=== PATIENT | male | born 1960 | race Caucasian/White ===

== ENCOUNTER → 2020-10-13 11:14 | Outpatient (BNVA) | payer OTHER, SELFPAY | PROVIDERS: Family Provider Physician Assistant Medical; PCP Physician Assistant Medical; Referring Provider Physician Assistant Medical; Visit Provider Orthopaedic Surgery | DX: M25.569 Pain in unspecified knee (principal) | CPT/HCPCS: 73560; 73565 ==

== ENCOUNTER → 2020-12-08 07:54 | Day surgery (SDC) | payer OTHER, SELFPAY | PROVIDERS: PCP Physician Assistant Medical; Visit Provider Orthopaedic Surgery | DX: Z01.818 Encounter for other preprocedural examination (principal) | CPT/HCPCS: 93005 ==

== ENCOUNTER → 2020-12-17 12:10 | Outpatient (BNVA) | payer OTHER, SELFPAY | PROVIDERS: PCP Physician Assistant Medical; Visit Provider Orthopaedic Surgery | DX: Z01.812 Encounter for preprocedural laboratory examination (principal); Z20.822 Contact with and (suspected) exposure to COVID-19 | CPT/HCPCS: 87635 ==

== ENCOUNTER 2020-12-22 09:49 | Observation (INO) | payer OTHER, SELFPAY ==
--- NOTE | 2020-12-08 07:54 | ECG_ITS ---
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 Measurements Intervals Hardy Rate: 57 P: 30 MT: 130 QRS: -22 QRSD: 114 T: 1 QT: 379 QTc: 370 Interpretive Statements SINUS BRADYCARDIA BORDERLINE LEFT AXIS DEVIATION [QRS AXIS < -20] MODERATE INTRAVENTRICULAR CONDUCTION DELAY [110+ ms QRS DURATION] MINIMAL VOLTAGE CRITERIA FOR LVH, CONSIDER NORMAL VARIANT [MEETS CRITERIA IN ONE OF: R(aVL), S(V1), R(V5), R(V5/V6)+S(V1)] Compared to ECG 06/29/2014 05:41:00 Intraventricular conduction delay now present Electronically Signed On 12-08-2020 19:21:30 CDT by Anabell Kang M.D. [id number]
[2020-12-08 08:04] VITALS: BMI 34.0
[2020-12-08 08:55] LABS: Basophils # 0.1 10^3/uL (0.0-0.1); Basophils % 1.4 %; Eosinophils # 0.2 10^3/uL (0.0-0.8); Eosinophils % 1.7 %; Hematocrit 38.1 % (42.0-52.0); Lymphocytes # 2.1 10^3/uL (0.8-4.8); Lymphocytes % 24.3 %; Mean Corpuscular HGB Conc 34.1 g/dL (30.0-36.0); Mean Corpuscular Hemoglobin 30.7 pg (28.0-34.0); Mean Corpuscular Volume 89.9 fl (80-94); Mean Platelet Volume 11.9 fL (7.4-10.4); Monocytes # 0.9 10^3/uL (0.2-0.9); Monocytes % 10.3 %; Neutrophils # 5.22 10^3/uL (1.8-7.7); Neutrophils % 60.7 %; Nucleated Red Blood Cells % 0 %; Platelet Count 211 10^3/cmm (130-400); Red Blood Count 4.24 10^6/uL (4.1-5.3); Red Cell Distribution Width 13.1 % (12.1-15.1); White Blood Count 8.6 10^3/uL (4.0-10.0)
[2020-12-08 09:15] LABS: Anion Gap 13.1 (5-19); Blood Urea Nitrogen 10 mg/dL (6-20); Calcium 9.7 mg/dL (8.5-10.5); Carbon Dioxide 25 mmol/L (22-29); Chloride 103 mmol/L (98-107); Glucose 106 mg/dL (65-115); Osmolality Calculated 283 mOsm/kg (285-295); Potassium 4.1 mmol/L (3.5-5.1); Sodium 137 mmol/L (136-145)
--- NOTE | 2020-12-08 10:51 | P.ANESASSM_ITS ---
Pre-Anesthetic Assessment Pre-Anesthetic Assessment: Height/Weight: Height 1.73 m Weight 101.605 kg Proposed Procedure: Operation Date: 12/22/20 09:35 Proposed Procedures p Total Knee Arthroplasty 69118 M17.0(Right) - Fly Cline MD Was Beta Rosetta taken within 24 hours: Yes Was Clonidine taken within 24 hours: N/A Social: Social History: No alcohol and No tobacco Exam: Pre-Anes Outpt Exam: alert, oriented x 3, clear to auscultation bilaterally and regular rate & rhythm Airway: Submandibular: WNL Cervical ROM: WNL MP: 2 Dentition: False Pulmonary: Pulmonary: COPD CV/HEM: CV/HEM: CAD (stents) and HTN Metabolic: Metabolic: Morbid obesity Anesthetic Plan: ASA status: 3 Anesthesia: Regional (specify below) (SAB with adductor canal blk) Risk of > 500 ml blood loss (7ml/kg in children): No PFSH Anesthesia PFSH: Medical History (Updated 11/09/20 @ 16:14 by Edith Galan MD) CAD (coronary artery disease) HTN (hypertension) Lower extremity edema Family History Mother CAD (coronary artery disease) Hypertension Father Cancer Hypertension Social History (Updated 11/05/20 @ 15:58 by Priti Tolbert RN) Smoking and tobacco status: former smoker Data Anesthesia CBC & Chem 7: 12/08/20 08:10 12/08/20 08:10 Other Labs: Laboratory Results - last 48 hr 12/08/20 12/08/20 08:10 08:10 WBC 8.6 RBC 4.24 Hgb 13.0 Hct 38.1 L MCV 89.9 MCH 30.7 MCHC 34.1 RDW 13.1 Plt Count 211 MPV 11.9 H Neut % (Auto) 60.7 Lymph % (Auto) 24.3 [place] % (Auto) 10.3 Eos % (Auto) 1.7 Baso % (Auto) 1.4 Neut # (Auto) 5.22 Lymph # (Auto) 2.1 [place] # (Auto) 0.9 Eos # (Auto) 0.2 Baso # (Auto) 0.1 Nucleated RBC % (auto) 0 Nucleated RBCs # 0.0 Sodium 137 Potassium 4.1 Chloride 103 Carbon Dioxide 25 Anion Gap 13.1 BUN 10 Creatinine 1.2 GFR Calculation 62.0 L Glucose 106 Calculated Osmolality 283 L Calcium 9.7 Cardiac Studies: No Data to Display
[2020-12-22] VITALS (19 sets, daily range): BP systolic 113–196; BP diastolic 59–112; PULSE 60–83; RESP 14–21; TEMP 36.3–37.2; O2SAT 90–100
[2020-12-22] MEDS: sodium chloride 0.9% 1,000 ML 30 ML IV (10:22)
[2020-12-22] MEDS: oxyCODONE 20 mg ER (12 HR) Tablet PO (10:22)
[2020-12-22] MEDS: gabapentin 300 mg Capsule PO ×2 (10:23→16:57)
[2020-12-22] MEDS: acetaminophen 500 mg Tablet 1000 MG PO ×2 (10:23→16:57)
[2020-12-22] MEDS: CELEcoxib 200 mg Capsule 400 MG PO (10:23)
--- NOTE | 2020-12-22 11:53 | P.ANESUD_ITS ---
Pre-Anesthetic Update Pre-Anesthetic Assessment: Date of Surgery/Procedure: 12/22/20 Preop Brandy gnosis: Osteoarthritis Proposed Procedure: Operation Date: 12/22/20 12:00 Proposed Procedures p Total Knee Arthroplasty 80062 M17.0(Right) - Fly Cline MD Any changes to Pre-Anesthetic Assessment?: No Last Intake: Intake Last Liquid Date 12/22/20 Last Liquid Time 06:00 Last Solid Date 12/21/20 Last Solid Time 22:00 Vitals: Temperature 98.6 F 12/22/20 10:12 Temperature Source Temporal Artery S can 12/22/20 10:12 Pulse Rate 71 12/22/20 10:12 Pulse Rhythm 12/22/20 10:01 Pulse Strength 3+ Normal 12/22/20 10:01 Respiratory Rate 18 12/22/20 10:22 Respiratory Depth Normal 12/22/20 10:22 Respiratory Patter n 12/22/20 10:22 Blood Pressure 196/106 12/22/20 10:12 Blood Pressure Chey n 136 12/22/20 10:12 Pulse Oximetry 98 12/22/20 10:22 Oxygen Delivery Me thod 12/22/20 10:12 Exam: Pre-Anes Outpt Exam: alert, oriented x 3, clear to auscultation bilaterally and regular rate & rhythm Other Pertinent Information: Other Pertinent Information: Plavix on Cardiac Studies: No Data to Display
--- NOTE | 2020-12-22 11:54 | ANES.PROC ---
Anesthesia Procedures Procedure/Date: 12/22/20 Nerve Block ^: Nerve Block 1: Main Anesthesia: general anesthesia Time Out Performed: Yes Consent: requested by attending/covering physician, from patient, risks and benefits reviewed and patient agrees to proceed Nerve block location: adductor canal (R) Anesthesia monitors applied: pulse oximetry, EKG, BP cuff and oxygen Nerve block position: supine Anesthetic Used: ropivicaine 0.5% and with decadron (4 mg) Amount of anesthesia used (mL): 30 Ultrasound used to: recognize landmarks and visualize and ID femerol nerve Nerve Stimulator Used?: No Interscalene/Femoral BLK: 4 stimuplex 21 g needle used for position and inplane approach, visualize local anesthetic spread and no vascular puncture identified Injection: neg aspiration of heme Patient Tolerated Procedure: well and no complications Complications: none
[2020-12-22] MEDS: EPINEPHrine 1 mg/mL INJ XX (13:08)
[2020-12-22] MEDS: ketorolac 30 mg/mL INJ IM (13:08)
[2020-12-22] MEDS: tranexamic acid 1,000 mg/10mL SDV 1000 MG IRRIGATION (13:08)
--- NOTE | 2020-12-22 14:14 | XR_ITS ---
WS: [id number] Exam: XR knee RT 1-2V 29860 Date/Time of Exam: 12/22/2020 2:14 PM Reason For Exam: Right Total Knee arthroplasty A total knee prosthesis has been placed and appears to be in satisfactory position. Postoperative mya nges in the adjacent soft tissues. XR/XR knee RT 1-2V 09687 IMPRESSION: 1. Total knee replacement in satisfactory position.
--- NOTE | 2020-12-22 14:15 | PM.OP ---
Operative Report Date of procedure: December 22, 2020 Pre-op Diagnosis: Osteoarthritis right knee Post-op diagnosis: same Post-op Findings: Same Procedure Done: Right total knee arthroplasty Pathology: none sent Surgeon: Fly Cline Anesthesia: General and Nerve Block (Adductor canal block) Estimated blood loss (mL): 100 Complications: None Findings: The patient had eburnated bone over his medial femoral condyle, medial tibial plateau, patella and trochlea Condition: stable Disposition: PACU Procedure: The patient was taken to the operating room. Patient was given 1 g of tranexamic acid . The above anesthesia provided by the anesthesia service. A timeout was performed. The patient was prepped and draped in the usual fashion with the lower extremity exposed. A anterior incision was made, midline, from a point proximal to the patella to the distal tibial tubercle. The knee was entered through a medial parapatellar approach. The patella could be displaced laterally and the knee flexed. The patellar fat pad was resected to provide better visibility. Retractors were placed medially and laterally adjacent to the tibial plateau. The femoral canal was drilled in line with the longitudinal axis of the femur. Intramedullary femoral guide for used to make a distal femoral cut in 5 degrees of valgus, resecting 8 mm from the more prominent condyle. Next the extra medullary tibial guide was placed in alignment with the longitudinal axis of the tibia. The cutting guides were set to remove just over 9 mm from the high tibial plateau. The proximal tibia was then cut. The femoral measuring guide was then placed over the distal femur. Rotation was verified checking the relationship of the guide to the condyle and the trochlear groove. The femur was measured and cut for the desired femoral component. The desired tibial baseplate was then chosen. A trial reduction with the femur tibial baseplate and polyethylene was done, assuring that the knee was stable throughout full motion. Ligament balancing involved a release of the deep medial collateral ligament.The tibia was prepared for the tibial baseplate. Patellar thickness was then measured. The patella was cut removing articular cartilage and prepared for appropriate size patellar button. surfaces were cleaned with a gentamicin/tranexamic acid solution. The femur tibia and patella were then press-fit into place. The posterior capsule and collateral ligaments were then injected with a solution of 100 mL of 0.2% ropivacaine, 1 mL of a 1:1000 epinephrine solution, 30 mg of Toradol, and 1 g of tranexamic acid. final polyethylene component was then snapped into place into the tibia. The extensor retinaculum was closed with a running 1 Stratafix.. The subcutaneous tissues were closed with 2-0 Vicryl and the skin was closed with a running 4-0 Stratafix. The wound was covered with a Dermabond Prinio dressing. It was covered with 4xrs and a compressive Tubigauae was applied. The patient was taken to recovery room in stable condition. [employer] total knee arthroplasty components were used includin) Size 5 triathalon cruciate retaining femoral component 2) Size 6 Tritanium tibial component 3) 38 mm /11 mm thickness Tritanium asymetric patella 4) Size 6/14 mm thickness CR tibial bearing insert
--- NOTE | 2020-12-22 16:35 | ANE.PACU2 ---
Inpatient post-anesthesia follow up: Airway intact: Yes Vital signs: Temperature 97.4 F Pulse Rate 71 Respiratory Rate 15 Blood Pressure 165/97 Pulse Oximetry 98 Oxygen Delivery Me thod Room Air Oxygen Flow Rate 6 Fraction of Inspir ed Oxygen Hydration adequate: Yes Nausea and vomiting: No Pain level: 2 Mental status: Baseline
[2020-12-22] MEDS: sodium chloride 0.9% 1,000 ML 100 ML IV (16:56)
[2020-12-22] MEDS: sennosides-docusate Tablet 2 TAB PO (16:56)
[2020-12-22] MEDS: isosorbide mononitrate ER 30 mg Tablet 15 MG PO (16:57)
[2020-12-22] MEDS: metoprolol tartrate 25 mg Tablet 12.5 MG PO (17:08)
[2020-12-22 20:09] LABS: Glucose Point of Care 191 mg/dL (70-110)
[2020-12-22] MEDS: CELEcoxib 200 mg Capsule PO (21:19)
[2020-12-23 00:02] VITALS: BP 122/74; PULSE 57; RESP 16; TEMP 36.4; O2SAT 93
[2020-12-23] MEDS: acetaminophen 500 mg Tablet 1000 MG PO ×2 (02:31→10:20)
[2020-12-23 03:08] LABS: Hemoglobin 11.3 g/dL (11.7-16.6)
[2020-12-23 03:26] VITALS: BP 116/67; PULSE 64; RESP 16; TEMP 36.6; O2SAT 94
[2020-12-23] MEDS: sodium chloride 0.9% 1,000 ML 100 ML IV (05:35)
--- NOTE | 2020-12-23 07:56 | PM.DCS ---
Discharge Providers Date of Discharge: December 23, 2020 Attending Provider at Discharge: Fly Cline MD Primary Care Provider: Dean Rojas Diagnoses at Discharge Discharge Diagnosis (1) Status post right knee replacement: Status: Acute (2) Osteoarthritis of right knee: Status: Resolved Reason for Visit Reason for Visit: primary osteoartrtiis Hospital Course Hospital Course The patient tolerated surgery well. They remained hemodynamically stable. They was begun on aspirin and foot pumps for DVT prophylaxis. The patient was mobilized with therapy beginning the day of surgery and by the first postoperative day independent with the walker. As the pain was adequately controlled and they were fully mobile they were discharged home. Physical Exam Narrative: EXAM NARRATIVE: On the day of discharge his knee incision was clean. They had no drainage. There is minimal swelling in the thigh and knee and the calf. No distal neurovascular deficits were noted Urinary Catheter Management^: F: Cath Placed During This Visit: yes, but has since been removed by the nurse Reason for Continuing Indwelling Catheter: Perioperative Use in Selected Surgeries Urinary Catheter Date of Insertion: 12/22/20 Urinary Catheter Time of Insertion: 12:40 Date Urinary Catheter Removed: 12/23/20 Time Urinary Catheter Discontinued: 06:23 Discharge Data Data Completed and Pending: Completed Studies During Hospitalization Category Date Time Status XR knee RT 1-2V 7 3560 Routine Exams 12/22/20 14:14 Completed Labs from last 24 hours 12/23/20 12/22/20 02:50 20:06 Hgb 11.3 L POC Glucose 191 H Vitals: Last Vital Signs Temp 97.8 F 12/23/20 03:26 Pulse 64 12/23/20 03:26 Resp 16 12/23/20 03:26 BP 116/67 12/23/20 03:26 Pulse Ox 94 12/23/20 03:26 Discharge Plan Discharge Patient Disposition: Home Condition: Stable Prescriptions: New oxycodone 5 mg Tablet 5 mg PO Q4H PRN (Reason: Moderate Pain) 7 Days RF: 0 acetaminophen 500 mg Tablet 1,000 mg PO Q8H 14 Days Qty: 84 RF: 0 celecoxib 200 mg Capsule 200 mg PO Q12H 14 Days Qty: 28 RF: 0 gabapentin 300 mg Capsule 300 mg PO BID 7 Days Qty: 14 RF: 0 Continued tramadol 50 mg tablet 50 mg PO Q6H PRN (Reason: pain) Qty: 30 RF: 0 furosemide 20 mg tablet 20 mg PO DAILY PRN (Reason: edema) Qty: 30 RF: 6 aspirin [Adult Low Dose Aspirin] 81 mg tablet,delayed release (DR/EC) 81 mg PO DAILY RF: 0 clopidogrel 75 mg tablet 75 mg PO DAILY Qty: 90 RF: 3 isosorbide mononitrate 30 mg tablet extended release 24 hr 15 mg PO BID Qty: 90 RF: 3 albuterol sulfate 90 mcg/actuation HFA aerosol inhaler 2 puff inhalation QID PRN (Reason: shortness of breath or wheezing) Qty: 8.5 RF: 0 losartan 100 mg tablet 150 mg PO DAILY Qty: 45 RF: 3 metoprolol tartrate 25 mg tablet 12.5 mg PO BID Qty: 90 RF: 3 mupirocin 2 % ointment 1 applic topical BID Qty: 15 RF: 0 Discharge Orders: Discharge Order (Routine); Ordered 12/23/20 Ordered By: Fly Cline Other Ambulatory Orders: DME: Walker (Order) Location: None Selected Ordered By: Fly Cline Referrals: Fly Cline MD [Physician] - 12/25/20 1:45 pm Discharge Diet: Advance as tolerated Discharge Activity: Limit activity as instructed Activity Restrictions/Additional Instructions: Okay to shower. Leave dressing in place Keep Tubigauze sleeve in place for swelling. Okay to remove for hygiene. Apply FirstIce up to 20 min/hr for pain and swelling Take Celebrex twice a day for the next 15 days for pain , discontinue other anti-inflammatories Take Neurontin twice a day for 7 days. Take Tylenol 500mg (1-2 tabs) as needed 3 times a day for mild pain take oxycodone for breakthrough pain. Exercises per physical therapy. May weight-bear as tolerated on total knee arthroplasty Discharge Attestations Time Spent in Discharge Care*: other Quality Metrics Clinical Quality Measures During this hospital stay, did patient experience: None Coding Level of Care Code Acute [facility] note Diagnoses Status post right knee replacement Z96.651 Osteoarthritis of right knee M17.11
[2020-12-23 08:00] VITALS: BP 167/91; PULSE 63; RESP 16; TEMP 36.6; O2SAT 96
[2020-12-23] MEDS: sennosides-docusate Tablet 2 TAB PO (08:16)
[2020-12-23] MEDS: clopidogrel 75 mg Tablet PO (08:16)
[2020-12-23 08:17] VITALS: BP 150/82
[2020-12-23] MEDS: aspirin 81 mg EC Tablet PO (08:17)
[2020-12-23] MEDS: gabapentin 300 mg Capsule PO (08:17)
[2020-12-23] MEDS: losartan 50 mg Tablet 150 MG PO (08:17)
[2020-12-23] MEDS: isosorbide mononitrate ER 30 mg Tablet 15 MG PO (08:27)
[2020-12-23] MEDS: metoprolol tartrate 25 mg Tablet 12.5 MG PO (08:30)
[2020-12-23] MEDS: CELEcoxib 200 mg Capsule PO (10:21)
--- NOTE | 2020-12-23 11:10 | PC.OT ---
OT EVALUATION ORDERS RECEIVED; SCREEN COMPLETED. PATIENT PUT OWN SOCKS ON THIS MORNING. VOICES NO FURTHER CONCERNS. NO SKILLED OT REQUIRED AT THIS TIME.
[2020-12-23 12:00] VITALS: BP 150/90; PULSE 72; RESP 18; TEMP 36.5; O2SAT 96
--- NOTE | 2020-12-23 13:54 | W.PM.OPSFHP ---
Same Day Surgery H&P Indication for Procedure/HPI DATE OF PROCEDURE: December 23, 2020 CHIEF COMPLAINT/INDICATIONFOR SURGICAL PROCEDURE: Osteoarthritis right knee here for elective right total knee arthroplasty PREOP DIAGNOSIS: Osteoarthritis right knee PLANNED PROCEDRUE: Operation Date: 12/22/20 12:00 Proposed Procedures p Total Knee Arthroplasty 20642 M17.0(Right) - Fly Cline MD Medications/Allergies* Home Medications Medication Instructions Recorded Confirmed Type aspirin 81 mg tablet,delayed 81 mg PO DAILY 12/19/19 12/22/20 History release Allergies/Adverse Reactions Allergy/AdvReac Type Severity Reaction Status Date / Time No Known Allergies Allergy Verified 12/22/20 09:59 Current Medications: Generic Name Dose Route Start Last Admin Trade Name Freq PRN Reason Stop Dose Admin Acetaminophen 1,000 mg 12/22/20 18:00 12/23/20 10:20 Acetaminophen 500 Mg Tablet PO 1,000 mg Q8H MIKE Administration Aspirin 81 mg 12/23/20 09:00 12/23/20 08:17 Aspirin 81 Mg Ec Tablet PO 81 mg DAILY MIKE Administration Celecoxib 200 mg 12/22/20 22:00 12/23/20 10:21 Celecoxib 200 Mg Capsule PO 200 mg Q12H MIKE Administration Clopidogrel Bisulfate 75 mg 12/23/20 09:00 12/23/20 08:16 Clopidogrel 75 Mg Tablet PO 75 mg DAILY MIKE Administration Gabapentin 300 mg 12/22/20 18:00 12/23/20 08:17 Gabapentin 300 Mg Capsule PO 300 mg BID MIKE Administration Isosorbide Mononitrate 15 mg 12/22/20 18:00 12/23/20 08:27 Isosorbide Mononitrate Er 30 Mg Tablet PO 15 mg BID MIKE Administration Losartan Potassium 150 mg 12/23/20 09:00 12/23/20 08:17 Losartan 50 Mg Tablet PO 150 mg DAILY MIKE Administration Metoprolol Tartrate 12.5 mg 12/22/20 18:00 12/23/20 08:30 Metoprolol Tartrate 25 Mg Tablet PO 12.5 mg BID MIKE Administration Senna/Docusate Sodium 2 tab 12/22/20 18:00 12/23/20 08:16 Sennosides-Docusate Tablet PO 2 tab BID MIKE Administration Pertinent History/Comorbid Conditions* Medical History (Updated 12/23/20 @ 07:56 by Fly Cline MD) CAD (coronary artery disease) HTN (hypertension) Lower extremity edema Family History (Updated 12/19/19 @ 11:36 by Priti Tolbert RN) CAD (coronary artery disease) Mother Cancer Father Hypertension Mother Father Social History Smoking and tobacco status: former smoker Pertinent Exam Findings alert, oriented x 3, clear to auscultation bilaterally, regular rate & rhythm and operative site marked Recommendations Surgery/Procedure today Coding Level of Care Code Acute Home [employer] Expert for Amor Matthews
--- NOTE | 2020-12-24 13:41 | PC.SOCIAL ---
discharge follow up call made, spoke with patient. patient is taking new medications as prescribed with pain relief. patient is using his walker for ambulation and tolerating well. patient states he is waiting on insurance to start physical therapy at [facility] in [facility]. patient is aware of follow up appointment with dr. delgado tomorrow. patient instructed to use ice 20 mins of every hour and to keep knee elevated if possible for swelling and comfort.
== END 2020-12-23 13:56 | disposition home or self-care (01) ==
LOC: OR 09:50 → MEDSURG 12-23 07:56
PROVIDERS: Anesthesiology; Admitting Provider Orthopaedic Surgery; PCP Physician Assistant Medical; Visit Provider Orthopaedic Surgery
PROC: (CPT 27447; principal; 2020-12-22 11:50)
DX: M17.11 Unilateral primary osteoarthritis, right knee (principal); J44.9 Chronic obstructive pulmonary disease, unspecified; I25.10 Atherosclerotic heart disease of native coronary artery without angina pectoris; I10 Essential (primary) hypertension; E66.01 Morbid (severe) obesity due to excess calories; Z68.34 Body mass index [BMI] 34.0-34.9, adult; Z95.5 Presence of coronary angioplasty implant and graft; Z82.49 Family history of ischemic heart disease and other diseases of the circulatory system; Z83.3 Family history of diabetes mellitus; Z87.891 Personal history of nicotine dependence; Z79.82 Long term (current) use of aspirin
CPT/HCPCS: 27447; 36415; 36416; 64447; 73560; 76942; 80048; 82962; 85018; 85025; 97110; 97116; 97161; C1776; G0378; J0171; J0330; J0690; J1100; J1580; J1885; J2405; J2704; J2710; J2795; J3010; J3490; J7030

== ENCOUNTER 2021-01-30 12:16 | Outpatient (CLI) | payer OTHER, SELFPAY ==
[2021-01-30 12:59] LABS: Alanine Aminotransferase 17 U/L (0-41); Albumin Level 4.2 g/dL (3.5-5.2); Alkaline Phosphatase 146 IU/L (40-130); Anion Gap 14.6 (5-19); Aspartate Amino Transferase 15 U/L (0-40); Blood Urea Nitrogen 13 mg/dL (8-23); C Reactive Protein 1.7 mg/L (0.0-4.9); Calcium 10.6 mg/dL (8.5-10.5); Carbon Dioxide 25 mmol/L (22-29); Chloride 102 mmol/L (98-107); Globulin 3.5 g/dL (1.3-4.6); Glomerular Filtration Rate 61.8 mL/min (90-130); Glucose 84 mg/dL (65-115); Osmolality Calculated 283 mOsm/kg (285-295); Potassium 4.6 mmol/L (3.5-5.1); Sodium 137 mmol/L (136-145); Total Bilirubin 0.3 mg/dL (0.15-1.2); Total Protein 7.7 g/dL (6.6-8.7)
[2021-02-02 15:10] LABS: Erythrocyte Sedimentation Rate 34 mm/hr (0-10)
== END 2021-01-30 12:17 | disposition home or self-care (01) ==
LOC: LAB 12:22
PROVIDERS: PCP Physician Assistant Medical; Visit Provider Orthopaedic Surgery
DX: Z98.890 Other specified postprocedural states (principal); Z96.651 Presence of right artificial knee joint
CPT/HCPCS: 36415; 80053; 80500; 85651; 86140; 87070; 87635; 89051

== ENCOUNTER 2021-02-03 10:43 | Day surgery (SDC) | payer OTHER, SELFPAY ==
[2021-02-03] VITALS (12 sets, daily range): BP systolic 112–163; BP diastolic 72–112; PULSE 61–74; RESP 16–22; TEMP 36.6–37.1; O2SAT 92–99; BMI 34.4
--- NOTE | 2021-02-03 11:32 | ANES.PREANE2 ---
Pre-Anesthetic Assessment Pre-Anesthetic Assessment: Height/Weight: Height 1.7 m Weight 99.79 kg Temp Pulse BP Pulse Ox 98.7 F 71 163/112 98 02/03/21 11:19 02/03/21 11:19 02/03/21 11:19 02/03/21 11:19 Preop Diagnosis: Persistent drainage right total knee Proposed Procedure: Operation Date: 02/03/21 12:10 Proposed Procedures p Irrigation and Debridement right knee 93844 Z96.651(Right) - Fly Cline MD Was Beta Rosetta taken within 24 hours: Yes Was Clonidine taken within 24 hours: N/A Social: Social History: No tobacco Exam: Pre-Anes Outpt Exam: alert, oriented x 3, clear to auscultation bilaterally and regular rate & rhythm Airway: Submandibular: WNL Cervical ROM: WNL MP: 2 Dentition: False History/ROS: No significant history except as noted and No significant complaints Pulmonary: Pulmonary: COPD CV/HEM: CV/HEM: CAD and HTN Comments: Stents on plavix Metabolic: Metabolic: Morbid obesity Anesthetic Plan: ASA status: 3 Anesthesia: Anesthesia Evaluation and General Risk of > 500 ml blood loss (7ml/kg in children): No PFSH Anesthesia PFSH: Medical History CAD (coronary artery disease) HTN (hypertension) Lower extremity edema Family History Mother CAD (coronary artery disease) Hypertension Father Cancer Hypertension Data Anesthesia Cardiac Studies: No Data to Display
[2021-02-03] MEDS: oxyCODONE 20 mg ER (12 HR) Tablet PO (11:48)
[2021-02-03] MEDS: gabapentin 300 mg Capsule PO (11:49)
[2021-02-03] MEDS: CELEcoxib 200 mg Capsule 400 MG PO (11:49)
[2021-02-03] MEDS: acetaminophen 500 mg Tablet 1000 MG PO (11:49)
--- NOTE | 2021-02-03 12:54 | W.PM.OPSUD ---
Surgery/Procedure H&P Update DATE OF PROCEDURE: February 03, 2021 DATE H&P PERFORMED: 01/30/21 H&P UPDATE INFORMATION: I have reviewed H&P completed within last 30 days CHANGES TO PREVIOUS DOCUMENTATION: Laboratory results have revealed a C-reactive protein of 1.7 and a sed rate of 34. His synovial fluid aspirate revealed only 240 WBC/ul. Cultures of the left knee aspirate were negative.. PREOP DIAGNOSIS: Persistent drainage right total knee PRIMARY INDICATION FOR PROCEDURE: We will proceed to the OR there is nothing to suggest a deep infection in the knee components would not need to be removed.. PLANNED PROCEDURE: Operation Date: 02/03/21 12:10 Proposed Procedures p Irrigation and Debridement right knee 01535 Z96.651(Right) - Fly Cline MD
--- NOTE | 2021-02-03 13:44 | PM.OP ---
Operative Report Date of procedure: February 03, 2021 Pre-op Diagnosis: Persistent drainage right total knee incision Post-op Diagnosis: Deep seroma right knee subcutaneous tissue, superficial eschar distal incision Post-op Findings: Seroma right proximal knee Procedure Done: Irrigation and debridement seroma right proximal knee incision Debridement superficial eschar right distal knee Specimens removed/disposition: Routine and anaerobic cultures x2 were sent from fluid emanating from the rent in the superior retinacular repair Pathology: none sent Surgeon: Fly Cline Anesthesia: General Estimated blood loss (mL): 5 Complications: None Findings: Patient had a serous fluid collection just proximal to the patella overlying his incision. A small 1 cm long rent was seen in his superior retinacular repair. No purulence or necrosis was identified. Over his distal incision area of the superficial eschar was identified approximately 2 cm in diameter. The area of eschar was a full-thickness extending down into the subcutaneous fat. No communication with the joint was identified. Condition: stable Disposition: PACU Procedure: The patient was taken to the operating in the supine position with the right lower extremity exposed. He was prepped and draped in the usual fashion. A timeout was performed. A 5cm long incision was made in the area of drainage and dissection carried down through the skin and subcutaneous fat to the extensor retinaculum where a serous fluid collection was identified. The retinacular repair beneath this fluid collection was probed and a rent identified communicating with the joint. Routine and anaerobic cultures x2 were obtained through the rent of fluid in the knee joint. No purulence necrosis or clinical signs of infection were identified. The edges of the retinaculum were opened and freshened up. They were approximated tightly with 1 Vicryl suture. The skin incision was irrigated with saline and closed with interrupted 1 Prolene and 0 Prolene sutures. Attention was then focused on the distal incision. Utilizing a scalpel blade eschar was elevated including skin and dermis from the lateral aspect of the distal incision. A vascular base was identified and clearly no communication with the joint was noted. The incision and distal wound were covered with Xeroflo gauze. 4 x 4 dressing sponges, compressive cotton padding, and Isaías wrap were applied. The patient is placed in a knee immobilizer. He was extubated and taken to recovery room in stable condition.
--- NOTE | 2021-02-03 13:52 | SUR.PHASEI ---
PT SLEEPING QUIETLY WITH ORAL AIRWAY IN PLACE, GOOD RESP EFFORT NOTED VSS. RT KNEE SOFT DRESSING D/I WITH KNEE IMMOBILIZER IN PLACE DISTAL FOOT PINK WARM WITH STRONG REGULAR PULSE NOTED PT AWAKES AND ORAL AIRWAY OUT PT VERBALIZED NO PAIN OR NAUSEA . VSS. PT ON RA TRIAL.
[2021-02-03] MEDS: fentaNYL 50 mcg/mL INJ 2mL IVP (13:59)
--- NOTE | 2021-02-03 14:04 | SUR.PHASEI ---
1359 PT C/O OF (BURNING PAIN TO RT KNEE) PT RATES AT 10 SEE PAIN MED GIVEN 1405 PT STATES PAIN IS (MUCH BETTER).
[2021-02-03] MEDS: oxyCODONE 5 mg IR Tab/Cap PO (14:40)
--- NOTE | 2021-02-03 16:38 | ANE.PACU2 ---
Inpatient post-anesthesia follow up: Airway intact: Yes Vital signs: Temperature 98 F Pulse Rate 61 Respiratory Rate 18 Blood Pressure 145/94 Pulse Oximetry 93 Oxygen Delivery Me thod Room Air Oxygen Flow Rate 8 Fraction of Inspir ed Oxygen Hydration adequate: Yes Nausea and vomiting: No Pain level: 2 Mental status: Baseline
== END 2021-02-03 15:19 | disposition home or self-care (01) ==
PROVIDERS: Orthopaedic Surgery; PCP Physician Assistant Medical; Visit Provider Orthopaedic Surgery
DX: Z96.651 Presence of right artificial knee joint (principal); L76.34 Postprocedural seroma of skin and subcutaneous tissue following other procedure; I10 Essential (primary) hypertension; I25.10 Atherosclerotic heart disease of native coronary artery without angina pectoris; Z82.49 Family history of ischemic heart disease and other diseases of the circulatory system
CPT/HCPCS: 27301; 87070; 87075; 87205; J0690; J1100; J2405; J2704; J3010

== ENCOUNTER 2021-02-24 09:38 | Outpatient (CLI) | payer OTHER, SELFPAY | END 2021-02-24 09:39 | disposition home or self-care (01) | LOC: WOUND 09:38 | PROVIDERS: PCP Physician Assistant Medical; Visit Provider Nurse Practitioner Family | DX: T81.89XA Other complications of procedures, not elsewhere classified, initial encounter (principal); Y83.8 Other surgical procedures as the cause of abnormal reaction of the patient, or of later complication, without mention of misadventure at the time of the procedure; Z87.891 Personal history of nicotine dependence | CPT/HCPCS: 11042; 87070; 87077; 87176; 87186; 87205; G0463 ==

== ENCOUNTER 2021-02-25 08:40 | Outpatient (CLI) | payer OTHER, SELFPAY ==
[2021-02-25 09:39] LABS: C Reactive Protein 42.7 mg/L (0.0-4.9)
[2021-02-27 16:44] LABS: Erythrocyte Sedimentation Rate 108 mm/hr (0-10)
== END 2021-02-25 08:41 | disposition home or self-care (01) ==
PROVIDERS: PCP Physician Assistant Medical; Visit Provider Orthopaedic Surgery
DX: Z96.651 Presence of right artificial knee joint (principal)
CPT/HCPCS: 36415; 85651; 86140; 87070; 87077; 87184; 87205; 87635

== ENCOUNTER → 2021-10-01 10:20 | Outpatient (BNVA) | payer OTHER, SELFPAY | PROVIDERS: PCP Physician Assistant Medical; Referring Provider Orthopaedic Surgery; Visit Provider Student in an Organized Health Care Education/Training Program | DX: T84.53XA Infection and inflammatory reaction due to internal right knee prosthesis, initial encounter (principal); Y83.8 Other surgical procedures as the cause of abnormal reaction of the patient, or of later complication, without mention of misadventure at the time of the procedure | CPT/HCPCS: 36415; 85025; 85651; 86140 ==

== ENCOUNTER → 2021-10-07 08:52 | Outpatient (BNVA) | payer OTHER, SELFPAY | PROVIDERS: PCP Physician Assistant Medical; Visit Provider Orthopaedic Surgery | DX: T84.53XA Infection and inflammatory reaction due to internal right knee prosthesis, initial encounter (principal); Y83.8 Other surgical procedures as the cause of abnormal reaction of the patient, or of later complication, without mention of misadventure at the time of the procedure | CPT/HCPCS: 73560; 73565; 87070; 87075; 87077; 87186; 87205 ==

== ENCOUNTER 2021-10-19 16:02 | Inpatient (IN) | payer OTHER, SELFPAY ==
[2021-10-16 13:04] VITALS: BMI 32.5
[2021-10-19] VITALS (15 sets, daily range): BP systolic 100–156; BP diastolic 60–107; PULSE 69–89; RESP 14–18; TEMP 36.4–37.5; O2SAT 90–99
[2021-10-19] MEDS: gabapentin 300 mg Capsule PO ×2 (11:32→22:09)
[2021-10-19] MEDS: CELEcoxib 200 mg Capsule 400 MG PO (11:35)
[2021-10-19] MEDS: oxyCODONE 20 mg ER (12 HR) Tablet PO (11:35)
[2021-10-19] MEDS: acetaminophen 500 mg Tablet 1000 MG PO ×2 (11:35→22:10)
[2021-10-19] MEDS: sodium chloride 0.9% 1,000 ML 30 ML IV (12:02)
[2021-10-19] MEDS: vancomycin 1,500 MG/300 ML PIGGYBACK 200 MG IV (12:03)
--- NOTE | 2021-10-19 12:04 | W.PM.OPSFHP ---
Same Day Surgery H&P Indication for Procedure/HPI DATE OF PROCEDURE: October 19, 2021 CHIEF COMPLAINT/INDICATIONFOR SURGICAL PROCEDURE: Deep infection right knee here for right total knee arthroplasty PREOP DIAGNOSIS: Infected right total knee PLANNED PROCEDURE: Operation Date: 10/19/21 12:05 Proposed Procedures p revision right total knee arthroplasty 09837,T84.53XA(Right) - Fly Cline MD Established 60 year old male here for post operative follow up of right total knee replacement DOS: 12/22/20, I&D of right knee 02/03/21. He states that he began having a reaction (facial rash)? to the Doxycycline, therefore he stopped taking the medication perhaps 6 weeks ago.? He describes increased swelling.? He describes stiffness and pain particularly at the end of the day.? He has continued to work. Radiographs were obtained and the knee was aspirated on 10/07/2021. Images showed some resorption around the tibial baseplate. Cultures revealed a staph epidermidis species. Mr. Garay was counseled on the phone regarding options. He was told that the ideal would be a two-stage exchange however he did not think that was financially possible for him and he could not tolerate the 3 to 4 months off of work. I discussed 1 stage exchange as an option. I told him he would have a higher risk of a failure but still a reasonable chance of allowing him quicker recovery. I have discussed the case with Dr. Robertson and the patient will need prolonged IV and possibly suppressive antibiotics. Medications/Allergies* Home Medications Medication Instructions Recorded Confirmed Type aspirin 81 mg tablet,delayed 81 mg PO DAILY 12/19/19 10/16/21 History release (Adult Low Dose Aspirin) Allergies/Adverse Reactions Allergy/AdvReac Type Severity Reaction Status Date / Time doxycycline Allergy ADR-Itching Verified 10/07/21 09:06 Current Medications: Generic Name Dose Route Start Last Admin Trade Name Freq PRN Reason Stop Dose Admin Sodium Chloride 1,000 mls @ 30 mls/hr 10/19/21 11:45 10/19/21 12:02 Sodium Chloride 0.9% IV 10/20/21 11:44 30 mls/hr .Q24H MIKE Administration Pertinent History/Comorbid Conditions* Medical History (Updated 03/18/21 @ 10:15 by Fly Cline MD) CAD (coronary artery disease) HTN (hypertension) Lower extremity edema Family History (Updated 12/19/19 @ 11:36 by Priti Tolbert RN) CAD (coronary artery disease) Mother Cancer Father Hypertension Mother Father Social History Smoking and tobacco status: never smoked Alcohol intake: never Pertinent Exam Findings alert, oriented x 3, clear to auscultation bilaterally and regular rate & rhythm Recommendations Surgery/Procedure today Coding Level of Care Code Acute 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
--- NOTE | 2021-10-19 12:23 | ANES.PREANE2 ---
Pre-Anesthetic Assessment Height/Weight: Height 1.73 m Weight 97.069 kg Temp Pulse Resp BP Pulse Ox 99.5 F 89 18 156/107 99 10/19/21 10:50 10/19/21 10:50 10/19/21 10:50 10/19/21 10:50 10/19/21 10:50 Preop Diagnosis: Infected right total knee Operation Date: 10/19/21 12:05 Proposed Procedures p revision right total knee arthroplasty 08454,T84.53XA(Right) - Fly Cline MD Familial anesthetic complications: Patient had a lot of pain during last PNB Was Beta Rosetta taken within 24 hours: N/A (Last metoprolol 10/16/21) Was Clonidine taken within 24 hours: N/A Last intake: Intake Last Liquid Date 10/18/21 Last Liquid Time 23:00 Last Solid Date 10/18/21 Last Solid Time 22:00 Social No alcohol and No tobacco Exam alert, oriented x 3, clear to auscultation bilaterally and regular rate & rhythm Airway Submandibular: within normal limits Cervical ROM: within normal limits Mallampati: Class II Dentition: false Pulmonary None reported CV/HEM Coronary Artery Disease and Hypertension None reported Hepatic None reported GI Gastroesophageal Reflux Disease (Well controlled ) Metabolic None reported Musc/skel Osteoarthritis/DJD Neuropsych None reported Anesthetic Plan ASA status: 3 Anesthesia: Anesthesia Evaluation, General and Regional (specify below) Other: We discussed risk and benefits of general vs spinal anesthesia including DVT risk, infection, paralysis/catastrophic nerve injury, back bruising/pain, PDPH, conversion to general in case of spinal, PONV, sore throat (sometimes severe), corneal abrasion, positioning and peripheral nerve injuries, life threatening allergic reaction, post operative ICU admission requiring prolonged intubation, stroke, heart attack, , post operative delirium and/or post operative cognitive decline, and rare incidences of recall (under general anesthesia). We discussed risk and benefits of nerve block for post op pain control including management of pain and titration of pain medications as signs/symptoms of nerve block wearing off begin to appear and/or prior bed. We discussed risk of failed nerve block, vascular injury or other vital structure injury, abscess/infection, LAST, and nerve injury. Patient elects general anesthesia with PNB only after induction of anesthesia . Risk of > 500 ml blood loss (7ml/kg in children): No Medications/Allergies Home Medications Medication Instructions Recorded Confirmed Last Taken Type aspirin 81 mg tablet,delayed 81 mg PO DAILY 12/19/19 10/16/21 10/09/21 History release (Adult Low Dose Aspirin) albuterol sulfate 90 mcg/actuation 2 puff INHALATION QID PRN #8.5 g 07/01/20 10/16/21 01/07/21 Rx aerosol inhaler tramadol 50 mg tablet 50 mg PO Q6H PRN #30 tab 10/13/20 10/19/21 10/17/21 Rx metoprolol tartrate 25 mg tablet 12.5 mg PO BID #90 tab 12/15/20 10/19/21 10/16/21 Rx clopidogrel 75 mg tablet (Plavix) 75 mg PO DAILY #90 tab 07/03/21 10/16/21 10/15/21 Rx losartan 100 mg tablet 150 mg PO DAILY #135 tab 07/20/21 10/19/21 10/16/21 Rx isosorbide mononitrate 30 mg 15 mg PO BID #90 tab 07/31/21 10/19/21 10/16/21 Rx tablet,extended release 24 hr Allergies Allergy/AdvReac Type Severity Reaction Status Date / Time doxycycline Allergy ADR-Itching Verified 10/07/21 09:06 Current Medications Generic Name Dose Route Start Last Admin Trade Name Freq PRN Reason Stop Dose Admin Sodium Chloride 1,000 mls @ 30 mls/hr 10/19/21 11:45 10/19/21 12:02 Sodium Chloride 0.9% IV 10/20/21 11:44 30 mls/hr .Q24H MIKE Administration PFSH Anesthesia Medical History CAD (coronary artery disease) HTN (hypertension) Lower extremity edema Family History Mother CAD (coronary artery disease) Hypertension Father Cancer Hypertension Social History Smoking and tobacco status: never smoked Alcohol intake: never Data Anesthesia Cardiac Studies: No Data to Display
--- NOTE | 2021-10-19 13:17 | ANES.PROC ---
Anesthesia Procedures Procedure/Date: 10/19/21 Nerve Block ^: Nerve Block 1: Main Anesthesia: general anesthesia Time Out Performed: Yes Consent: requested by attending/covering physician, from patient, risks and benefits reviewed and patient agrees to proceed Nerve block location: adductor canal Anesthesia monitors applied: pulse oximetry, EKG, BP cuff and oxygen Nerve block position: supine Anesthetic Used: bupivacaine 0.5% Amount of anesthesia used (mL): 20 Ultrasound used to: recognize landmarks and visualize and ID femerol nerve Interscalene/Femoral BLK: 4 stimuplex 21 g needle used for position and inplane approach, visualize local anesthetic spread and no vascular puncture identified Injection: neg aspiration of heme Patient Tolerated Procedure: well Additional Comments: After time out sterile prep, using sterile technique, and using real time US guidance for target selection needle was inserted with real time visualization of needle entry and real time visualization of needle advancement toward intended target. Negative aspiration. LA injected incrementally with negative aspiration every 5 cc and real time US visualization of LA spread throughout procedure. Tolerated well. Image(s) saved.
[2021-10-19] MEDS: tranexamic acid 1,000 mg/10mL SDV 1000 MG IV (13:20)
[2021-10-19] MEDS: tobramycin 40 mg/mL SDV 2mL 160 MG INJECTION (13:55)
[2021-10-19] MEDS: sodium chloride 0.9% 100 mL Bag XX (13:55)
[2021-10-19] MEDS: vancomycin 1,000 MG SDV 5000 MG XX (13:56)
[2021-10-19] MEDS: vancomycin 1,000 MG SDV 2000 MG XX (14:28)
--- NOTE | 2021-10-19 15:44 | PM.OP ---
Operative Report Date of procedure: October 19, 2021 Pre-op diagnosis: Preop Diagnosis Infected right total knee Post-op diagnosis: same Procedure done: Removal infected right total knee Implants: 2 large bag of Simplex Tobra and 1 bag Simplex P cement with 6 added grams of vancomycin powder Specimens removed/disposition: Synovial fluid and a synovial biopsy was sent for routine and anaerobic cultures Surgeon: Fly Cline Anesthesia: General and Nerve Block (Abductor canal block) Estimated blood loss (mL): 200 Tourniquet time (min): 98 Findings: The patient had purulence within the joint. There was loosening of the tibial component however the femoral and patellar components were well fixed. Condition: stable Disposition: PACU Brief History: Mr. Garay is a 60-year-old male with a chronically infected right total knee arthroplasty. Aspiration revealed a staph epidermidis species. He was taken to the operating room for removal of components and possible revision. Procedure: The patient was taken the operating room. He is given 1 g of Ancef and 1 g of tranexamic acid. His right lower extremity was prepped and draped in the usual fashion and a timeout performed. Initially a 15 cm long incision was made over the anterior knee and dissection was carried down to the extensor retinaculum. Electrocautery was used to enter the knee through a medial parapatellar approach. The patella was displaced laterally and the knee flexed. Additional purulent fluid was noted upon entering the knee and this was sent for routine and anaerobic cultures. Aggressive debridement was accomplished in the medial and lateral gutters and suprapatellar pouch to allow mobilization of the patella and retinaculum. The knee could be then flexed up and the patella displaced laterally. Flexible osteotomes could not be passed underneath the femur. The slaphammer was applied to the femur and the femur removed with minimal bone loss. Similar flexible osteotomes were passed beneath the tibia and the tibia excised with minimal difficulty. Finally osteotomes were passed beneath the patella and with somewhat more difficulty the patellar component was removed. There was little bone loss but a small fracture along the most lateral margin of the patella. Next an aggressive synovectomy was accomplished. Synovial tissue was further removed from the medial and lateral gutters as well as the posterior capsule. Sample of this synovial tissue from the posterior capsule was removed and also sent for routine and anaerobic culture. Bone loss was identified about the stem of the tibial baseplate. Utilizing curettes and a rongeur aggressive debridement was accomplished of fibronecrotic material in the proximal tibia. Similar debridement was accomplished across screw holes and down the femoral canal. At the conclusion of debridement there was a good rim of cortical bone peripherally about the tibia but some central cavitary deep defects in the area about the stem. There was generalized softening over the medial lateral femoral condyles and perhaps just a few millimeters of distal bone loss. Again a small fracture along the lateral margin the patella but overall patellar bone stock was reasonably well preserved. Due to the amount of cavitary bone loss and destruction of bone the patient was not felt to be a candidate for immediate repeat implantation of components. As he placed a very high premium on returning quickly back to work we will plan on a return in the next few weeks for a really two-stage exchange if he is responding well. The knee was irrigated with saline. Tourniquet was briefly deflated and hemostasis was provided with the Blank [employer] Nephew Werewolf Fastseal cautery. The tourniquet was then reinflated. The tobramycin and beads set cement were then mixed with additional 6 g of vancomycin. The antibiotic was allowed to sent. As the vancomycin sent 1 g of vancomycin powder was placed down the femoral, about the defect in the tibial stem, and across the posterior knee. A final cement block was placed between the femur and tibia and a small plate between the patella and anterior femur. The extensor retinaculum was closed with 0 Vicryl. The subcutaneous tissues were closed with 2-0 Vicryl. The skin was closed with interrupted 1 Prolene and hector. Xeroform gauze 4 x 4's web roll and Isaías wrap and a knee immobilizer were placed. The patient was extubated taken recovery room in stable condition.
--- NOTE | 2021-10-19 16:05 | ANE.PACU2 ---
Inpatient post-anesthesia follow up: Airway intact: Yes Vital signs: Temperature 99.5 F Pulse Rate 79 Respiratory Rate 16 Blood Pressure 134/81 Pulse Oximetry 91 Oxygen Delivery Me thod Room Air Oxygen Flow Rate 6 Fraction of Inspir ed Oxygen Hydration adequate: Yes Nausea and vomiting: No Pain level: 1 Mental status: Baseline
--- NOTE | 2021-10-19 17:08 | PC.PT ---
Pt just came up from recovery and is still feling foggy and confused a bit. Pt's eyes were closing and opening while talking with him. Pt will be seen in the AM tomorrow. Confirm WB status before getting him up since he has a spacer with antibiotics after hardware removal.
[2021-10-19] MEDS: sodium chloride 0.9% 1,000 ML 100 ML IV ×2 (17:33→22:11)
[2021-10-19] MEDS: metoprolol tartrate 25 mg Tablet 12.5 MG PO (22:10)
[2021-10-19] MEDS: isosorbide mononitrate ER 30 mg Tablet 15 MG PO (22:10)
[2021-10-19] MEDS: CELEcoxib 200 mg Capsule PO (22:11)
[2021-10-20] VITALS (7 sets, daily range): BP systolic 95–113; BP diastolic 48–68; PULSE 64–84; RESP 16–20; TEMP 36.4–36.7; O2SAT 92–95
[2021-10-20 03:31] LABS: Basophils % 0.3 %; Hematocrit 26.4 % (42.0-52.0); Hemoglobin 7.6 g/dL (11.7-16.6); Lymphocytes # 1.5 10^3/uL (0.8-4.8); Lymphocytes % 10.8 %; Mean Corpuscular HGB Conc 28.8 g/dL (30.0-36.0); Mean Corpuscular Hemoglobin 25.1 pg (28.0-34.0); Mean Corpuscular Volume 87.1 fl (80-94); Mean Platelet Volume 8.8 fL (7.4-10.4); Monocytes # 1.2 10^3/uL (0.2-0.9); Monocytes % 8.3 %; Nucleated Red Blood Cells % 0 %; Platelet Count 463 10^3/cmm (130-400); Red Blood Count 3.03 10^6/uL (4.1-5.3); Red Cell Distribution Width 15.2 % (12.1-15.1); White Blood Count 14.1 10^3/uL (4.0-10.0)
[2021-10-20] MEDS: acetaminophen 500 mg Tablet 1000 MG PO ×3 (03:40→20:55)
[2021-10-20] MEDS: oxyCODONE 5 mg IR Tab/Cap 10 MG PO (05:08)
[2021-10-20] MEDS: vancomycin 1,500 MG/300 ML PIGGYBACK 200 MG IV (05:08)
--- NOTE | 2021-10-20 08:09 | P.PN_ITS ---
Subjective Subjective: Tolerating pain. Good p.o. intake. Vitals/I&O/Wt Last Vital Signs Temp 98.1 F 10/20/21 07:53 Pulse 64 10/20/21 07:53 Resp 16 10/20/21 07:53 BP 95/55 10/20/21 07:53 Pulse Ox 93 10/20/21 07:53 10/19/21 10/20/21 10/20/21 22:59 06:59 14:59 Intake Total 1063.333 / 2363.333 Output Total 300 / 300 1200 / 1500 Balance 763.333 / 2063.333 -1200 / 863.333 Physical Exam Narrative: Right leg in immobilizer. An incision clean and dry Urinary Catheter Management: Stephenson: Cath Placed During This Visit: yes, but has since been removed by the nurse Reason for Continuing Indwelling Catheter: Decision to DC Catheter Urinary Catheter Date of Insertion: 10/19/21 Urinary Catheter Time of Insertion: 13:00 Date Urinary Catheter Removed: 10/20/21 Time Urinary Catheter Discontinued: 04:00 Data : 10/20/21 03:00 A&P Assessment and plan (1) Infection of total right knee replacement: Components removed. Dr. Robertson to assist with antibiotic management. We will plan on reimplantation of components with her assistance on timing. [place] certainly would be a 6-week delay. Mr. Garay places a high premium on returning back to work soon and full 6 weeks of IV antibiotics before reimplantation components may not be possible. 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
[2021-10-20] MEDS: aspirin 81 mg EC Tablet PO (08:13)
[2021-10-20] MEDS: CELEcoxib 200 mg Capsule PO ×2 (08:13→20:56)
[2021-10-20] MEDS: clopidogrel 75 mg Tablet PO (08:14)
[2021-10-20] MEDS: losartan 50 mg Tablet 150 MG PO (08:14)
[2021-10-20] MEDS: metoprolol tartrate 25 mg Tablet 12.5 MG PO ×2 (08:15→20:56)
[2021-10-20] MEDS: isosorbide mononitrate ER 30 mg Tablet 15 MG PO (08:16)
[2021-10-20] MEDS: gabapentin 300 mg Capsule PO ×2 (08:17→20:56)
--- NOTE | 2021-10-20 10:31 | PC.CHAP ---
Pastoral Care Encounter/Spiritual Assessment Type of Contact [] Declined boiler water tester visit [] Patient/Family/Request visit [] Outpatient visit [] Follow-up visit [] Physician referral [] Code/Alert [x] Routine visit [] Staff referral [] Actively dying [] Patient sleeping [] Family support [] [x] Out of room [] Palliative care [] [] Receiving care in room [] Pre-surgical visit [] Trauma [] Long length of stay [] ICU visit [] Other: Relational/Emotional Strength [] Patient feels connected with others/family/visitors/staff [] Distress [] Loneliness/isolation [] Abandonment Spirituality of Patient [] Person of Ruthie [] Attends Restoration of their Ruthie [] Believes in Prayer [] Reads Bible or Congregational materials [] There are Spiritual issues to be addressed Manager Qa Interventions [] Prayer [] Active listening [] Non-anxious presence [] Spiritual/emotional support [] Crisis/trauma care [] Spiritual counseling [] Bereavement support [] Provided bereavement packet [] Provided Bible/devotional materials [] Provided toy/stuffed animal, coloring book to patient or family member [] Provided Communion [] Anointing/[place] [] Salvation [] Completed spiritual assessment [] Other: Impact on Illness or Injury [] Angry [] Fearful [] Anxious [] Often cries [] Exhaustion [] Unable to work [] Unable to attend oriental orthodox [] Unable to walk/stand [] Unable to read [] Unable to drive [] Unable to eat/drink [] Unable to sleep [] Unable to be with family [] Patient intubated [] Other: Summary Time spent with patient
[2021-10-20 12:25] LABS: Glomerular Filtration Rate 68.3 mL/min (90-130)
[2021-10-20] MEDS: sodium chloride 0.9% 1,000 ML 100 ML IV (15:46)
--- NOTE | 2021-10-20 18:59 | PC.NURSE ---
Bedside report given to Linh WELCH at this time.
--- NOTE | 2021-10-20 20:55 | P.CONIM_ITS ---
Providers/Reason For Consult Consulting Physician/Specialty*: Amy Robertson MD/ Infectious Disease Reason for Consult*: Prosthetic joint infection Requesting Physician: Dr. Fly Cline Attending Physician: Fly Cline MD Primary Care Provider: Dean Rojas History of Present Illness History of Present Illness Sander Garay is a 60 year old male last seen by me in the infectious disease clinic on October 01, 2021. Briefly patient underwent an unremarkable right total knee arthroplasty on 12/22/2020 which was complicated by poor healing and persistent defect over distal lateral incision.? In 01/2021 he had serous drainage from his incision, and eventually was diagnosed with prosthetic joint infection after synovial aspirate showed staph epidermidis. He was started on treatment with p.o. doxycycline which he took for about 8 weeks and thereafter discontinued due to a photosensitive rash. He was improving while he was on the doxycycline but soon after discontinuation his knee started to become more swollen and painful than before. He denied any fever chills weight loss or constitutional symptoms. Inflammatory markers including ESR and CRP were found to be elevated, as was his white blood cell count. He was then referred back to orthopedics and underwent a joint aspiration which revealed staph epidermidis. 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 He was admitted to the hospital on October 19 and is now status post removal of all components of the infected right total knee. For findings noted patient had purulence within the joint. There was loosening of the tibial component however femoral and patellar components were well fixed. Aggressive synovectomy was pe rformed and tissue sent for cultures. At the conclusion of debridement he was noted to have cavitary bone loss and was not a candidate for immediate repeat implantation of components. Antibiotic impregnated cement blocks were placed. Preliminary gram stain shows rare white blood cells, no organisms. Cx remains pending. Review of Systems General: Reports: 10 or more systems reviewed and unremarkable except in HPI and below Const: Denies: fever(s), chills or body aches Eyes: Denies: change in vision, blurry vision or photophobia ENMT: Reports: hoarseness; Denies: throat pain, enlarged tonsils, odynophagia or nasal congestion Card: Denies: chest pain, palpitations, irregular heart rhythm, edema, swelling of feet/ankles, lightheadedness, pre-syncope, dyspnea on exertion or orthopnea Resp: Denies: dyspnea, productive cough, non-productive cough, wheezing, st ridor, pain on inspiration, change in phlegm color, hemoptysis or chest congestion GI: Denies: abdominal pain, nausea, vomiting, hematemesis, coffee ground emesis, dysphagia, heartburn, diarrhea, constipation, GI cramping, change in stool character, hematochezia or melena : Denies: flank pain, dysuria, urinary frequency, urinary urgency, urinary hesitancy or hematuria Musc: Denies: neck pain, back pain, extremity pain, joint swelling, joint warmth or deformity Neuro: Denies: headache(s), numbness in extremities, weakness in extremities, sensory changes, difficulty walking, frequent falls, dizziness, vertigo, behavioral changes, Slurred speech present or seizure-like activity Psych: Denies: anxiety, depression, suicidal ideation or homicidal ideation Endo: Denies: polyuria, polydipsia, tired all the time, cold intolerance or hot flashes Alec/Lymph: Denies: easy bruising or easy bleeding Medications/Allergies Home Medications Medication Instructions Recorded Confirmed Last Taken Type aspirin 81 mg tablet,delayed 81 mg PO DAILY 12/19/19 10/16/21 10/09/21 History release (Adult Low Dose Aspirin) albuterol sulfate 90 mcg/actuation 2 puff INHALATION QID PRN #8.5 g 07/01/20 10/16/21 01/07/21 Rx aerosol inhaler tramadol 50 mg tablet 50 mg PO Q6H PRN #30 tab 10/13/20 10/19/21 10/17/21 Rx metoprolol tartrate 25 mg tablet 12.5 mg PO BID #90 tab 12/15/20 10/19/21 10/16/21 Rx clopidogrel 75 mg tablet (Plavix) 75 mg PO DAILY #90 tab 07/03/21 10/16/21 10/15/21 Rx losartan 100 mg tablet 150 mg PO DAILY #135 tab 07/20/21 10/19/21 10/16/21 Rx isosorbide mononitrate 30 mg 15 mg PO BID #90 tab 07/31/21 10/19/21 10/16/21 Rx tablet,extended release 24 hr Allergies Allergy/AdvReac Type Severity Reaction Status Date / Time doxycycline Allergy ADR-Itching Verified 10/07/21 09:06 Current Medications Generic Name Dose Route Start Last Admin Trade Name Karson PRN Reason Stop Dose Admin Acetaminophen 1,000 mg 10/19/21 19:30 10/20/21 12:42 Acetaminophen 500 Mg Tablet PO 1,000 mg Q8H MIKE Administration Aspirin 81 mg 10/20/21 09:00 10/20/21 08:13 Aspirin 81 Mg Ec Tablet PO 81 mg DAILY MIKE Administration Celecoxib 200 mg 10/19/21 21:00 10/20/21 08:13 Celecoxib 200 Mg Capsule PO 200 mg Q12H MIKE Administration Clopidogrel Bisulfate 75 mg 10/20/21 09:00 10/20/21 08:14 Clopidogrel 75 Mg Tablet PO 75 mg DAILY MIKE Administration Gabapentin 300 mg 10/19/21 21:00 10/20/21 08:17 Gabapentin 300 Mg Capsule PO 300 mg BID@0900,2100 MIKE Administration Sodium Chloride 1,000 mls @ 100 mls/hr 10/19/21 16:24 10/20/21 15:46 Sodium Chloride 0.9% IV 100 mls/hr .Q10H MIKE Administration Vancomycin/PEG/NADA/Lysine/Water 1,500 mg in 300 mls @ 200 mls/hr 10/20/21 06:00 10/20/21 07:00 Vancocin IV Infused Q18H MIKE Infusion Isosorbide Mononitrate 15 mg 10/19/21 21:00 10/20/21 08:16 Isosorbide Mononitrate Er 30 Mg Tablet PO 15 mg BID@0900,2100 MIKE Administration Losartan Potassium 150 mg 10/20/21 09:00 10/20/21 08:14 Losartan 50 Mg Tablet PO 150 mg DAILY MIKE Administration Metoprolol Tartrate 12.5 mg 10/19/21 21:00 10/20/21 08:15 Metoprolol Tartrate 25 Mg Tablet PO 12.5 mg BID@0900,2100 MIKE Administration Oxycodone HCl 10 mg 10/19/21 16:24 10/20/21 05:08 Oxycodone 5 Mg Ir Tab/Cap PO 10 mg Q4H PRN Administration SEVERE PAIN PFSH Acute PFSH: Medical History (Updated 10/20/21 @ 21:13 by Amy Robertson MD) CAD (coronary artery disease) History of 2019 novel coronavirus disease (COVID-19) HTN (hypertension) Hyperlipidemia Lower extremity edema Surgical History (Updated 10/20/21 @ 21:13 by Amy Robertson MD) H/O knee surgery S/P tonsillectomy and adenoidectomy Family History Mother CAD (coronary artery disease) Hypertension Father Cancer Hypertension Social History Smoking and tobacco status: never smoked Alcohol intake: never Vitals/I&O/Wt Last Vital Signs Temp 98.0 F 10/20/21 15:34 Pulse 70 10/20/21 15:34 Resp 20 H 10/20/21 15:34 BP 95/48 10/20/21 15:34 Pulse Ox 94 10/20/21 15:34 10/20/21 10/20/21 10/20/21 06:59 14:59 22:59 Intake Total 1900 / 1900 Output Total 1200 / 1500 200 / 200 Balance -1200 / 956.961 3302 / 1900 -200 / 1700 Physical Exam Narrative: GENERAL: Awake, alert, oriented, in no acute distress. [] HEENT: Normocephalic, atraumatic, PERRLA. [] CHEST: Clear to auscultation bilaterally. [] CVS: S1, S2 normal. No murmur, rubs, gallops. Peripheral pulses palpable. [] ABDOMEN: Soft, nontender. Nondistended. Bowel sounds heard. [] NEUROVASCULAR: Awake, alert. Power 5/5 all extremities EXTREMITIES: s/p right knee surgery, dressing in place, not opened for current exam. ] Urinary Catheter Management: Stephenson: Cath Placed During This Visit: yes, but has since been removed by the nurse Reason for Continuing Indwelling Catheter: Decision to DC Catheter Urinary Catheter Date of Insertion: 10/19/21 Urinary Catheter Time of Insertion: 13:00 Date Urinary Catheter Removed: 10/20/21 Time Urinary Catheter Discontinued: 04:00 Data : 10/20/21 03:00 10/20/21 03:00 Micro: Microbiology 10/19/21 13:34 Gram Stain - WBC, no organisms Tissue 10/19/21 14:01 Gram Stain - WBC, no organisms Other Source Other data: Ordered: Body FL Cult&GS (synovial aspirate) Procedure Result Verified Site Gram Stain Final 10/08/21 Result RARE WHITE BLOOD CELLS NO ORGANISMS SEEN Body Fluid Culture Final 10/11/21 Organism 1 Staphylococcus epidermidis Growth FEW DAY 3 S epidermi M.I.C. RX --------- ------ * Ampicillin >8 R * Ciprofloxacin <=1 S * Clindamycin >4 R * Erythromycin >4 R * Gentamicin <=4 S * Levofloxacin <=1 S * Linezolid 2 S * Oxacillin >2 R * Penicillin >8 R * Rifampin <=1 S * Tetracycline <=4 S * Trimethoprim/Sulfamethoxazole >2/38 R Vancomycin 2 S Daptomycin <=0.5 S Ordered: Body FL Cult&GS (synovial aspirate) Procedure Result Verified Site Gram Stain Final 02/26/21 Result FEW WHITE BLOOD CELLS NO ORGANISMS SEEN Body Fluid Culture Final 03/01/21 Organism 1 Staphylococcus epidermidis Growth SCANT S epidermi M.I.C. RX --------- ------ * Ampicillin 4 R * Ciprofloxacin <=1 S * Clindamycin >4 R * Erythromycin >4 R * Gentamicin <=4 S * Levofloxacin <=1 S * Linezolid <=1 S * Oxacillin 2 R * Penicillin 8 R * Rifampin <=1 S * Tetracycline <=4 S * Trimethoprim/Sulfamethoxazole >2/38 R Vancomycin 2 S Daptomycin <=0.5 S Ordered: Tissue Cult GS Procedure Result Verified Site Gram Stain Final 02/25/21 Result NO WHITE BLOOD CELLS SEEN NO ORGANISMS SEEN Tissue Culture Final 02/28/21 Organism 1 Staphylococcus epidermidis Growth MODERATE S epidermi M.I.C. RX --------- ------ * Ampicillin <=2 R * Ciprofloxacin <=1 S * Clindamycin >4 R * Erythromycin >4 R * Gentamicin <=4 S * Levofloxacin <=1 S * Linezolid <=1 S * Oxacillin 2 R * Penicillin 8 R * Rifampin <=1 S * Tetracycline <=4 S * Trimethoprim/Sulfamethoxazole <=0.5/9.5 S Vancomycin 1 S Daptomycin <=0.5 S Body Fld Procedure Result Verified Site Body Fluid Culture Final 11/09/21-0824 NO GROWTH ON DAY 3 Body Fluid Culture Preliminary (changed) 02/02/21-1024 NO GROWTH ON DAY 2 Body Fluid Culture Preliminary (changed) 02/01/21-1001 NO GROWTH ON DAY 1 A&P Assessment and plan (1) Infection of total right knee replacement: Patient currently admitted for prosthetic joint infection oright knee replacement. He is now status post removal of all components on 10/19/2021, currently with antibiotic impregnated cement blocks in place. Cultures from the OR remain pending, gram stain is with no organisms, some WBC. Outpatient recent cultures from synovial aspirate show staph epidermidis again, previously also noted on synovial aspirates from February 2021. CRP 1.7 (02/15)--> 42.7 (03/17)--> 64 (10/16) Assuming that current OR cultures again reveal no organisms other than staph epidermidis, anticipate patient will need at least 6 weeks of IV vancomycin for treatment of prosthetic joint infection. Adjunctive rifampin not indicated at this time given all mental components have been removed. He is planned for a two-stage exchange, discussed extensively with patient that ideally I recommend waiting at least 6 to 8 weeks for treatment of P JI to ensure best chance at sterility before replacement of knee joint.However patient hesitant to wait this period. He is eager to return to work citing financial reasons. While not ideal, should patient end up undergoing a 2 stage exchange prior to 6 weeks, will likely add adjunctive Rifampin to treatment and consider chronic suppression with FQs. Continue iv vancomycin for now while awaiting OR cx results. Will follow. Status: Acute (2) Status post right knee replacement: Status: Acute Plan This documentation was created by [employer] client technologies analyst software. Every effort was made to ensure accuracy of client technologies analyst. Any obvious errors or omissions should be clarified with the author of the document. 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
[2021-10-21] VITALS (11 sets, daily range): BP systolic 112–175; BP diastolic 55–94; PULSE 65–86; RESP 16–18; TEMP 36.5–36.8; O2SAT 93–98
[2021-10-21] MEDS: vancomycin 1,500 MG/300 ML PIGGYBACK 200 MG IV ×2 (00:22→18:07)
[2021-10-21] MEDS: sodium chloride 0.9% 1,000 ML 100 ML IV ×3 (00:24→20:06)
[2021-10-21] MEDS: oxyCODONE 5 mg IR Tab/Cap 10 MG PO ×2 (02:38→08:51)
[2021-10-21] MEDS: CELEcoxib 200 mg Capsule PO ×2 (08:48→20:07)
[2021-10-21] MEDS: losartan 50 mg Tablet 150 MG PO (08:49)
[2021-10-21] MEDS: clopidogrel 75 mg Tablet PO (08:51)
[2021-10-21] MEDS: gabapentin 300 mg Capsule PO ×2 (08:51→20:06)
[2021-10-21] MEDS: isosorbide mononitrate ER 30 mg Tablet 15 MG PO (08:51)
[2021-10-21] MEDS: metoprolol tartrate 25 mg Tablet 12.5 MG PO ×2 (08:52→20:06)
[2021-10-21] MEDS: aspirin 81 mg EC Tablet PO (08:53)
--- NOTE | 2021-10-21 09:58 | XR_ITS ---
WS: [id number] Exam: XR chest 1V portable [id number] Date/Time of Exam: 10/21/2021 10:37 AM Reason For Exam: Post PICC placement Comparison 06/27/2014. A right-sided PICC line has been placed and appears to end in the midportion of the SVC. The lungs ar e fully expanded. There appears to be mild interstitial infiltrate in the left lung base. No pleural effusions. Cardiomediastinal structures are unremarkable for technique. XR/XR chest 1V portable [id number] IMPRESSION: 1. Right-sided PICC line ending in the midportion of the SVC. 2. Interstitial infiltrate in the left lung base.
[2021-10-21] MEDS: acetaminophen 500 mg Tablet 1000 MG PO ×2 (11:31→20:06)
--- NOTE | 2021-10-21 14:30 | P.PN_ITS ---
Subjective Subjective: Patient tolerating oral pain medications. Up with therapy. PICC line placed. Vitals/I&O/Wt Last Vital Signs Temp 98.0 F 10/21/21 11:57 Pulse 74 10/21/21 11:57 Resp 18 10/21/21 11:57 BP 128/70 10/21/21 11:57 Pulse Ox 94 10/21/21 11:57 O2 Del Method 10/21/21 08:43 O2 Flow Rate 6 10/20/21 09:00 10/20/21 10/21/21 10/21/21 22:59 06:59 14:59 Intake Total 500 / 2400 1403.333 / 3803.333 710 / 710 Output Total 400 / 400 225 / 625 Balance 1999 1178.333 / 3178.333 710 / 710 Physical Exam Narrative: Dressing changes right knee. Slight sanguinous drainage. Palpable right dorsalis pedis pulse. Flexes extends right toes and ankle. Urinary Catheter Management: Stephenson: Cath Placed During This Visit: yes, but has since been removed by the nurse Reason for Continuing Indwelling Catheter: Decision to DC Catheter Urinary Catheter Date of Insertion: 10/19/21 Urinary Catheter Time of Insertion: 13:00 Date Urinary Catheter Removed: 10/20/21 Time Urinary Catheter Discontinued: 04:00 Data : 10/20/21 03:00 10/20/21 03:00 Micro: Microbiology 10/19/21 14:01 Gram Stain - Final Other Source Abscess Culture - Preliminary 10/19/21 13:34 Gram Stain - Final Tissue Wound Culture - Preliminary Staphylococcus sp coag neg A&P Assessment and plan (1) Infection of total right knee replacement: I discussed duration of antibiotics with Sander. He does not feel that he can financially handle 6 to 8 weeks off of work before reimplantation. I will follow with his sed rate and C-reactive protein. As results begin to normalize we can consider reimplantation. I advised him that the sooner we reimplant components of the greater the risk of recurrent infection which could be catastrophic. Status: Acute Attestations Medical Necessity Statement*: Awaiting culture results and discharge plans per infectious disease Coding Level of Care Code Acute [employer] for [employer] [facility] Diagnoses Infection of total right knee replacement T84.53XA
[2021-10-21 17:03] LABS: Basophils # 0.1 10^3/uL (0.0-0.1); Basophils % 0.7 %; Eosinophils # 0.3 10^3/uL (0.0-0.8); Eosinophils % 2.6 %; Hemoglobin 6.9 g/dL (11.7-16.6); Lymphocytes # 2.4 10^3/uL (0.8-4.8); Mean Corpuscular HGB Conc 28.8 g/dL (30.0-36.0); Mean Corpuscular Hemoglobin 25.1 pg (28.0-34.0); Mean Corpuscular Volume 87.3 fl (80-94); Mean Platelet Volume 8.5 fL (7.4-10.4); Monocytes % 8.3 %; Neutrophils # 7.84 10^3/uL (1.8-7.7); Neutrophils % 64.8 %; Nucleated Red Blood Cells % 0 %; Platelet Count 423 10^3/cmm (130-400); Red Blood Count 2.75 10^6/uL (4.1-5.3); Red Cell Distribution Width 15.7 % (12.1-15.1); White Blood Count 12.1 10^3/uL (4.0-10.0)
[2021-10-21 17:34] LABS: C Reactive Protein 77.1 mg/L (0.0-4.9); Vancomycin Trough 16.6 ug/mL (10-15)
--- NOTE | 2021-10-21 22:46 | PM.PN ---
Subjective Subjective: Infectious disease progress note. Patient is status post placement of PICC line this morning. Tolerated procedure well. No acute concerns. Vancomycin trough is due at 5 PM today. Preliminary cultures from the joint show coag negative staph. Vitals/I&O/Wt Last Vital Signs Temp 97.9 F 10/21/21 20:00 Pulse 83 10/21/21 20:00 Resp 16 10/21/21 20:00 BP 140/72 10/21/21 20:00 Pulse Ox 97 10/21/21 20:00 O2 Del Method 10/21/21 20:00 O2 Flow Rate 6 10/20/21 09:00 10/21/21 10/21/21 10/21/21 06:59 14:59 22:59 Intake Total 1403.333 / 3803.333 710 / 710 1856.667 / 2566.667 Output Total 225 / 625 1050 / 1050 Balance 1178.333 / 3178.333 710 / 710 806.667 / 1516.667 Physical Exam Narrative: GENERAL: Awake, alert, oriented, in no acute distress. [] HEENT: Normocephalic, atraumatic, PERRLA. [] CHEST: Clear to auscultation bilaterally. [] CVS: S1, S2 normal. No murmur, rubs, gallops. Peripheral pulses palpable. [] ABDOMEN: Soft, nontender. Nondistended. Bowel sounds heard. [] NEUROVASCULAR: Awake, alert. No gross focal neurodeficits. Extremity right PICC line in place over forearm. Urinary Catheter Management: Stephenson: Cath Placed During This Visit: yes, but has since been removed by the nurse Reason for Continuing Indwelling Catheter: Decision to DC Catheter Urinary Catheter Date of Insertion: 10/19/21 Urinary Catheter Time of Insertion: 13:00 Date Urinary Catheter Removed: 10/20/21 Time Urinary Catheter Discontinued: 04:00 Data : 10/21/21 16:56 10/20/21 03:00 Micro: Microbiology 10/19/21 13:34 Gram Stain - Final Tissue Anaerobic Culture - Preliminary Wound Culture - Preliminary Staphylococcus sp coag neg 10/19/21 13:34 Anaerobic Culture - Preliminary Synovial Fluid 10/19/21 14:01 Gram Stain - Final Other Source Abscess Culture - Preliminary A&P Assessment and plan (1) Infection of total right knee replacement: status post removal of all components on 10/19/2021, currently with antibiotic impregnated cement blocks in place. Cultures from the OR preliminary show coag negative staph Outpatient recent cultures from synovial aspirate show staph epidermidis CRP 1.7 (02/15)--> 42.7 (03/17)--> 64 (10/16) Recommend treatment with at least 6 weeks of IV vancomycin for treatment of prosthetic joint infection. Adjunctive rifampin not indicated at this time given all mental components have been removed. He is planned for a two-stage exchange, discussed with patient again that I recommend waiting at least 6 to 8 weeks for treatment of P JI to ensure best chance at sterility before replacement of knee joint.However patient hesitant to wait this period. He is eager to return to work citing financial reasons. While not ideal, should patient end up undergoing a 2 stage exchange prior to 6 weeks, will likely add adjunctive Rifampin to treatment and consider chronic suppression with FQs. Will follow. Status: Acute (2) Status post right knee replacement: Status: Acute Plan This documentation was created by [employer] qualitative field project manager software. Every effort was made to ensure accuracy of qualitative field project manager. Any obvious errors or omissions should be clarified with the author of the document. 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
[2021-10-22] VITALS (8 sets, daily range): BP systolic 136–163; BP diastolic 79–88; PULSE 66–80; RESP 14–23; TEMP 36.4–36.8; O2SAT 93–98
[2021-10-22] MEDS: sodium chloride 0.9% 1,000 ML 100 ML IV ×2 (04:38→17:38)
[2021-10-22] MEDS: acetaminophen 500 mg Tablet 1000 MG PO ×3 (06:04→22:15)
[2021-10-22] MEDS: metoprolol tartrate 25 mg Tablet 12.5 MG PO ×2 (08:34→22:12)
[2021-10-22] MEDS: aspirin 81 mg EC Tablet PO (08:35)
[2021-10-22] MEDS: gabapentin 300 mg Capsule PO ×2 (08:36→22:14)
[2021-10-22] MEDS: CELEcoxib 200 mg Capsule PO ×2 (08:38→22:15)
[2021-10-22] MEDS: clopidogrel 75 mg Tablet PO (08:38)
[2021-10-22] MEDS: isosorbide mononitrate ER 30 mg Tablet 15 MG PO ×2 (08:39→22:13)
[2021-10-22] MEDS: losartan 50 mg Tablet 150 MG PO (08:39)
[2021-10-22] MEDS: vancomycin 1,500 MG/300 ML PIGGYBACK 200 MG IV (13:25)
--- NOTE | 2021-10-22 16:11 | PM.PN ---
Subjective Subjective: Patient's pain adequately controlled. No specific complaint Vitals/I&O/Wt Last Vital Signs Temp 98.0 F 10/22/21 14:58 Pulse 71 10/22/21 14:58 Resp 18 10/22/21 14:58 BP 144/82 10/22/21 14:58 Pulse Ox 98 10/22/21 14:58 O2 Del Method 10/22/21 14:58 O2 Flow Rate 6 10/20/21 09:00 10/22/21 10/22/21 10/22/21 06:59 14:59 22:59 Intake Total 1200 / 3766.667 238 / 238 Output Total 1150 / 2200 400 / 400 575 / 975 Balance 50 / 1566.667 -162 / -162 -575 / -737 Physical Exam Narrative: Staining right knee dressing. Strong dorsalis pedis pulse Urinary Catheter Management: Stephenson: Cath Placed During This Visit: yes, but has since been removed by the nurse Reason for Continuing Indwelling Catheter: Decision to DC Catheter Urinary Catheter Date of Insertion: 10/19/21 Urinary Catheter Time of Insertion: 13:00 Date Urinary Catheter Removed: 10/20/21 Time Urinary Catheter Discontinued: 04:00 Data : 10/21/21 16:56 10/20/21 03:00 Micro: Microbiology 10/19/21 13:34 Gram Stain - Final Tissue Anaerobic Culture - Preliminary Wound Culture - Preliminary Staphylococcus epidermidis 10/19/21 13:34 Anaerobic Culture - Preliminary Synovial Fluid 10/19/21 14:01 Gram Stain - Final Other Source Abscess Culture - Preliminary A&P Assessment and plan (1) Infection of total right knee replacement: Organism appears to be the same staph epidermidis species from previous cultures. Final antibiotic recommendations to be made by Dr. Robertson. I discussed future treatment plans of Mr. Garay. I told the ideal would be at least 6 weeks of IV antibiotics and reimplantation of components but he does not think this is possible. I will see him back in clinic in 2 weeks I will reassess labs and make a decision on timing of reimplantation of components. He is okay for discharge from Ortho standpoint. Final discharge plans antibiotics per Dr. Robertson Status: Acute Attestations Medical Necessity Statement*: Pending antibiotics per Dr. 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
--- NOTE | 2021-10-22 22:00 | PM.PN ---
Subjective Subjective: Infectious disease progress note. OR cultures have updated to reveal staph epidermidis again. Vancomycin trough at 16.6. Patient is planned for discharge today Vitals/I&O/Wt Last Vital Signs Temp 97.8 F 10/23/21 13:45 Pulse 64 10/23/21 13:45 Resp 14 10/23/21 13:45 BP 145/72 10/23/21 13:45 Pulse Ox 96 10/23/21 13:45 O2 Del Method 10/23/21 12:00 O2 Flow Rate 6 10/20/21 09:00 10/23/21 10/23/21 10/23/21 06:59 14:59 22:59 Intake Total 1528.333 / 3256.333 909 / 909 Output Total 350 / 2725 350 / 350 Balance 1178.333 / 531.333 559 / 559 Physical Exam Narrative: GENERAL: Awake, alert, oriented, in no acute distress. [] HEENT: Normocephalic, atraumatic, PERRLA. [] CHEST: Clear to auscultation bilaterally. [] CVS: S1, S2 normal. No murmur, rubs, gallops. Peripheral pulses palpable. [] ABDOMEN: Soft, nontender. Nondistended. Bowel sounds heard. [] NEUROVASCULAR: Awake, alert. No gross focal neurodeficits. Extremity right PICC line in place over forearm. Urinary Catheter Management: Stephenson: Cath Placed During This Visit: yes, but has since been removed by the nurse Reason for Continuing Indwelling Catheter: Decision to DC Catheter Urinary Catheter Date of Insertion: 10/19/21 Urinary Catheter Time of Insertion: 13:00 Date Urinary Catheter Removed: 10/20/21 Time Urinary Catheter Discontinued: 04:00 Data : 10/21/21 16:56 10/20/21 03:00 Micro: Microbiology 10/19/21 13:34 Gram Stain - Final Tissue Anaerobic Culture - Preliminary Wound Culture - Final Staphylococcus epidermidis 10/19/21 13:34 Anaerobic Culture - Preliminary Synovial Fluid 10/19/21 14:01 Gram Stain - Final Other Source Abscess Culture - Final Comments: Comment DEEP SYNOVIUM INFECTIED RIGHT KNEE Procedure Result Verified Site Gram Stain Final 10/20/21-1515 Result RARE WHITE BLOOD CELLS NO ORGANISMS SEEN Anaerobic Culture Preliminary 10/23/21-1407 NO ANAEROBES ISOLATED ON DAY 3 Anaerobic Culture Preliminary (changed) 10/22/21-1609 NO ANAEROBES ISOLATED ON DAY 2 Anaerobic Culture Preliminary (changed) 10/21/21-1634 NO ANAEROBES ISOLATED ON DAY 1 Wound Culture Final 10/23/21-1048 Organism 1 Staphylococcus epidermidis Growth FEW DAY 3 S epidermi M.I.C. RX --------- ------ * Ampicillin >8 R * Ciprofloxacin <=1 S * Clindamycin >4 R * Erythromycin >4 R * Gentamicin <=4 S * Levofloxacin <=1 S * Linezolid 2 S * Oxacillin >2 R * Penicillin >8 R * Rifampin <=1 S * Tetracycline <=4 S * Trimethoprim/Sulfamethoxazole >2/38 R Vancomycin 2 S Daptomycin <=0.5 S A&P Assessment and plan (1) Infection of total right knee replacement: status post removal of all components on 10/19/2021, currently with antibiotic impregnated cement blocks in place. Cultures from the OR showed staph epidermidis. This is a third joint culture which has revealed the same organism. CRP 1.7 (02/15)--> 42.7 (03/17)--> 64 (10/16) Recommend treatment with at least 6 weeks of IV vancomycin for treatment of prosthetic joint infection. Adjunctive rifampin not indicated at this time given all mental components have been removed. He is planned for a two-stage exchange; I recommend waiting at least 6 to 8 weeks for treatment of P JI to ensure best chance at sterility before replacement of knee joint.However patient hesitant to wait this period. He is eager to return to work citing financial reasons. Should patient end up undergoing a 2 stage exchange prior to 6 weeks, will likely add adjunctive Rifampin with IV vancomycin and extend treatment duration to 12 weeks. Oral transition with Fq+ Rifampin may be made at the 6 week ghanshyam in this situation. Thereafter will likely need consideration of chronic suppression with FQs. Follow-up in the infectious disease clinic when nearing completion of the 6-week treatment, or sooner if two-stage exchange is performed prior to 6 weeks as treatment modifications will need to be made. Stable for discharge from ID perspective While on the antibiotics he will need weekly CBC CMP ESR and CRP to be faxed over to infectious disease clinic. Status: Acute (2) Status post right knee replacement: Status: Acute Plan This documentation was created by [employer] blanket folder software. Every effort was made to ensure accuracy of blanket folder. Any obvious errors or omissions should be clarified with the author of the document. Attestations Medical Necessity Statement*: Per admitting Coding Level of Care Code Acute Deputy Commonwealth'S Attorney for Amor Matthews Diagnoses Infection of total right knee replacement T84.53XA Status post right knee replacement Z96.651
[2021-10-23] VITALS: BP 123/79; PULSE 62; RESP 17; TEMP 36.4; O2SAT 95
[2021-10-23] MEDS: sodium chloride 0.9% 1,000 ML 100 ML IV (03:31)
[2021-10-23] MEDS: acetaminophen 500 mg Tablet 1000 MG PO ×2 (04:19→12:03)
[2021-10-23 05:17] VITALS: BP 121/65; PULSE 68; RESP 17; TEMP 36.7; O2SAT 94
[2021-10-23] MEDS: vancomycin 1,500 MG/300 ML PIGGYBACK 200 MG IV (06:09)
[2021-10-23 08:00] VITALS: BP 157/85; PULSE 71; RESP 14; O2SAT 98
[2021-10-23] MEDS: isosorbide mononitrate ER 30 mg Tablet 15 MG PO (09:05)
[2021-10-23] MEDS: CELEcoxib 200 mg Capsule PO (09:05)
[2021-10-23] MEDS: gabapentin 300 mg Capsule PO (09:05)
[2021-10-23] MEDS: aspirin 81 mg EC Tablet PO (09:05)
[2021-10-23] MEDS: clopidogrel 75 mg Tablet PO (09:05)
[2021-10-23 09:06] VITALS: BP 157/85
[2021-10-23] MEDS: losartan 50 mg Tablet 150 MG PO (09:06)
[2021-10-23] MEDS: metoprolol tartrate 25 mg Tablet 12.5 MG PO (09:06)
[2021-10-23 12:00] VITALS: BP 145/72; PULSE 64; RESP 14; TEMP 36.6; O2SAT 96
[2021-10-23 13:45] VITALS: BP 145/72; PULSE 64; RESP 14; TEMP 36.6; O2SAT 96
--- NOTE | 2021-10-29 12:03 | PM.DCS ---
Discharge Providers Date of Admission: 10/19/21 16:02 Date of Discharge: 10/23/2021 Attending Provider at Admission: Fly Cline MD Attending Provider at Discharge: Fly Cline MD Primary Care Provider: Dean Rojas Diagnoses at Discharge Discharge Diagnosis (1) Infection of total right knee replacement: Status: Acute (2) Status post right knee replacement: Status: Resolved (3) Anemia, blood loss: Status: Acute Reason for Visit Reason for Visit: Infection and inflamatory reaction due to internal Brief History: Mr. Garay is a 60-year-old male with a history of a staph epidermis infection to his right knee. He was treated with debridement and antibiotic suppression with increasing pain. An aspirate of the knee revealed recurrent infection. Hospital Course Hospital Course Mr. Garay was taken to the operating room where he underwent removal of his components and placement of antibiotic spacers. He was admitted to the hospital for IV antibiotics was provided under the guidance of our infectious disease specialist Dr. Robertson. He remained hemodynamically stable throughout despite a decrease in his hemoglobin. He was treated with vancomycin ultimately discharged on home IV antibiotics on 10/23/2021. Physical Exam Narrative: On the day of discharge, he had slight drainage from his right knee incision He had no distal neurovascular deficits Urinary Catheter Management: Stephenson: Cath Placed During This Visit: yes, but has since been removed by the nurse Reason for Continuing Indwelling Catheter: Decision to DC Catheter Urinary Catheter Date of Insertion: 10/19/21 Urinary Catheter Time of Insertion: 13:00 Date Urinary Catheter Removed: 10/20/21 Time Urinary Catheter Discontinued: 04:00 Discharge Data Studies Completed and Pending Completed Studies During Hospitalization Category Date Time Status CXRP [XR chest 1V portable [id number]] Routine Exams 10/21/21 09:58 Completed Radiology Impressions Chest X-Ray 10/21/21 09:58 IMPRESSION: 1. Right-sided PICC line ending in the midportion of the SVC. 2. Interstitial infiltrate in the left lung base. Laboratory Results WBC 12.1 10^3/uL (4.0-10.0) H 10/21/21 16:56 RBC 2.75 10^6/uL (4.1-5.3) L 10/21/21 16:56 Hgb 6.9 g/dL (11.7-16.6) L 10/21/21 16:56 Hct 24.0 % (42.0-52.0) L 10/21/21 16:56 MCV 87.3 fl (80-94) 10/21/21 16:56 MCH 25.1 pg (28.0-34.0) L 10/21/21 16:56 MCHC 28.8 g/dL (30.0-36.0) L 10/21/21 16:56 RDW 15.7 % (12.1-15.1) H 10/21/21 16:56 Plt Count 423 10^3/cmm (130-400) H 10/21/21 16:56 MPV 8.5 fL (7.4-10.4) 10/21/21 16:56 Neut % (Auto) 64.8 % 10/21/21 16:56 Lymph % (Auto) 20.0 % 10/21/21 16:56 [place] % (Auto) 8.3 % 10/21/21 16:56 Eos % (Auto) 2.6 % 10/21/21 16:56 Baso % (Auto) 0.7 % 10/21/21 16:56 Neut # (Auto) 7.84 10^3/uL (1.8-7.7) H 10/21/21 16:56 Lymph # (Auto) 2.4 10^3/uL (0.8-4.8) 10/21/21 16:56 [place] # (Auto) 1.0 10^3/uL (0.2-0.9) H 10/21/21 16:56 Eos # (Auto) 0.3 10^3/uL (0.0-0.8) 10/21/21 16:56 Baso # (Auto) 0.1 10^3/uL (0.0-0.1) 10/21/21 16:56 Nucleated RBC % (auto) 0 % 10/21/21 16:56 Nucleated RBCs # 0.0 /100WBC 10/21/21 16:56 Creatinine 1.1 mg/dL (0.7-1.2) 10/20/21 03:00 GFR Calculation 68.3 mL/min (90-130) L 10/20/21 03:00 C-Reactive Protein 77.1 mg/L (0.0-4.9) H 10/21/21 16:56 Vancomycin Trough 16.6 ug/mL (10-15) H 10/21/21 16:56 Vitals Last Vital Signs Temp 97.8 F 10/23/21 13:45 Pulse 64 10/23/21 13:45 Resp 14 10/23/21 13:45 BP 145/72 10/23/21 13:45 Pulse Ox 96 10/23/21 13:45 O2 Del Method 10/23/21 12:00 O2 Flow Rate 6 10/20/21 09:00 Discharge Plan Discharge Patient Disposition: Home Condition: Stable Prescriptions: New acetaminophen 500 mg Tablet 1,000 mg PO Q8H 14 Days Qty: 84 0RF Continued tramadol 50 mg tablet 50 mg PO Q6H PRN (Reason: pain) Qty: 30 0RF aspirin [Adult Low Dose Aspirin] 81 mg tablet,delayed release (DR/EC) 81 mg PO DAILY albuterol sulfate 90 mcg/actuation HFA aerosol inhaler 2 puff inhalation QID PRN (Reason: shortness of breath or wheezing) Qty: 8.5 0RF metoprolol tartrate 25 mg tablet 12.5 mg PO BID Qty: 90 3RF losartan 100 mg tablet 150 mg PO DAILY Qty: 135 3RF isosorbide mononitrate 30 mg tablet extended release 24 hr 15 mg PO BID Qty: 90 3RF No Action finasteride 5 mg Tablet 5 mg PO BEDTIME pantoprazole 40 mg tablet,delayed release (DR/EC) 40 mg PO BID 42 Days Qty: 84 0RF Discharge Orders: Discharge Order (Routine); Ordered 10/22/21 Ordered By: Fly Cline Referrals: Fly Cline MD [Physician] - 10/27/21 8:45 am Discharge Diet: Advance as tolerated Discharge Activity: Limit activity as instructed Patient Instructions: Oxycodone, Rapid Release (By mouth), Celecoxib (By mouth), Knee Replacement (DC), Revision Total Joint Arthroplasty (DC), Opioid Safety Activity Restrictions/Additional Instructions: Strict nonweightbearing right lower extremity Absolutely no range of motion right knee May change dressing as needed for drainage Antibiotics per ID service Discharge Attestations Time Spent in Discharge Care*: other Quality Metrics Clinical Quality Measures [ No reported AMI, CVA or VTE this stay] Coding Level of Care Code Acute Chg FW DC note Diagnoses Infection of total right knee replacement T84.53XA Status post right knee replacement Z96.651 Anemia, blood loss D50.0
== END 2021-10-23 13:46 | disposition home health service (06) | DRG 468 ==
LOC: MEDSURG 10-20 09:50
PROVIDERS: Admitting Provider Orthopaedic Surgery; PCP Physician Assistant Medical; Visit Provider Orthopaedic Surgery
PROC: 0SPC0JZ Removal of Synthetic Substitute from Right Knee Joint, Open Approach (ICD-10-PCS; principal; 2021-10-19 11:50)
DX: T84.53XA Infection and inflammatory reaction due to internal right knee prosthesis, initial encounter (principal); Y79.2 Prosthetic and other implants, materials and accessory orthopedic devices associated with adverse incidents; T84.032A Mechanical loosening of internal right knee prosthetic joint, initial encounter; I25.10 Atherosclerotic heart disease of native coronary artery without angina pectoris; I10 Essential (primary) hypertension; E78.5 Hyperlipidemia, unspecified; Z79.82 Long term (current) use of aspirin; Z79.891 Long term (current) use of opiate analgesic
CPT/HCPCS: 36415; 36569; 51702; 71045; 80202; 82565; 85025; 86140; 87070; 87075; 87077; 87186; 87205; 94760; 97110; 97161; J0171; J1100; J1170; J1885; J2405; J2704; J2710; J2795; J3010; J3260; J3370; J3490; J7030

== ENCOUNTER 2021-10-24 02:40 | Inpatient (IN) | payer OTHER, SELFPAY ==
[2021-10-24] VITALS (30 sets, daily range): BP systolic 107–148; BP diastolic 61–90; PULSE 60–99; RESP 12–20; TEMP 36.6–37; O2SAT 93–100; BMI 32.5; BMI 32.0
--- NOTE | 2021-10-24 02:49 | XRR_ITS ---
PROCEDURE INFORMATION: Exam: XR Chest Exam date and time: 10/24/2021 2:57 AM Age: 60 years old Clinical indication: Chest pressure; Prior surgery; Surgery type: Coronary stents. Patient HX: C/O chest pain. ; Additional info: Cp TECHNIQUE: Imaging protocol: Radiologic exam of the chest. Views: 1 view. COMPARISON: CR XR chest 1V portable [id number] 10/21/2021 10:40 AM FINDINGS: Tubes, catheters and devices: PICC line is placed via the right extremity with its tip at the level of the superior vena cava. Lungs: Interstitial opacities are again seen in the left lung base and to a lesser extent, within the right lung base. This could represent bilateral basilar atelectasis although bilateral basilar interstitial pneumonia cannot be excluded. Pleural spaces: Unremarkable. No pleural effusion. No pneumothorax. Heart/Mediastinum: Unremarkable. No cardiomegaly. Bones/joints: Unremarkable. XR/XR chest 1V portable [id number] IMPRESSION: 1. PICC line placed via the right upper extremity with its tip at the level of the superior vena cava. 2. Interstitial opacity seen in the lung bases bilaterally, left prominent than right may represent atelectasis although bilateral basilar interstitial pneumonia cannot be excluded in the appropriate clinical setting.
--- NOTE | 2021-10-24 02:50 | ECG_ITS ---
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 Measurements Intervals [place] Rate: 98 P: 40 SC: 143 QRS: -49 QRSD: 136 T: 24 QT: 352 QTc: 449 Interpretive Statements SINUS RHYTHM RIGHT BUNDLE BRANCH BLOCK [120+ ms QRS DURATION, UPRIGHT V1, 40+ ms S IN I/aVL/V4/V5/V6] LEFT ANTERIOR FASCICULAR BLOCK [QRS AXIS <= -45, QR IN I, RS IN II] Compared to ECG 12/08/2020 08:29:02 Right bundle-branch block now present Left anterior fascicular block now present Sinus bradycardia no longer present Intraventricular conduction delay no longer present Electronically Signed On 10-24-2021 11:57:39 CDT by Burt Ayala M.D. [id number]
[2021-10-24 03:01] LABS: Basophils # 0.1 10^3/uL (0.0-0.1); Basophils % 0.5 %; Eosinophils # 0.1 10^3/uL (0.0-0.8); Eosinophils % 0.4 %; Hematocrit 27.7 % (42.0-52.0); Hemoglobin 8.1 g/dL (11.7-16.6); Lymphocytes # 1.3 10^3/uL (0.8-4.8); Lymphocytes % 6.8 %; Mean Corpuscular HGB Conc 29.2 g/dL (30.0-36.0); Mean Corpuscular Hemoglobin 25.3 pg (28.0-34.0); Mean Corpuscular Volume 86.6 fl (80-94); Mean Platelet Volume 8.9 fL (7.4-10.4); Monocytes # 1.5 10^3/uL (0.2-0.9); Monocytes % 8.3 %; Neutrophils # 14.63 10^3/uL (1.8-7.7); Neutrophils % 79.7 %; Nucleated Red Blood Cells % 0 %; Platelet Count 489 10^3/cmm (130-400); Red Cell Distribution Width 15.6 % (12.1-15.1); White Blood Count 18.4 10^3/uL (4.0-10.0)
--- NOTE | 2021-10-24 03:07 | ED_ITS ---
HPI - Chest Pain General: Chief Complaint: Chest Pain Stated Complaint: cp, resloved with nitro Time Seen by Provider: 10/24/21 02:49 Source: patient Mode of arrival: ambulatory Limitations: no limitations History of Present Illness: 60-year-old male states he bent over to pick remover a small dog at 10 PM. He states he bent over and stood up fast and when he stood up he started to feel lightheaded while he is gone and passed out and states he started having some shortness of breath. States he had some slight chest pain that lasted roughly 30 minutes he took a nitro states has been pain-free over the last 3 hours. He states he went to get checked out. He was recently discharged here for a right knee replacement infection he had discharged yesterday. Denies any fever has no complaints with his knee Associated symptoms: Deny abdominal pain, dyspnea, fever(s), nausea or vomiting Review of Systems Const: Denies: fever(s), chills, body aches or change in appetite Eyes: Denies: blurry vision or eye discomfort ENMT: Denies: throat pain or dental pain Card: Reports: chest pain Resp: Denies: dyspnea GI: Denies: abdominal pain, nausea, vomiting or diarrhea : Denies: dysuria Musc: Denies: neck pain or back pain Skin/Breast: Denies: rash Neuro: Denies: headache(s) Psych: Denies: depression Alec/Lymph: Denies: easy bruising All/Imm: Denies: urticaria PFSH ED PFSH: Medical History (Updated 10/24/21 @ 03:44 by Emily Irizarry MD) CAD (coronary artery disease) History of 2019 novel coronavirus disease (COVID-19) HTN (hypertension) Hyperlipidemia Lower extremity edema Surgical History (Updated 10/24/21 @ 00:01 by ) H/O knee surgery S/P tonsillectomy and adenoidectomy Family History Mother CAD (coronary artery disease) Hypertension Father Cancer Hypertension Social History Smoking and tobacco status: never smoked Alcohol intake: never Physical Exam Const: COMMON NORMALS: no acute distress, patient oriented x3 and healthy appearing HENMT: COMMON NORMALS: normocephalic and atraumatic HEAD & SCALP: normocephalic and atraumatic Eye: COMMON NORMALS: Equal, round and reactive pupils present and EOMs intact bilaterally PUPIL: Yes Equal, round and reactive pupils present Neck/C-Spine: COMMON NORMALS: full ROM and supple Chest: COMMONS NORMALS: normal inspection of the chest and normal palpation of entire chest wall Resp: COMMON NORMALS: normal respiratory effort, No retractions, No use of accessory muscles and clear to auscultation bilaterally AUSCULTATION: clear to auscultation bilaterally Cardio: COMMON NORMALS: regular rate, regular rhythm and No murmurs present (Cardio) RATE: regular rate RHYTHM: regular rhythm GI: COMMON NORMALS: Normal to inspection, nondistended, normoactive bowel sounds present, Soft to palpation, non-tender and no masses PALPATION: Yes Soft to palpation Extremity: COMMON NORMALS: normal to inspection and full ROM Neuro: COMMON NORMALS: patient oriented x3, moves all extremities and no focal motor deficits Psych: COMMON NORMALS: mental status grossly normal, Normal thought process present and cooperative THOUGHT PROCESS: Normal thought process present Skin: COMMON NORMALS: no rashes or lesions noted and no wounds GENERAL SKIN EXAM: no rashes or lesions noted Course Vital Signs: Vital signs: Vital Signs Temperature 98.0 F 10/24/21 02:44 Pulse Rate 87 10/24/21 03:46 Respiratory Rate 19 H 10/24/21 03:46 Blood Pressure 148/90 10/24/21 03:46 Pulse Oximetry 96 10/24/21 03:46 Oxygen Delivery Me thod 10/24/21 02:44 MDM - Chest Pain Medical Decision Making Patient presents here with chest pain along with some diaphoresis and near syncopal episode after trying to pick remover a dog. His pain was resolved here after nitro his troponin here is elevated EKG shows no signs of ST elevation we will give him Lovenox and admit to the hospitalist also spoke to the keno writer/runner who is consulted. Lab Data : 10/24/21 02:55 10/24/21 02:55 Laboratory Results WBC 18.4 10^3/uL (4.0-10.0) H 10/24/21 02:55 RBC 3.20 10^6/uL (4.1-5.3) L 10/24/21 02:55 Hgb 8.1 g/dL (11.7-16.6) L 10/24/21 02:55 Hct 27.7 % (42.0-52.0) L 10/24/21 02:55 MCV 86.6 fl (80-94) 10/24/21 02:55 MCH 25.3 pg (28.0-34.0) L 10/24/21 02:55 MCHC 29.2 g/dL (30.0-36.0) L 10/24/21 02:55 RDW 15.6 % (12.1-15.1) H 10/24/21 02:55 Plt Count 489 10^3/cmm (130-400) H 10/24/21 02:55 MPV 8.9 fL (7.4-10.4) 10/24/21 02:55 Neut % (Auto) 79.7 % 10/24/21 02:55 Lymph % (Auto) 6.8 % 10/24/21 02:55 [place] % (Auto) 8.3 % 10/24/21 02:55 Eos % (Auto) 0.4 % 10/24/21 02:55 Baso % (Auto) 0.5 % 10/24/21 02:55 Neut # (Auto) 14.63 10^3/uL (1.8-7.7) H 10/24/21 02:55 Lymph # (Auto) 1.3 10^3/uL (0.8-4.8) 10/24/21 02:55 [place] # (Auto) 1.5 10^3/uL (0.2-0.9) H 10/24/21 02:55 Eos # (Auto) 0.1 10^3/uL (0.0-0.8) 10/24/21 02:55 Baso # (Auto) 0.1 10^3/uL (0.0-0.1) 10/24/21 02:55 Nucleated RBC % (auto) 0 % 10/24/21 02:55 Nucleated RBCs # 0.0 /100WBC 10/24/21 02:55 Sodium 135 mmol/L (136-145) L 10/24/21 02:55 Potassium 5.0 mmol/L (3.5-5.1) 10/24/21 02:55 Chloride 103 mmol/L (98-107) 10/24/21 02:55 Carbon Dioxide 19 mmol/L (22-29) L 10/24/21 02:55 Anion Gap 18.0 (5-19) 10/24/21 02:55 BUN 17 mg/dL (8-23) 10/24/21 02:55 Creatinine 1.2 mg/dL (0.7-1.2) 10/24/21 02:55 GFR Calculation 61.8 mL/min (90-130) L 10/24/21 02:55 Glucose 125 mg/dL (65-115) H 10/24/21 02:55 Calculated Osmolality 283 mOsm/kg (285-295) L 10/24/21 02:55 Calcium 9.9 mg/dL (8.5-10.5) 10/24/21 02:55 Total Bilirubin 0.2 mg/dL (0.15-1.2) 10/24/21 02:55 AST 41 U/L (0-40) H 10/24/21 02:55 ALT 27 U/L (0-41) 10/24/21 02:55 Alkaline Phosphatase 132 IU/L (40-130) H 10/24/21 02:55 Troponin T Baseline 207 ng/L (0-15) H* 10/24/21 02:55 Total Protein 7.3 g/dL (6.6-8.7) 10/24/21 02:55 Albumin 3.2 g/dL (3.5-5.2) L 10/24/21 02:55 Globulin 4.1 g/dL (1.3-4.6) 10/24/21 02:55 EKG Data EKG 1: I personally reviewed and interpreted this EKG as follows: EKG interpretation date: 10/24/21 EKG interpretation time: 02:47 Interpretation: nsr hr [address] elevation rbbb qrs 136 qtc 407 Discharge Plan Discharge Patient Disposition: Admitted As Inpatient Clinical Impression: Non-ST elevation [place] (NSTEMI) Condition: Stable Coding Level of Care Code ED Ripening Room Attendant for Chg Fwd Exam Comprehensive
[2021-10-24 03:24] LABS: Alanine Aminotransferase 27 U/L (0-41); Albumin Level 3.2 g/dL (3.5-5.2); Alkaline Phosphatase 132 IU/L (40-130); Blood Urea Nitrogen 17 mg/dL (8-23); Calcium 9.9 mg/dL (8.5-10.5); Carbon Dioxide 19 mmol/L (22-29); Chloride 103 mmol/L (98-107); Globulin 4.1 g/dL (1.3-4.6); Glomerular Filtration Rate 61.8 mL/min (90-130); Glucose 125 mg/dL (65-115); Osmolality Calculated 283 mOsm/kg (285-295); Sodium 135 mmol/L (136-145); Total Bilirubin 0.2 mg/dL (0.15-1.2); Total Protein 7.3 g/dL (6.6-8.7)
[2021-10-24 03:27] LABS: Aspartate Amino Transferase 41 U/L (0-40)
[2021-10-24 03:28] LABS: Troponin(5th) Baseline 207 ng/L (0-15)
--- NOTE | 2021-10-24 04:49 | ECG_ITS ---
[facility] Test Date: 2021-10-24 Pat Name: Sander Garay Department: Room: 275 Gender: Male Billet Driller: : 1960 Requested By: Emily Irizarry Order Number: [id number] Babar MD: Burt Ayala M.D. Measurements Intervals [place] Rate: 84 P: 46 AL: 142 QRS: -44 QRSD: 133 T: 30 QT: 364 QTc: 430 Interpretive Statements SINUS RHYTHM LEFT AXIS DEVIATION [QRS AXIS < -30] RIGHT BUNDLE BRANCH BLOCK [120+ ms QRS DURATION, UPRIGHT V1, 40+ ms S IN I/aVL/V4/V5/V6] Compared to ECG 12/08/2020 08:29:02 Right bundle-branch block now present Sinus bradycardia no longer present Intraventricular conduction delay no longer present Electronically Signed On 10-24-2021 12:00:57 CDT by Burt Ayala M.D. [id number]
[2021-10-24 05:38] LABS: Troponin 5 2HR 340.5 ng/L (0-15); Troponin 5 2HR Delta 133.5 ABS# (0-10)
[2021-10-24 06:39] LABS: D Dimer 6.36 ug/mIFEU (0-0.59)
--- NOTE | 2021-10-24 07:06 | USCV_ITS ---
Sander Garay Age: 60 Gender: M : 1960 Exam Date: 10/24/2021 08:51 Ordering Phys: Amy Robertson MD Technologist: Cody Valera Exam Location: [facility] [place] Indication: nstemi BP: 131 / 80 HR: 81 Rhythm: Sinus Technical Quality: Adequate MEASUREMENTS (Male / Female) Normal Values 2D ECHO LV Diastolic Diameter PLAX 5.2 cm 4.2 - 5.9 / 3.9 - 5.3 cm LV Systolic Diameter PLAX 3.0 cm IVS Diastolic Thickness 1.3 cm 0.6 - 1.0 / 0.6 - 0.9 cm IVS Systolic Thickness 1.9 cm LVPW Diastolic Thickness 1.2 cm 0.6 - 1.0 / 0.6 - 0.9 cm LVPW Systolic Thickness 1.4 cm LVOT Diameter 2.2 cm LV Ejection Fraction 2D Teich 72.3 % LV Ejection Fraction MOD 2C 44.7 % LV Ejection Fraction 2C AL 45.3 % LA Diameter 4.6 cm M-MODE LV Diastolic Diameter MM 6.3 cm 4.2 - 5.9 / 3.9 - 5.3 cm LV Systolic Diameter MM 4.0 cm LV Ejection Fraction MM Teich 66.2 % IVS Diastolic Thickness MM 1.4 cm 0.6 - 1.0 / 0.6 - 0.9 cm IVS Systolic Thickness MM 2.0 cm LVPW Diastolic Thickness MM 1.5 cm 0.6 - 1.0 / 0.6 - 0.9 cm LVPW Systolic Thickness MM 2.0 cm RV Diastolic Diameter MM 1.1 cm Aortic Annulus Diameter 4.7 cm LA Ao Ratio MM 1.1 MV E Point Septal Separation 1.7 cm DOPPLER AV Peak Velocity 152.0 cm/s LVOT Peak Velocity 117.0 cm/s AV Area Cont Eq vti 3.2 cm squared AV Area Cont Eq pk 2.9 cm squared MV Area PHT 3.5 cm squared Mitral E to A Ratio 0.8 MV E' Velocity 36.5 cm/s Mitral E to MV E' Ratio 8.6 Mitral E to LV E' Lateral Ratio 7.4 Mitral E to LV E' Septal Ratio 10.4 TR Peak Velocity 171.0 cm/s TR Peak Gradient 11.7 mmHg TV Peak E Velocity 63.0 cm/s Right Atrial Pressure 3.0 mmHg Pulmonary Artery Systolic Pressu 14.7 mmHg PV Peak Velocity 103.0 cm/s FINDINGS Left Ventricle Normal left ventricular size. Moderate hypokinesis of the inferior base and mid inferior wall suggesting coronary artery disease. Ejection fraction 45%. Grade 1 diastolic dysfunction. Right Ventricle Normal right ventricular size and systolic function. Normal right ventricular systolic pressure. Right Atrium The right atrium is normal in size. Left Atrium The left atrium is normal in size. Mitral Valve Structurally normal mitral valve without significant stenosis or prolapse. There is no mitral regurgitation. Aortic Valve Structurally normal aortic valve without significant sclerosis or stenosis. There is no aortic regurgitation. Tricuspid Valve Structurally normal tricuspid valve. Trace tricuspid valve regurgitation. Pulmonic Valve Pulmonic valve not well visualized. Pericardium Normal pericardium without effusion. Aorta Normal ascending aorta dimension. IVC The inferior vena cava pulmonary and hepatic veins appear normal. CONCLUSIONS Normal left ventricular size. Moderate hypokinesis of the inferior base and mid inferior wall suggesting coronary artery disease. Ejection fraction 45%. Grade [address] Burt Ayala MD (Electronically Signed) Final Date: 24 October 2021 11:01 S
--- NOTE | 2021-10-24 07:07 | P.HP_ITS ---
Providers/Chief Complaint Admitting Physician: Amy Robertson MD Chief Complaint: cp, resloved with nitro History of Present Illness Sander Garay is a 60 year old male discharged yesterday after treatment for staph epidermidis PjI status post removal of all components on 10/19, discharged yesterday with IV antibiotics returns to the hospital this evening with chief complaints of chest pain. 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 Described as a pressure-like sensation. Lasted for about 30 minutes. Eventually relieved by nitro. Came into the ER with above complaints, found to have elevated troponin. EKG without acute ST-T wave changes. Currently being admitted in view of NSTEMI. Review of Systems General: Reports: 10 or more systems reviewed and unremarkable except in HPI and below Const: Denies: fever(s), chills or body aches Eyes: Denies: change in vision, blurry vision or photophobia ENMT: Reports: hoarseness; Denies: throat pain, enlarged tonsils, odynophagia or nasal congestion Card: Denies: chest pain, palpitations, irregular heart rhythm, edema, swelling of feet/ankles, lightheadedness, pre-syncope, dyspnea on exertion or orthopnea Resp: Denies: dyspnea, productive cough, non-productive cough, wheezing, stridor, pain on inspiration, change in phlegm color, hemoptysis or chest congestion GI: Denies: abdominal pain, nausea, vomiting, hematemesis, coffee ground emesis, dysphagia, heartburn, diarrhea, constipation, GI cramping, change in stool character, hematochezia or melena : Denies: flank pain, dysuria, urinary frequency, urinary urgency, urinary hesitancy or hematuria Musc: Denies: neck pain, back pain, extremity pain, joint swelling, joint warmth or deformity Neuro: Denies: headache(s), numbness in extremities, weakness in extremities, sensory changes, difficulty walking, frequent falls, dizziness, vertigo, behavioral changes, Slurred speech present or seizure-like activity Psych: Denies: anxiety, depression, suicidal ideation or homicidal ideation Endo: Denies: polyuria, polydipsia, tired all the time, cold intolerance or hot flashes Alec/Lymph: Denies: easy bruising or easy bleeding Medications/Allergies Home Medications Medication Instructions Recorded Confirmed Last Taken Type aspirin 81 mg tablet,delayed 81 mg PO DAILY 12/19/19 10/16/21 10/09/21 History release (Adult Low Dose Aspirin) albuterol sulfate 90 mcg/actuation 2 puff inhalation QID PRN 07/01/20 10/16/21 01/07/21 Rx aerosol inhaler shortness of breath or wheezing #8.5 grams tramadol 50 mg tablet 50 mg PO Q6H PRN pain #30 tabs 10/13/20 10/19/21 10/17/21 Rx metoprolol tartrate 25 mg tablet 12.5 mg PO BID #90 tabs 12/15/20 10/19/2110/16 Rx clopidogrel 75 mg tablet (Plavix) 75 mg PO DAILY #90 tabs 07/03/21 10/16/21 10/15/21 Rx losartan 100 mg tablet 150 mg PO DAILY #135 tabs 07/20/21 10/19/21 10/16/21 Rx isosorbide mononitrate 30 mg 15 mg PO BID #90 tabs 07/31/21 10/19/21 10/16/21 Rx tablet,extended release 24 hr acetaminophen 500 mg tablet 1,000 mg PO Q8H 14 days #84 tabs 10/22/21 Unknown Rx celecoxib 200 mg capsule 200 mg PO Q12H 14 days #28 caps 10/22/21 Unknown Rx oxycodone 5 mg tablet 10 mg PO Q4H PRN Severe Pain 7 10/22/21 Unknown Rx days #40 tabs Allergies Allergy/AdvReac Type Severity Reaction Status Date / Time doxycycline Allergy ADR-Itching Verified 10/21/21 11:40 PFSH Acute PFSH: Medical History CAD (coronary artery disease) History of 2019 novel coronavirus disease (COVID-19) HTN (hypertension) Hyperlipidemia Lower extremity edema Surgical History H/O knee surgery S/P tonsillectomy and adenoidectomy Family History Mother CAD (coronary artery disease) Hypertension Father Cancer Hypertension Social History Smoking and tobacco status: never smoked Alcohol intake: never Vitals/I&O/Wt Last Vital Signs Temp 98.0 F 10/24/21 02:44 Pulse 82 10/24/21 04:44 Resp 14 10/24/21 04:44 BP 141/89 10/24/21 04:44 Pulse Ox 99 10/24/21 04:44 O2 Del Method 10/24/21 05:08 Weight last 48 hrs Weight 95.527 kg Weight 97.069 kg Physical Exam Narrative: General: No acute distress, AO x3 HEENT: PERRLA, pupils bilaterally equal and reactive, pallors not present Chest: Normal vesicular breath sounds, no added sounds, equal good air entry bilaterally CVS: S1-S2 regular, no murmurs, no tachycardia, no gallops, no rubs Abdomen: Soft, nontender, no organomegaly, bowel sounds present Neuro: No focal deficits, no facial deformity, AO x3, power 5/5 in all limbs Data : 10/24/21 02:55 10/24/21 02:55 A&P Assessment and plan (1) Non-ST elevation [place] (NSTEMI): Admit to CSU EKG today without acute ST-T wave changes. Baseline troponin 07/27/2006, 2-hour at 348, delta troponin of 133. Together with symptoms of chest pain concerning for NSTEMI. Aspirin 325 mg Lovenox 1 mg/kg every 12 hours Closely monitor hemoglobin as had developed anemia postoperatively. Hemoglobin currently at 8.1. Continue home doses of aspirin 81 and Plavix 75 Check echocardiogram Cardiology consult N.p.o. for possible cath. 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 10/19, currently with cement spacers continue iv vancomycin, patient is to complete 6 weeks of iv abx Status: Acute Attestations Medical Necessity Statement*: >2midnight admission anticipated for NSTEMI Coding Level of Care Code Acute Webfocus Developer for [facility] Diagnoses Non-ST elevation GA (NSTEMI) I21.4 Infection of total right knee replacement T84.53XA
--- NOTE | 2021-10-24 08:04 | USR_ITS ---
PROCEDURE INFORMATION: Exam: US Duplex Lower Extremity Veins, Bilateral Exam date and time: 10/24/2021 9:08 AM Age: 60 years old Clinical indication: Abnormal findings; Abnormal lab test; Elevated d-dimer; Prior surgery; Surgery date: 3-7 days post-operative; Surgery type: Knee; Additional info: Dvt TECHNIQUE: Imaging protocol: Real-time Duplex ultrasound of the bilateral extremities with 2-D gonzalez scale, color Doppler flow and spectral waveform analysis with image documentation. Complete exam focused on the bilateral lower extremity veins. COMPARISON: MR knee RT wo con* [id number] 09/26/2020 12:25 PM FINDINGS: Right deep veins: Unremarkable. The common femoral, femoral, proximal profunda femoral and popliteal veins are patent without thrombus. Normal Doppler waveforms. Normal compressibility and/or augmentation response. Right superficial veins: Saphenofemoral junction is patent without thrombus. Left deep veins: Unremarkable. The common femoral, femoral, proximal profunda femoral and popliteal veins are patent without thrombus. Normal Doppler waveforms. Normal compressibility and/or augmentation response. Left superficial veins: Saphenofemoral junction is patent without thrombus. Soft tissues: Unremarkable. US/[place] [id number] IMPRESSION: No evidence of deep vein thrombosis.
--- NOTE | 2021-10-24 08:12 | P.CONIM_ITS ---
Providers/Reason For Consult Consulting Physician/Specialty*: Cardiovascular medicine Reason for Consult*: Chest pain, elevated troponin Requesting Physician: Hospitalist Attending Physician: Mynor May MD History of Present Illness History of Present Illness Sander Garay is a 60 year old male with a previous history of a right coronary artery stent in 2014. More recently he has been dealing with a right knee arthroplasty which has been giving him trouble. He had the knee replaced in November of last year but has struggled since with chronic drainage and a low- grade infection. He has been in and out of the clinic with orthopedics and has had a debridement in the past. Finally he was admitted with an infection just recently and had the components removed on the now 5 days ago. He just went home yesterday. He was outside last evening and bent down to hot die picker a dog. He had a sensation of tunnel vision, diaphoresis and achiness down both arms. There was no chest pain. This lasted for 30 minutes. He took a nitroglycerin but it did not relieve the discomfort immediately. 40 minutes later the pain went away. He came into the emergency room in the middle of the night. His first troponin was 207. The second is 340. His EKGs reveal sinus rhythm with a bifascicular block both of which are new from previous tracings. He remains free of any discomfort this morning. He has a history of coronary disease with a stent in 2014. He had COVID and has hypertension. Review of Systems Narrative: His review of systems is negative. Medications/Allergies Home Medications Medication Instructions Recorded Confirmed Last Taken Type aspirin 81 mg tablet,delayed 81 mg PO DAILY 12/19/19 10/16/21 10/09/21 History release (Adult Low Dose Aspirin) albuterol sulfate 90 mcg/actuation 2 puff inhalation QID PRN 07/01/20 10/16/21 01/07/21 Rx aerosol inhaler shortness of breath or wheezing #8.5 grams tramadol 50 mg tablet 50 mg PO Q6H PRN pain #30 tabs 10/13/20 10/19/21 10/17/21 Rx metoprolol tartrate 25 mg tablet 12.5 mg PO BID #90 tabs 12/15/20 10/19/21 10/16/21 Rx clopidogrel 75 mg tablet (Plavix) 75 mg PO DAILY #90 tabs 07/03/21 10/16/21 10/15/21 Rx losartan 100 mg tablet 150 mg PO DAILY #135 tabs 07/20/21 10/19/21 10/16/21 Rx isosorbide mononitrate 30 mg 15 mg PO BID #90 tabs 07/31/21 10/19/21 10/16/21 Rx tablet,extended release 24 hr acetaminophen 500 mg tablet 1,000 mg PO Q8H 14 days #84 tabs 10/22/21 Unknown Rx celecoxib 200 mg capsule 200 mg PO Q12H 14 days #28 caps 10/22/21 Unknown Rx oxycodone 5 mg tablet 10 mg PO Q4H PRN Severe Pain 7 10/22/21 Unknown Rx days #40 tabs Allergies Allergy/AdvReac Type Severity Reaction Status Date / Time doxycycline Allergy ADR-Itching Verified 10/21/21 11:40 PFSH Acute PFSH: Medical History CAD (coronary artery disease) History of 2019 novel coronavirus disease (COVID-19) HTN (hypertension) Hyperlipidemia Lower extremity edema Surgical History H/O knee surgery S/P tonsillectomy and adenoidectomy Family History Mother CAD (coronary artery disease) Hypertension Father Cancer Hypertension Social History Smoking and tobacco status: never smoked Alcohol intake: never Vitals/I&O/Wt Last Vital Signs Temp 98.0 F 10/24/21 02:44 Pulse 76 10/24/21 07:09 Resp 18 10/24/21 07:09 BP 131/80 10/24/21 07:09 Pulse Ox 93 10/24/21 07:09 O2 Del Method 10/24/21 07:09 Weight last 48 hrs Weight 210 lb 9.6 oz Weight 214 lb Physical Exam Narrative: GENERAL: In general he looks and feels well HEENT: Exam within normal limits. NECK: Supple without jugular vein distention. The carotid upstroke is normal without bruits. BACK: Exam normal. LUNGS: Clear. HEART: Regular rate and rhythm. ABDOMEN: Benign without organomegaly or tenderness. EXTREMITIES: No edema. NEUROLOGIC: Exam normal. SKIN: Unremarkable. Data : 10/24/21 02:55 10/24/21 02:55 A&P Assessment and plan (1) Non-ST elevation ME (NSTEMI): Status: Acute (2) Infection of total right knee replacement: Status: Acute (3) HTN (hypertension): Status: Acute Qualifiers: Hypertension type: essential hypertension Qualified Code(s): I10 - Essential (primary) hypertension (4) CAD (coronary artery disease): Status: Acute Qualifiers: Coronary Disease-Associated Artery/Lesion type: [place] artery [place] vs. transplanted heart: [place] heart Associated angina: without angina Qualified Code(s): I25.10 - Atherosclerotic heart disease of [place] coronary ar tracey without angina pectoris Plan The best approach is coronary angiography now. There is no benefit to stress testing. Additionally, he will need another surgical procedure for replacement of his knee components in a few weeks. We will get this done this morning. Consult Attestations Medical Necessity Statement: Hospital management of a non-ST segment elevation ME Coding Level of Care Code New Pt Acute Collection Development Librarian for g Fwd Patient Type New History Detailed Exam Detailed Medical Decision Making Moderate Complexity Diagnoses Non-ST elevation ME (NSTEMI) I21.4 Infection of total right knee replacement T84.53XA HTN (hypertension) I10 Hypertension type: essential hypertension CAD (coronary artery disease) I25.10 Coronary Disease-Associated Artery/Lesion type: [place] artery [place] vs. transplanted heart: [place] heart Associated angina: without angina
[2021-10-24 08:33] LABS: Reticulocyte % 3.2 % (0.5-2.0)
[2021-10-24] MEDS: aspirin 325 mg Tablet PO (08:45)
[2021-10-24] MEDS: diphenhydrAMINE 50 mg Capsule PO (08:45)
[2021-10-24 08:48] LABS: C Reactive Protein 63.7 mg/L (0.0-4.9); Ferritin 760 ng/mL (30-400); Iron 24 ug/dL (59-158)
[2021-10-24] MEDS: vancomycin 1,500 MG/300 ML PIGGYBACK 200 MG IV (08:48)
[2021-10-24] MEDS: sodium chloride 0.9% 1,000 ML 50 ML IV (08:48)
[2021-10-24] MEDS: oxyCODONE 5 mg IR Tab/Cap 10 MG PO ×2 (08:52→15:17)
[2021-10-24 08:55] LABS: Erythrocyte Sedimentation Rate 39 mm/hr (0-10)
--- NOTE | 2021-10-24 09:00 | XACV_ITS ---
Exam Room: [facility] Ht: 173 cm Wt: 95 kg BSA: 2.17 m2 Gender: Male : 1960 Any Known Allergies: Other Exam Priority: Routine Procedure(s): Procedure Description: Diagnostic procedure Procedure Description: PCI procedure Procedure Description: Left Heart Catheterization Procedure Description: Left ventriculography Procedure Description: Coronary Angiography Jamie GAVIRIA; Diagnostic Cath Status: Urgent Diagnostic Findings * Patient with prior stents in the right coronary artery and circumflex presented yesterday with chest discomfort, shortness of breath and elevated troponin. EKG findings are a bifascicular block which is new from previously. * Coronary angiography reveals right coronary artery dominance. The left main coronary artery is normal. The LAD is a relatively small vessel and contains mild luminal irregularities. The distal LAD provides collateral flow to the right coronary artery. Circumflex is a relatively large vessel. There is a patent stent proximally. There are minor luminal irregularities. The marginal branches provide collateral flow to the distal right as well. The right coronary artery is occluded at the end of the existing stents. Collateral flow as mentioned above comes from both the LAD and circumflex. An attempt to place a wire through this chronic total occlusion was unsuccessful. Conclusions 1. Chronic total occlusion of the right coronary artery at the end of existing stents. Mild left ventricular dysfunction. Recommendations * Medical treatment. Plavix may be discontinued. Upcoming planned orthopedic surgery may take place without other testing. Interventional RX Recommendation: medical therapy and/or counseling Diagnostic RX Recommendation: medical therapy and/or counseling Anticoagulation: Heparin Ventriculography Ejection Fraction: 45.0 % Pressures Phase:Rest AO : 86 / 64 ( 75 ) @ 10:51:00 AM 99 / 72 ( 86 ) @ 10:54:00 AM 91 / 70 ( 82 ) @ 10:55:00 AM 119 / 68 ( 91 ) @ 11:21:00 AM 122 / 69 ( 92 ) @ 11:21:00 AM 100 / 69 ( 85 ) @ 11:25:00 AM LV : 118 / -21 / 0 @ 11:18:00 AM 122 / -21 / 1 @ 11:18:00 AM 115 / -10 / 12 @ 11:21:00 AM 117 / -10 / 12 @ 11:21:00 AM Valves Phase:DefaultPhase AV : 0.0 @ 10:36:52 AM AV Mean Gradient: 0.0 @ 10:36:52 AM Clinical Evaluation EBL: 5mL-10mL Procedural Details Procedure Consent Obtained. Current Diagnosis : NSTEMI. Pre-Procedure Time Out. Identified patient by full name and date of as verbalized by the patient/guarantor. Does the consent match the physician's order: Yes. Accurate & Complete Informed Consent: Yes. Inpatient/Outpatient History & Physical on Chart: Yes. If H&P is completed, is and addenduem needed: No; If yes, is the addendum complete: N/A. Visualize and Verify Site with Patient/Guarantor: N/A. Relevant Radiology Images available: Yes. Pre-op teaching completed and patient verbalized understanding. The risks, benefits, and alternatives of sedation and/or procedure were discussed by physician. The patient agrees to continue. Procedure started. [facility] Clinical Fraility Score: 3: Managing Well. Guest Relation Officer Indications: ACS > 24 hours. Chest Pain Symptom Assessment: Typical Angina Symptoms. Correct patient, site and procedure confirmed by cath team. Current diagnosis: NSTEMI. PERRLA. Strong, equal hand cell tuber hand bilaterally. Lungs clear x 5 lobes. IV Site on Arrival: PICC line in right upper arm. IV Fluids: 0.9% NaCl at KVO. 0 mL infused prior to aquatic laborer. Oxygen started at 2liters/min via nasal canula. right groin was prepped with chloroprep then draped in the usual sterile fashion. right radial was prepped with chloroprep then draped in the usual sterile fashion. Physician arrived. Baseline sample Acquired. HR: 80 BPM. Physician scrubbed in. Immediate Pre-Procedure Time Out. Correct Patient: Yes; Correct Procedure: Yes; Correct Site: Yes; Correct Patient Position: Yes; Correct Supplies: Yes; Dried Flammable Prep: Yes; Blood Products Available: N/A;. Lidocaine 1% infiltrated to the right radial. Arterial access obtained. A 6 hong konger TIG catheter in over wire. wire out. glidewire inserted. Multiple views taken of left coronary artery. Catheter redirected to the RCA. Multiple views taken of right coronary artery. Catheter removed over the glide wire. A 5 hong konger Angled Pig catheter in over wire. Catheter removed over the glide wire. 6 hong konger JR 4 guide catheter was inserted over the wire. Guide catheter out. A TR Band was successful obtaining hemostatsis at the Right Radial artery insertion site. Lidocaine 1% infiltrated to the right groin. Arterial access obtained. A 5 hong konger Angled Pig catheter in over wire. EDP Sample taken: LV 118/-22,0; HR: 61 BPM; SpO2: 100%. EDP Sample taken: LV 122/-22,1; HR: 72 BPM; SpO2: 100%. LV gram performed in [place] @ 10 mL/second for a total of 30 mL. x2. EDP Sample taken: LV 115/-11,12; HR: 71 BPM; SpO2: 100%. Pullback taken: LV 117/-11,12; AO 119/68(91); Mean: 0mmHg, Peak to Peak: 0mmHg, SEP: 7sec/min; HR: 68 BPM; SpO2: 100%. Catheter out. 6 hong konger JR 4 guide catheter was inserted over the wire. River guidewire was advanced through the guide catheter to lesion in the mid RCA. Wire out. Guide catheter out. A Suture was successful obtaining hemostatsis at the Right Femoral artery insertion site. Sheath(s) sutured into position with 2-0 silk and sterile 4x4's and Op-site applied over the site. No oozing or signs and symptoms of hematoma noted. Arterial sheath flushed and connected to tranducer and pressure bag with heparinized saline. Post Procedure: Pulses reassessed and unchanged. PERRLA. Strong, equal hand cell tuber hand bilaterally. No VTE prophylaxis required. Medication's Wasted: Nitro = 49.8 mg. Medication's Wasted: Other = Versed 1 mg. Medication's Wasted: Other = Fentanyl 25 mcg. Medication's Wasted: Heparin = 4000 units. Total IV fluids: 75 mL. Contrast type used: Visipaque 320 mgI/mL, 200 mL bottle. Complications: None. Estimated blood loss: 5mL-10mL. Responsiveness - Normal response to verbal stimuli; alert and oriented, PERRLA. Airway - Unaffected, no intervention required; spontaneous ventilation. Circulation: W/N/L, pulses unchanged. Nausea/Vomiting: No. Patient transferred by bed to [facility]. Vital chart was stopped. Access Site Site: Right Radial artery Sheath Size: 6 Fr Hemostasis Method: TR Band Hemostasis Success: Successful Site: Right Femoral artery Sheath Size: 6 Fr Hemostasis Method: Suture Hemostasis Success: Successful Procedure Medications Start: 9:36 AM Stop: 9:36 AM Medication: Versed Amount: 1 mg Route: I.V. Start: 9:36 AM Stop: 9:36 AM Medication: Fentanyl Amount: 50 mcg Route: I.V. Start: 9:41 AM Stop: 9:41 AM Medication: Versed Amount: 1 mg Route: I.V. Start: 9:42 AM Stop: 9:42 AM Medication: Nitrogylcerin Amount: 200 mcg Route: I.A. Start: 9:44 AM Stop: 9:44 AM Medication: Heparin Amount: 5000 units Route: I.V. Start: 10:13 AM Stop: 10:13 AM Medication: Versed 1 mg and Fentanyl 25 mcg Amount: 1 Route: I.V. I, the attending physician, have reviewed and verified all procedure medications. Yes, all medications given per verbal order History/Risk Factors Hypertension: Yes Dyslipidemia: No Peripheral Arterial Disease (PAD): No Myocardial Infarction (NC): No Obesity: No Renal Disease: No Prior Interventions PCI: Yes CABG: No Valve Surgery: No Report Signatures Finalized by Dr. Burt Ayala MD on 10/24/2021 10:58 AM
--- NOTE | 2021-10-24 09:19 | ECG_ITS ---
[facility] Test Date: 2021-10-24 Pat Name: Sander Garay Department: Room: 275 Gender: Male Therapy Administrative Assistant: : 1960 Requested By: Emily Irizarry Order Number: [id number] Babar MD: Burt Ayala M.D. Measurements Intervals [place] Rate: 80 P: 35 [place]: 147 QRS: -41 QRSD: 135 T: 11 QT: 385 QTc: 446 Interpretive Statements SINUS RHYTHM LEFT AXIS DEVIATION [QRS AXIS < -30] RIGHT BUNDLE BRANCH BLOCK [120+ ms QRS DURATION, UPRIGHT V1, 40+ ms S IN I/aVL/V4/V5/V6] Compared to ECG 10/24/2021 04:49:57 No significant changes Electronically Signed On 10-24-2021 12:01:25 CDT by Burt Ayala M.D. [id number]
--- NOTE | 2021-10-24 11:02 | PC.RESP ---
Pt has refused ABG at this time.
[2021-10-24] MEDS: losartan 50 mg Tablet 150 MG PO (11:12)
[2021-10-24] MEDS: isosorbide mononitrate ER 30 mg Tablet 15 MG PO ×2 (11:12→18:05)
[2021-10-24] MEDS: clopidogrel 75 mg Tablet PO (11:13)
[2021-10-24] MEDS: metoprolol tartrate 25 mg Tablet 12.5 MG PO ×2 (11:13→18:05)
[2021-10-24] MEDS: pantoprazole 40 mg SDV IVP ×2 (11:13→21:24)
[2021-10-24] MEDS: sucralfate 1 gm Tablet PO ×3 (12:17→21:24)
[2021-10-24] MEDS: sodium chloride 0.9% 1,000 ML 100 ML IV (12:18)
--- NOTE | 2021-10-24 13:16 | PM.PN ---
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, he tells me that he has not had any chest pain overnight no shortness of breath, no calf pain, no calf swelling, he is having a venous ultrasound for DVT evaluation as I speak to him Vitals/I&O/Wt Last Vital Signs Temp 98.0 F 10/24/21 02:44 Pulse 67 10/24/21 11:47 Resp 15 10/24/21 11:47 BP 129/74 10/24/21 11:47 Pulse Ox 99 10/24/21 11:47 O2 Del Method 10/24/21 11:47 10/23/21 10/24/21 10/24/21 22:59 06:59 14:59 Intake Total 300 / 300 Output Total 650 / 650 Balance -350 / -350 Weight last 48 hrs Weight 95.527 kg Weight 97.069 kg Physical Exam Const: COMMON NORMALS: no acute distress and patient oriented x3 Resp: COMMON NORMALS: normal respiratory effort, No retractions, No use of accessory muscles and clear to auscultation bilaterally AUSCULTATION: clear to auscultation bilaterally Cardio: COMMON NORMALS: regular rate, regular rhythm, S1 normal heart sound present and S2 normal heart sound present RATE: regular rate RHYTHM: regular rhythm HEART SOUNDS: S1 normal heart sound present and S2 normal heart sound present GI: COMMON NORMALS: Normal to inspection, nondistended, normoactive bowel sounds present and non-tender Extremity: COMMON NORMALS: no pedal edema Neuro: COMMON NORMALS: patient oriented x3 Psych: COMMON NORMALS: mental status grossly normal Data : 10/24/21 02:55 10/24/21 02:55 A&P Assessment and plan (1) Non-ST elevation SD (NSTEMI): Admit to CSU EKG today without acute ST-T wave changes. Baseline troponin 07/27/2006, 2-hour at 348, delta troponin of 133. Together with symptoms of chest pain concerning for NSTEMI. Aspirin 325 mg Lovenox 1 mg/kg every 12 hours Closely monitor hemoglobin as had developed anemia postoperatively. Hemoglobin currently at 8.1. Continue home doses of aspirin 81 and Plavix 75 Protonix, Carafate, iron studies Check echocardiogram Elevated D-dimer, venous ultrasound for DVT Cardiology consult Will do cardiac cath 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 10/19, currently with cement spacers continue iv vancomycin, patient is to complete 6 weeks of iv abx Status: Acute Attestations Medical Necessity Statement*: Patient requires hospitalization for NSTEMI Coding Level of Care Code Acute Brakes Inspector for gregorio Early Diagnoses Non-ST elevation SD (NSTEMI) I21.4 Infection of total right knee replacement T84.53XA
--- NOTE | 2021-10-24 13:25 | PC.NURSE ---
called lab for the PTT ordered at 1238 pm they will come and get it.
[2021-10-24 15:05] LABS: Partial Thromboplastin Time 41.1 SECONDS (23.9-36.7)
--- NOTE | 2021-10-24 15:24 | PC.NURSE ---
sheath removal Explained procedure to pt. 6 Fr sheath in right femoral artery is removed. Manual pressure held for 20 mins. Hemostasis achieved. No hematoma, swelling, pain or bleeding noted during procedure. Pedal pulses are palpable +3 on right lower ext. 6 fr sheath catheter tip is intact. pt instructed to be on bedrest for 6 hrs post procedure and to keep HOB elevated not more than 30 deg. Pt instructed to notify nurse for any unusual back pain or discomfort on right groin, pressure or burning sensation and bleeding. Pt verbalizes understanding. Dressing applied to right groin to cover.
[2021-10-24 16:43] LABS: Hematocrit 21.9 % (42.0-52.0)
[2021-10-24 17:15] LABS: Hemoglobin 6.5 g/dL (11.7-16.6)
[2021-10-24 18:57] LABS: INR 1.18 (0.8-1.2)
[2021-10-24] MEDS: sodium chloride 0.9% (100 ml) 100 ML 20 ML (21:57)
[2021-10-25] VITALS (24 sets, daily range): BP systolic 105–158; BP diastolic 56–94; PULSE 65–93; RESP 16–20; TEMP 36.6–37.1; O2SAT 92–99
[2021-10-25] MEDS: oxyCODONE 5 mg IR Tab/Cap 10 MG PO ×2 (00:04→22:54)
[2021-10-25] MEDS: vancomycin 1,500 MG/300 ML PIGGYBACK 150 MG IV (01:12)
[2021-10-25 04:45] LABS: Basophils # 0.1 10^3/uL (0.0-0.1); Basophils % 0.7 %; Eosinophils # 0.3 10^3/uL (0.0-0.8); Eosinophils % 3.3 %; Hemoglobin 7.3 g/dL (11.7-16.6); Lymphocytes # 1.8 10^3/uL (0.8-4.8); Lymphocytes % 17.8 %; Mean Corpuscular HGB Conc 29.2 g/dL (30.0-36.0); Mean Corpuscular Hemoglobin 25.1 pg (28.0-34.0); Mean Corpuscular Volume 85.9 fl (80-94); Mean Platelet Volume 8.9 fL (7.4-10.4); Monocytes # 0.9 10^3/uL (0.2-0.9); Monocytes % 9.3 %; Neutrophils # 6.45 10^3/uL (1.8-7.7); Neutrophils % 64.9 %; Nucleated Red Blood Cells % 0.2 %; Platelet Count 363 10^3/cmm (130-400); Red Blood Count 2.91 10^6/uL (4.1-5.3); Red Cell Distribution Width 15.8 % (12.1-15.1); White Blood Count 9.9 10^3/uL (4.0-10.0)
[2021-10-25 05:09] LABS: Alanine Aminotransferase 19 U/L (0-41); Albumin Level 2.9 g/dL (3.5-5.2); Alkaline Phosphatase 109 IU/L (40-130); Anion Gap 14.1 (5-19); Aspartate Amino Transferase 23 U/L (0-40); Blood Urea Nitrogen 15 mg/dL (8-23); Calcium 9.6 mg/dL (8.5-10.5); Carbon Dioxide 21 mmol/L (22-29); Chloride 106 mmol/L (98-107); Globulin 3.3 g/dL (1.3-4.6); Glomerular Filtration Rate 68.3 mL/min (90-130); Glucose 119 mg/dL (65-115); Osmolality Calculated 286 mOsm/kg (285-295); Potassium 4.1 mmol/L (3.5-5.1); Sodium 137 mmol/L (136-145); Total Bilirubin 0.3 mg/dL (0.15-1.2); Total Protein 6.2 g/dL (6.6-8.7)
[2021-10-25 05:26] LABS: NT Pro B Type Natriuretic Pept 668 pg/mL (0-125); Procalcitonin 0.48 ng/mL (0-0.5)
[2021-10-25 05:38] LABS: C Reactive Protein 72.6 mg/L (0.0-4.9); Magnesium 1.9 mg/dL (1.7-2.3)
[2021-10-25] MEDS: sucralfate 1 gm Tablet PO ×4 (06:14→20:13)
[2021-10-25] MEDS: clopidogrel 75 mg Tablet PO (08:53)
[2021-10-25] MEDS: metoprolol tartrate 25 mg Tablet 12.5 MG PO ×2 (08:53→17:21)
[2021-10-25] MEDS: isosorbide mononitrate ER 30 mg Tablet 15 MG PO ×2 (08:53→17:21)
[2021-10-25] MEDS: aspirin 81 mg EC Tablet PO (08:54)
[2021-10-25] MEDS: losartan 50 mg Tablet 150 MG PO (08:54)
[2021-10-25] MEDS: pantoprazole 40 mg SDV IVP ×2 (08:55→20:13)
[2021-10-25] MEDS: iron sucrose 200 MG in sodium chloride 0.9% (100 ml) 100 ML 220 MG IV (08:55)
--- NOTE | 2021-10-25 09:04 | P.PN_ITS ---
Subjective Subjective: [place] had a unit of packed red cells yesterday as well as a unit of fresh frozen plasma. His hemoglobin had dropped. Today he is getting an iron infusion and another unit of packed red cells. No further chest pain. I discussed the results of the angiogram with his family in detail yesterday. He and I had that discussion today. Vitals/I&O/Wt Last Vital Signs Temp 98.1 F 10/25/21 08:00 Pulse 93 10/25/21 08:43 Resp 16 10/25/21 08:43 BP 154/93 10/25/21 08:54 Pulse Ox 92 10/25/21 08:43 O2 Del Method 10/25/21 08:43 10/24/21 10/25/21 10/25/21 22:59 06:59 14:59 Intake Total 1000 / 1300 1964 / 3264 Output Total 200 / 850 1200 / 2050 Balance 800 / 450 764 / 1214 Weight last 48 hrs Weight 210 lb 9.6 oz Weight 214 lb Physical Exam Narrative: GENERAL: General he is awake alert and looks and feels well today HEENT: Exam within normal limits. NECK: Supple without jugular vein distention. The carotid upstroke is normal without bruits. BACK: Exam normal. LUNGS: Clear. HEART: Regular rate and rhythm. ABDOMEN: Benign without organomegaly or tenderness. EXTREMITIES: No edema. The right radial entry site is flat, dry without bleeding or hematoma. The right groin entry site is flat, dry without hematoma, swelling or bleeding. NEUROLOGIC: Exam normal. SKIN: Unremarkable. Data : 10/25/21 04:20 10/25/21 04:20 A&P Assessment and plan (1) Non-ST elevation PA (NSTEMI): Status: Acute (2) Infection of total right knee replacement: Status: Acute (3) HTN (hypertension): Status: Acute Qualifiers: Hypertension type: essential hypertension Qualified Code(s): I10 - Essential (primary) hypertension (4) CAD (coronary artery disease): Status: Acute Qualifiers: Coronary Disease-Associated Artery/Lesion type: [place] artery [place] vs. transplanted heart: [place] heart Associated angina: without angina Qualified Code(s): I25.10 - Atherosclerotic heart disease of [place] coronary artery without angina pectoris (5) Iron deficiency anemia: Status: Acute Plan His right coronary artery is chronically occluded. His ejection fraction is about 45%. There is no significant disease on the left. Orthopedic surgery can occur at any time. The Plavix can be discontinued. His other medicines should remain the same. He can go home anytime from a cardiac standpoint. His angina was very likely exacerbated by the rather profound anemia. Attestations Medical Necessity Statement*: Management of chest pain, anemia and acute PA. Coding Level of Care Code Established Pt Acute Intranet Developer for Fionag [place] Patient Type Established History Detailed Exam Detailed Medical Decision Making Moderate Complexity Diagnoses Non-ST elevation PA (NSTEMI) I21.4 Infection of total right knee replacement T84.53XA HTN (hypertension) I10 Hypertension type: essential hypertension CAD (coronary artery disease) I25.10 Coronary Disease-Associated Artery/Lesion type: [place] artery [place] vs. transplanted heart: [place] heart Associated angina: without angina Iron deficiency anemia D50.9
[2021-10-25] MEDS: TRAMadol 50 mg Tablet PO (10:34)
--- NOTE | 2021-10-25 12:29 | P.CONIM_ITS ---
Providers/Reason For Consult Consulting Physician/Specialty*: Dr. Jim Menon, DO/General surgery Reason for Consult*: Anemia, rule out GI bleed Attending Physician: Mynor May MD History of Present Illness History of Present Illness Sander Garay is a 60 year old male who is currently in the hospital for infected hardware from a right knee replacement. He had a right knee replacement back in fall and has been fighting an infection in the joint since. While in the hospital he has become progressively anemic and required transfusion. He denies any nausea, emesis, abdominal pain, diarrhea, constipation, hematochezia and/or melena. General surgery was consulted to rule out GI bleed. Review of Systems General: Reports: 10 or more systems reviewed and unremarkable except in HPI and below Medications/Allergies Home Medications Medication Instructions Recorded Confirmed Last Taken Type aspirin 81 mg tablet,delayed 81 mg PO DAILY 12/19/19 10/24/21 10/09/21 History release (Adult Low Dose Aspirin) albuterol sulfate 90 mcg/actuation 2 puff inhalation QID PRN 07/01/20 10/24/21 01/07/21 Rx aerosol inhaler shortness of breath or wheezing #8.5 grams tramadol 50 mg tablet 50 mg PO Q6H PRN pain #30 tabs 10/13/20 10/24/21 10/17/21 Rx metoprolol tartrate 25 mg tablet 12.5 mg PO BID #90 tabs 12/15/20 10/24/21 10/16/21 Rx clopidogrel 75 mg tablet (Plavix) 75 mg PO DAILY #90 tabs 07/03/21 10/24/21 10/15/21 Rx losartan 100 mg tablet 150 mg PO DAILY #135 tabs 07/20/21 10/24/21 10/16/21 Rx isosorbide mononitrate 30 mg 15 mg PO BID #90 tabs 07/31/21 10/24/21 10/16/21 Rx tablet,extended release 24 hr acetaminophen 500 mg tablet 1,000 mg PO Q8H 14 days #84 tabs 10/22/21 10/24/21 Unknown Rx celecoxib 200 mg capsule 200 mg PO Q12H 14 days #28 caps 10/22/21 10/24/21 Unknown Rx oxycodone 5 mg tablet 10 mg PO Q4H PRN Severe Pain 7 10/22/21 10/24/21 Unknown Rx days #40 tabs finasteride 5 mg tablet 5 mg PO BEDTIME 10/24/21 10/24/21 Unknown History Allergies Allergy/AdvReac Type Severity Reaction Status Date / Time doxycycline Allergy ADR-Itching Verified 10/21/21 11:40 Current Medications Generic Name Dose Route Start Last Admin Trade Name Freq PRN Reason Stop Dose Admin Aspirin 81 mg 10/24/21 09:00 10/25/21 08:54 Aspirin 81 Mg Ec Tablet PO 81 mg DAILY MIKE Administration Vancomycin/PEG/[place]/Lysine/Water 1,500 mg in 300 mls @ 200 mls/hr 10/24/21 07:30 10/25/21 04:25 Vancocin IV Infused Q18H MIKE Infusion Isosorbide Mononitrate 15 mg 10/24/21 09:00 10/25/21 08:53 Isosorbide Mononitrate Er 30 Mg Tablet PO 15 mg BID MIKE Administration Losartan Potassium 150 mg 10/24/21 09:00 10/25/21 08:54 Losartan 50 Mg Tablet PO 150 mg DAILY MIKE Administration Metoprolol Tartrate 12.5 mg 10/24/21 09:00 10/25/21 08:53 Metoprolol Tartrate 25 Mg Tablet PO 12.5 mg BID MIKE Administration Oxycodone HCl 10 mg 10/24/21 07:05 10/25/21 00:04 Oxycodone 5 Mg Ir Tab/Cap PO 10 mg Q4H PRN Administration Severe Pain Pantoprazole Sodium 40 mg 10/24/21 08:15 10/25/21 08:55 Pantoprazole 40 Mg Sdv IVP 40 mg Q12H MIKE Administration Sucralfate 1 gm 10/24/21 11:00 10/25/21 12:17 Sucralfate 1 Gm Tablet PO 1 gm AC&BEDTIME IMKE Administration Tramadol HCl 50 mg 10/24/21 07:05 10/25/21 10:34 Tramadol 50 Mg Tablet PO 50 mg Q6H PRN Administration pain PFSH Acute PFSH: Medical History CAD (coronary artery disease) History of 2019 novel coronavirus disease (COVID-19) HTN (hypertension) Hyperlipidemia Iron deficiency anemia Lower extremity edema Surgical History H/O knee surgery S/P tonsillectomy and adenoidectomy Family History Mother CAD (coronary artery disease) Hypertension Father Cancer Hypertension Social History Smoking and tobacco status: never smoked Alcohol intake: never Vitals/I&O/Wt Last Vital Signs Temp 98 F 10/25/21 11:20 Pulse 69 10/25/21 11:20 Resp 20 H 10/25/21 11:20 BP 135/83 10/25/21 11:20 Pulse Ox 96 10/25/21 11:20 O2 Del Method 10/25/21 08:43 10/24/21 10/25/21 10/25/21 22:59 06:59 14:59 Intake Total 1000 / 1300 1964 / 3264 350 / 350 Output Total 200 / 850 1200 / 2050 200 / 200 Balance 800 / 450 764 / 1214 150 / 150 Weight last 48 hrs Weight 210 lb 9.6 oz Weight 214 lb Physical Exam Narrative: General : Patient is well developed , no acute distress, oriented x3 Head : Normal cephalic, a-traumatic. Ears : Pinnae and external canal are normal. Hearing is normal. Eyes : PERRLA, Sclera and injection are normal. No conjunctival discharge. Nose : Mucous membranes are without erythema. Throat : buccal mucosa is normal, gums are without significant recession or hypertrophy. Lungs : Equal chest rise bilaterally, no use of accessory muscles, trachea is midline. Cor : Rate and rhythm are normal. Abdomen : Soft, ND, NT, no g/r/m Back : non-tender to palpation, no CVA tenderness. Neuro : CN II - XII intact, Upper and lower extremities have equal and full strength Data : 10/25/21 04:20 10/25/21 04:20 A&P Assessment and plan (1) Anemia: Status: Acute Plan N.p.o. after midnight EGD tomorrow The risks and benefits of the procedure, including bleeding, infection, intestinal perforation requiring surgery, missed lesion, or explained to the patient. He is understanding of the risks and wishes to proceed. Coding Level of Care Code Acute Guest Service Manager for g Fwd Diagnoses Anemia D64.9
--- NOTE | 2021-10-25 12:55 | PC.NURSE ---
1 unit of blood transfused pt VS monitored prior, during and after blood transfusion. pt does not have any reactions noted. pt tolerated the transfusion well.
--- NOTE | 2021-10-25 13:42 | P.PN_ITS ---
Subjective Subjective: Patient was seen this morning, no fevers, no chills, no nausea, no vomiting, no bloody or black stools, I discussed his hemoglobin this morning remains 7.3, he remains anemic, evidence of iron deficiency anemia given his recent angiogram, right now would be the optimal time to perform EGD to find the source of his anemia could be multifactorial, but as he is getting on aspirin and Plavix indefinitely, he is certainly at high risk of bleeding, and we need a good answer, discussed risks and benefits of EGD, he voiced understanding all questions answered, general surgery consulted he currently denies any bloody or black stools, no hematemesis Vitals/I&O/Wt Last Vital Signs Temp 98 F 10/25/21 11:20 Pulse 69 10/25/21 11:20 Resp 20 H 10/25/21 12:55 BP 125/74 10/25/21 12:55 Pulse Ox 96 10/25/21 12:55 O2 Del Method 10/25/21 08:43 10/24/21 10/25/21 10/25/21 22:59 06:59 14:59 Intake Total 1000 / 1300 1964 / 3264 700 / 700 Output Total 200 / 850 1200 / 2050 500 / 500 Balance 800 / 450 764 / 1214 200 / 200 Weight last 48 hrs Weight 95.527 kg Weight 97.069 kg Physical Exam Const: COMMON NORMALS: no acute distress and patient oriented x3 Resp: COMMON NORMALS: normal respiratory effort, No retractions, No use of accessory muscles and clear to auscultation bilaterally AUSCULTATION: clear to auscultation bilaterally Cardio: COMMON NORMALS: regular rate, regular rhythm, S1 normal heart sound present and S2 normal heart sound present RATE: regular rate RHYTHM: regular rhythm HEART SOUNDS: S1 normal heart sound present and S2 normal heart sound present GI: COMMON NORMALS: Normal to inspection, nondistended, normoactive bowel sounds present, non-tender and no masses Extremity: COMMON NORMALS: no pedal edema NARRATIVE EXTREMITY EXAM: Right knee, surgical site, wrapped in bandage, dry Neuro: COMMON NORMALS: patient oriented x3 Psych: COMMON NORMALS: mental status grossly normal Data : 10/25/21 04:20 10/25/21 04:20 A&P Assessment and plan (1) Non-ST elevation [place] (NSTEMI): Admit to CSU EKG today without acute ST-T wave changes. Baseline troponin 07/27/2006, 2-hour at 348, delta troponin of 133. Together with symptoms of chest pain concerning for NSTEMI. Aspirin 81 mg Plavix has been discontinued Monitor hemoglobin Venous ultrasound negative for DVT Echocardiogram Normal left ventricular size.? Moderate hypokinesis of the ?inferior base and mid inferior wall suggesting coronary artery ?disease.? Ejection fraction 45%.? Grade 1 diastolic dysfunction. Underwent coronary angiography ?1. Chronic total occlusion of the right coronary artery at the end of existing stents.? Mild left ventricular dysfunction. Recommendations ? * Medical treatment.? Plavix may be discontinued.? Upcoming planned orthopedic surgery may take place without other testing. 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 10/19, currently with cement spacers continue iv vancomycin, patient is to complete 6 weeks of iv abx Status: Acute (3) Anemia: - Has acute on chronic anemia -Possible slow GI bleed -Hemoglobin 6.5, received 1 unit PRBC, hemoglobin 7.3 -Will receive another unit PRBC given given his cardiovascular status as above -Has evidence of iron deficiency anemia, iron 24, ferritin elevated 760 without acute phase reactant -I discussed with him in detail that he is going to be on some sort of anticoagulation or antiplatelet therapy given his cardiovascular status, and his prolonged immobility, and his infection of total right knee replacement -And as he is going to have planned future surgical invention, chronic antibiotic therapy, potentially further hospitalizations we really need a good answer in terms of his etiology with behind his anemia -Certainly could be multifactorial from bone marrow suppression from the infection, some degree of CKD, aspirin and Plavix, -However we need to appropriate evaluate him for a slow GI bleed, as this affects his morbidity and mortality, and any future planned procedures -As he is here in the hospital, and we have good answer to his cardiovascular status, I think it be prudent to do the EGD before he left the hospital -I feel if you do not have a good answer for him before he left the hospital with his recurrent hospitalizations there is always been a question about the etiology behind his anemia, -He voiced understanding, all questions answered, agreed to proceed -I have discussed with Dr. Menon plan on doing EGD hopefully tomorrow morning -Protonix, Carafate, monitor hemoglobin -We will give 1 unit PRBC, 1 unit Venofer here Status: Acute (4) Iron deficiency anemia: Status: Acute Attestations Medical Necessity Statement*: Patient requires hospitalization for acute on chronic anemia, GI bleed, NSTEMI Coding Level of Care Code Acute Director Of Radiology for [facility] Fwd Diagnoses Non-ST elevation [place] (NSTEMI) I21.4 Infection of total right knee replacement T84.53XA Anemia D64.9 Iron deficiency anemia D50.9
[2021-10-25] MEDS: vancomycin 1,500 MG/300 ML PIGGYBACK 200 MG IV (20:14)
[2021-10-26] VITALS (9 sets, daily range): BP systolic 124–177; BP diastolic 76–102; PULSE 68–79; RESP 17–25; TEMP 36.8–36.9; O2SAT 94–98
[2021-10-26 04:22] LABS: Basophils # 0.1 10^3/uL (0.0-0.1); Basophils % 1.2 %; Eosinophils # 0.3 10^3/uL (0.0-0.8); Eosinophils % 3.2 %; Hematocrit 30.7 % (42.0-52.0); Hemoglobin 8.7 g/dL (11.7-16.6); Lymphocytes # 1.6 10^3/uL (0.8-4.8); Lymphocytes % 14.6 %; Mean Corpuscular HGB Conc 28.3 g/dL (30.0-36.0); Mean Corpuscular Hemoglobin 25.8 pg (28.0-34.0); Mean Corpuscular Volume 91.1 fl (80-94); Monocytes # 1.3 10^3/uL (0.2-0.9); Monocytes % 11.8 %; Neutrophils # 6.89 10^3/uL (1.8-7.7); Neutrophils % 64.8 %; Nucleated Red Blood Cells % 0 %; Platelet Count 446 10^3/cmm (130-400); Red Blood Count 3.37 10^6/uL (4.1-5.3); Red Cell Distribution Width 15.9 % (12.1-15.1); White Blood Count 10.6 10^3/uL (4.0-10.0)
[2021-10-26 04:52] LABS: Slide Review Slide Review Perform
[2021-10-26 05:03] LABS: NT Pro B Type Natriuretic Pept 361 pg/mL (0-125); Procalcitonin 0.32 ng/mL (0-0.5)
[2021-10-26 05:14] LABS: Alanine Aminotransferase 21 U/L (0-41); Albumin Level 2.8 g/dL (3.5-5.2); Alkaline Phosphatase 119 IU/L (40-130); Anion Gap 15.3 (5-19); Aspartate Amino Transferase 20 U/L (0-40); Blood Urea Nitrogen 15 mg/dL (8-23); C Reactive Protein 47.9 mg/L (0.0-4.9); Calcium 9.8 mg/dL (8.5-10.5); Carbon Dioxide 20 mmol/L (22-29); Chloride 105 mmol/L (98-107); Globulin 3.6 g/dL (1.3-4.6); Glomerular Filtration Rate 76.2 mL/min (90-130); Glucose 87 mg/dL (65-115); Magnesium 1.8 mg/dL (1.7-2.3); Osmolality Calculated 282 mOsm/kg (285-295); Phosphorus 3.2 mg/dL (2.5-4.5); Potassium 4.3 mmol/L (3.5-5.1); Sodium 136 mmol/L (136-145); Total Bilirubin 0.3 mg/dL (0.15-1.2); Total Protein 6.4 g/dL (6.6-8.7)
[2021-10-26 07:23] LABS: Glucose Point of Care 103 mg/dL (70-110)
--- NOTE | 2021-10-26 07:37 | ANES.PREANE2 ---
Pre-Anesthetic Assessment Height/Weight: Height 1.73 m Weight 95.527 kg Temp Pulse Resp BP Pulse Ox O2 Del Method 98.2 F 68 18 124/76 94 10/26/21 04:00 10/26/21 06:00 10/26/21 04:00 10/26/21 04:00 10/26/21 04:00 10/25/21 23:40 Preop Diagnosis: Infected right total knee Operation Date: 10/24/21 09:00 Proposed Procedures p Cardiac Catheterization(Not Applicable) - Burt Ayala MD Operation Date: 10/26/21 11:00 Proposed Procedures p EGD(Not Applicable) - Jim Menon DO Familial anesthetic complications: none Was Beta Rosetta taken within 24 hours: Yes Was Clonidine taken within 24 hours: N/A Last intake: Intake Last Liquid Date 10/25/21 Last Solid Date 10/25/21 Social No alcohol and No tobacco Exam alert, oriented x 3, clear to auscultation bilaterally and regular rate & rhythm Airway Submandibular: within normal limits Cervical ROM: within normal limits Mallampati: Class II Comments: Comments: Missing teeth Pulmonary None reported CV/HEM Anemia, Coronary Artery Disease and Myocardial Infarction None reported Hepatic None reported GI Gastroesophageal Reflux Disease GI bleed Metabolic None reported Musc/skel Osteoarthritis/DJD s/p joint surgery Neuropsych None reported Anesthetic Plan ASA status: 3 Anesthesia: Anesthesia Evaluation, General and MAC Other: I discussed with the patient risks, goals, and benefits of MAC and general anesthesia. We discussed spectrum of MAC anesthesia including conversion to general as well as possibility of recall of intraoperative stimuli including discomfort/pain. Patient agrees to proceed with MAC. Risk of > 500 ml blood loss (7ml/kg in children): No Medications/Allergies Home Medications Medication Instructions Recorded Confirmed Last Taken Type aspirin 81 mg tablet,delayed 81 mg PO DAILY 12/19/19 10/24/21 10/09/21 History release (Adult Low Dose Aspirin) albuterol sulfate 90 mcg/actuation 2 puff inhalation QID PRN 07/01/20 10/24/21 01/07/21 Rx aerosol inhaler shortness of breath or wheezing #8.5 grams tramadol 50 mg tablet 50 mg PO Q6H PRN pain #30 tabs 10/13/20 10/24/21 10/17/21 Rx metoprolol tartrate 25 mg tablet 12.5 mg PO BID #90 tabs 12/15/20 10/24/21 10/16/21 Rx clopidogrel 75 mg tablet (Plavix) 75 mg PO DAILY #90 tabs 07/03/21 10/24/21 10/15/21 Rx losartan 100 mg tablet 150 mg PO DAILY #135 tabs 07/20/21 10/24/21 10/16/21 Rx isosorbide mononitrate 30 mg 15 mg PO BID #90 tabs 07/31/21 10/24/21 10/16/21 Rx tablet,extended release 24 hr acetaminophen 500 mg tablet 1,000 mg PO Q8H 14 days #84 tabs 10/22/21 10/24/21 Unknown Rx celecoxib 200 mg capsule 200 mg PO Q12H 14 days #28 caps 10/22/21 10/24/21 Unknown Rx oxycodone 5 mg tablet 10 mg PO Q4H PRN Severe Pain 7 10/22/21 10/24/21 Unknown Rx days #40 tabs finasteride 5 mg tablet 5 mg PO BEDTIME 10/24/21 10/24/21 Unknown History Allergies Allergy/AdvReac Type Severity Reaction Status Date / Time doxycycline Allergy ADR-Itching Verified 10/21/21 11:40 Current Medications Generic Name Dose Route Start Last Admin Trade Name Freq PRN Reason Stop Dose Admin Aspirin 81 mg 10/24/21 09:00 10/25/21 08:54 Aspirin 81 Mg Ec Tablet PO 81 mg DAILY MIKE Administration Vancomycin/PEG/[place]/Lysine/Water 1,500 mg in 300 mls @ 200 mls/hr 10/24/21 07:30 10/25/21 22:05 Vancocin IV Infused Q18H MIKE Infusion Isosorbide Mononitrate 15 mg 10/24/21 09:00 10/25/21 17:21 Isosorbide Mononitrate Er 30 Mg Tablet PO 15 mg BID MIKE Administration Losartan Potassium 150 mg 10/24/21 09:00 10/25/21 08:54 Losartan 50 Mg Tablet PO 150 mg DAILY MIKE Administration Metoprolol Tartrate 12.5 mg 10/24/21 09:00 10/25/21 17:21 Metoprolol Tartrate 25 Mg Tablet PO 12.5 mg BID MIKE Administration Oxycodone HCl 10 mg 10/24/21 07:05 10/25/21 22:54 Oxycodone 5 Mg Ir Tab/Cap PO 10 mg Q4H PRN Administration Severe Pain Pantoprazole Sodium 40 mg 10/24/21 08:15 10/25/21 20:13 Pantoprazole 40 Mg Sdv IVP 40 mg Q12H MIKE Administration Sucralfate 1 gm 10/24/21 11:00 10/26/21 06:25 Sucralfate 1 Gm Tablet PO Not Given AC&BEDTIME MIKE Tramadol HCl 50 mg 10/24/21 07:05 10/25/21 10:34 Tramadol 50 Mg Tablet PO 50 mg Q6H PRN Administration pain PFSH Anesthesia Medical History CAD (coronary artery disease) History of 2019 novel coronavirus disease (COVID-19) HTN (hypertension) Hyperlipidemia Iron deficiency anemia Lower extremity edema Surgical History H/O knee surgery S/P tonsillectomy and adenoidectomy Family History Mother CAD (coronary artery disease) Hypertension Father Cancer Hypertension Social History Smoking and tobacco status: never smoked Alcohol intake: never Data Anesthesia : 10/26/21 03:55 10/26/21 03:55 Short CBC 10/24/21 10/25/21 10/26/21 Range/Units 16:10 04:20 03:55 WBC 9.9 10.6 H (4.0-10.0) 10^3/uL Hgb 6.5 L* 7.3 L 8.7 L (11.7-16.6) g/dL Hct 21.9 L 25.0 L 30.7 L (42.0-52.0) % MCV 85.9 91.1 D (80-94) fl Plt Count 363 446 H (130-400) 10^3/cmm Neut % (Auto) 64.9 64.8 % Neut # (Auto) 6.45 6.89 (1.8-7.7) 10^3/uL BMP 10/25/21 10/26/21 04:20 03:55 Sodium 137 136 Potassium 4.1 4.3 Chloride 106 105 Carbon Dioxide 21 L 20 L BUN 15 15 Creatinine 1.1 1.0 Glucose 119 H 87 Calcium 9.6 9.8 Cardiac Enzymes 10/25/21 10/25/21 10/26/21 Range/Units 04:20 04:20 03:55 NT-Pro-B Natriuret Pep 668 H Cancelled 361 H (0-125) pg/mL Liver Function 10/25/21 10/26/21 Range/Units 04:20 03:55 Total Bilirubin 0.3 0.3 (0.15-1.2) mg/dL AST 23 20 (0-40) U/L ALT 19 21 (0-41) U/L Alkaline Phosphatase 109 119 (40-130) IU/L Albumin 2.9 L 2.8 L (3.5-5.2) g/dL Blood Bank 10/24/21 18:33 Blood Type O Positive Rho(D) Type Positive Antibody Screen Negative Coags 10/24/21 10/24/21 10/24/21 02:55 02:55 14:05 ESR 39 H PT INR APTT 41.1 H C-Reactive Protein 63.7 H 10/24/21 10/25/21 10/26/21 18:33 04:20 03:55 ESR PT 15.30 H INR 1.18 APTT C-Reactive Protein 72.6 H 47.9 H Cardiac Studies: Echocardiogram 10/24/21
[2021-10-26] MEDS: pantoprazole 40 mg SDV IVP (07:53)
--- NOTE | 2021-10-26 08:24 | P.PN_ITS ---
Subjective Subjective: [place] feels a little better today. He has now had a total of 2 units packed red blood cells and some intravenous iron. His hemoglobin is 8.7 this morning. No further chest pain. Vitals/I&O/Wt Last Vital Signs Temp 98.4 F 10/26/21 08:00 Pulse 76 10/26/21 08:00 Resp 25 H 10/26/21 08:00 BP 135/81 10/26/21 08:00 Pulse Ox 95 10/26/21 08:00 O2 Del Method 10/26/21 08:00 10/25/21 10/26/21 10/26/21 22:59 06:59 14:59 Intake Total 300 / 1000 Output Total 625 / 1125 450 / 1575 Balance -325 / -125 -450 / -575 Physical Exam Narrative: GENERAL: Generally looks and feels well HEENT: Exam within normal limits. NECK: Supple without jugular vein distention. The carotid upstroke is normal without bruits. BACK: Exam normal. LUNGS: Clear. HEART: Regular rate and rhythm. ABDOMEN: Benign without organomegaly or tenderness. EXTREMITIES: No edema. NEUROLOGIC: Exam normal. SKIN: Unremarkable. Data : 10/26/21 03:55 10/26/21 03:55 A&P Assessment and plan (1) Iron deficiency anemia: Status: Acute (2) Non-ST elevation [place] (NSTEMI): Status: Acute (3) Infection of total right knee replacement: Status: Acute (4) HTN (hypertension): Status: Acute Qualifiers: Hypertension type: essential hypertension Qualified Code(s): I10 - Essential (primary) hypertension (5) CAD (coronary artery disease): Status: Acute Qualifiers: Coronary Disease-Associated Artery/Lesion type: [place] artery [place] vs. transplanted heart: [place] heart Associated angina: without angina Qualified Code(s): I25.10 - Atherosclerotic heart disease of [place] coronary artery without angina pectoris Plan Now looking back on this it is much more likely his angina and troponin elevation was related to the anemia rather than a new coronary artery lesion. The right coronary artery closure is chronic and has not likely occurred recently. This occurred within the previously placed stents. Therefore, the Plavix can be discontinued. He can go home on aspirin alone. He may be discharged from a cardiac standpoint at any time. Orthopedic surgery can proceed as scheduled. He should be scheduled with our nurse practitioner in approximately a week to 10 days for check of his right radial artery and right groin. Other than discontinuing the Plavix, no other medication changes need to be made from a cardiac standpoint. Attestations Medical Necessity Statement*: Management of troponin elevation and anemia. 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 transplanted heart: [place] heart Associated angina: without angina
--- NOTE | 2021-10-26 09:57 | PC.NURSE ---
Patient off floor in GI lab for procedure.
[2021-10-26] MEDS: sodium chloride 0.9% 1,000 ML 30 ML IV (09:59)
--- NOTE | 2021-10-26 10:33 | W.PM.OPSUD ---
Surgery/Procedure H&P Update DATE OF PROCEDURE: October 26, 2021 DATE H&P PERFORMED: 10/25/21 CHANGES TO PREVIOUS DOCUMENTATION: NONE PREOP DIAGNOSIS: Infected right total knee PLANNED PROCEDURE: Operation Date: 10/24/21 09:00 Proposed Procedures p Cardiac Catheterization(Not Applicable) - Burt Ayala MD Operation Date: 10/26/21 11:00 Proposed Procedures p EGD(Not Applicable) - Jim Menon DO
[2021-10-26] MEDS: isosorbide mononitrate ER 30 mg Tablet 15 MG PO (11:43)
[2021-10-26] MEDS: metoprolol tartrate 25 mg Tablet 12.5 MG PO (11:44)
[2021-10-26] MEDS: losartan 50 mg Tablet 150 MG PO (11:44)
[2021-10-26] MEDS: aspirin 81 mg EC Tablet PO (11:45)
--- NOTE | 2021-10-26 12:04 | PM.DCS ---
Discharge Providers Date of Admission: 10/24/21 03:44 Date of Discharge: October 26, 2021 Attending Provider at Admission: Amy Robertson MD Attending Provider at Discharge: Mino Timmons Diagnoses at Discharge Discharge Diagnosis (1) Iron deficiency anemia: Status: Acute (2) Non-ST elevation CT (NSTEMI): Status: Acute (3) Infection of total right knee replacement: Status: Acute (4) HTN (hypertension): Status: Acute Qualifiers: Hypertension type: essential hypertension Qualified Code(s): I10 - Essential (primary) hypertension (5) CAD (coronary artery disease): Status: Acute Qualifiers: Coronary Disease-Associated Artery/Lesion type: kiana artery [place] Ira vs. 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 Anemia is normocytic, although with some evidence of iron deficiency. 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 Anemia thought to be the more likely culprit of his symptoms. With cardiology recommendation Plavix is discontinued. He continues on aspirin. He underwent additional assessment with EGD today which showed gastritis, no active bleeding. He is asked to stop celecoxib and avoid NSAIDs. Plavix is stopped. He is for now started on 6-week course of PPI. Please follow-up and continue assessment and management of anemia, including evaluation for other causes contributing to normocytic anemia. He is otherwise doing much better, feels comfortable returning home. He will follow-up in cardiology office in 7-10 days. He will continue IV vancomycin and keep follow-up as instructed during prior discharge including with orthopedics. Physical Exam Const: COMMON NORMALS: patient oriented x3 and alert GENERAL APPEARANCE: cooperative ORIENTATION/CONSCIOUSNESS: Yes awake HENMT: COMMON NORMALS: oropharynx normal Neck/C-Spine: COMMON NORMALS: no JVD Resp: COMMON NORMALS: normal respiratory effort and clear to auscultation bilaterally AUSCULTATION: clear to auscultation bilaterally Cardio: COMMON NORMALS: no JVD, regular rhythm, S1 normal heart sound present, S2 normal heart sound present and No murmurs present (Cardio) RHYTHM: regular rhythm HEART SOUNDS: S1 normal heart sound present and S2 normal heart sound present GI: COMMON NORMALS: Normal to inspection, nondistended, normoactive bowel sounds present, Soft to palpation and non-tender PALPATION: Yes Soft to palpation Extremity: COMMON NORMALS: no joint enlargement and no pedal edema OTHER: R knee dressing and brace. Perfused lower extremities. No ankle swelling. 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 echo complete* [id number] Routine Ultrasound 10/24/21 07:06 Completed Pending at discharge Category Date Time Status C Reactive Protein AM LABS Lab 10/27/21 04:00 Ordered Complete Blood Count w/Auto AM LABS Lab 10/27/21 04:00 Ordered Complete Blood Count w/Auto AM LABS Lab 10/28/21 04:00 Ordered Comprehensive Metabolic Panel AM LABS Lab 10/27/21 04:00 Ordered Comprehensive Metabolic Panel AM LABS Lab 10/28/21 04:00 Ordered Magnesium AM LABS Lab 10/27/21 04:00 Ordered NT Pro B Type Natriuretic Pept QAM Lab 10/27/21 06:00 Ordered Occult Blood Stool [Immunochemical Fecal OCB] Routine Lab 10/24/21 08:02 Uncollected Phosphorus AM LABS Lab 10/27/21 04:00 Ordered Procalcitonin AM LABS Lab 10/27/21 04:00 Ordered Vancomycin Trough Timed Lab 10/26/21 12:30 Ordered Pathology: Surgical [PTH] Routine Pth 10/26/21 10:50 Ordered Radiology Impressions Chest X-Ray 10/24/21 02:49 IMPRESSION: 1. PICC line placed via the right upper extremity with its tip at the level of the superior vena cava. 2. Interstitial opacity seen in the lung bases bilaterally, left prominent than right may represent atelectasis although bilateral basilar interstitial pneumonia cannot be excluded in the appropriate clinical setting. Venous Duplex 10/24/21 08:04 IMPRESSION: No evidence of deep vein thrombosis. Laboratory Results WBC 10.6 10^3/uL (4.0-10.0) H 10/26/21 03:55 RBC 3.37 10^6/uL (4.1-5.3) L 10/26/21 03:55 Hgb 8.7 g/dL (11.7-16.6) L 10/26/21 03:55 Hct 30.7 % (42.0-52.0) L 10/26/21 03:55 MCV 91.1 fl (80-94) D 10/26/21 03:55 MCH 25.8 pg (28.0-34.0) L 10/26/21 03:55 MCHC 28.3 g/dL (30.0-36.0) L 10/26/21 03:55 RDW 15.9 % (12.1-15.1) H 10/26/21 03:55 Plt Count 446 10^3/cmm (130-400) H 10/26/21 03:55 MPV 9.0 fL (7.4-10.4) 10/26/21 03:55 Neut % (Auto) 64.8 % 10/26/21 03:55 Lymph % (Auto) 14.6 % 10/26/21 03:55 [place] % (Auto) 11.8 % 10/26/21 03:55 Eos % (Auto) 3.2 % 10/26/21 03:55 Baso % (Auto) 1.2 % 10/26/21 03:55 Reticulocyte % (Auto) 3.2 % (0.5-2.0) H 10/24/21 02:55 Neut # (Auto) 6.89 10^3/uL (1.8-7.7) 10/26/21 03:55 Lymph # (Auto) 1.6 10^3/uL (0.8-4.8) 10/26/21 03:55 [place] # (Auto) 1.3 10^3/uL (0.2-0.9) H 10/26/21 03:55 Eos # (Auto) 0.3 10^3/uL (0.0-0.8) 10/26/21 03:55 Baso # (Auto) 0.1 10^3/uL (0.0-0.1) 10/26/21 03:55 Nucleated RBC % (auto) 0 % 10/26/21 03:55 Nucleated RBCs # 0.0 /100WBC 10/26/21 03:55 ESR 39 mm/hr (0-10) H 10/24/21 02:55 PT 15.30 SECONDS (12.1-14.9) H 10/24/21 18:33 INR 1.18 (0.8-1.2) 10/24/21 18:33 APTT 41.1 SECONDS (23.9-36.7) H 10/24/21 14:05 D-Dimer 6.36 ug/mIFEU (0-0.59) H 10/24/21 02:55 Sodium 136 mmol/L (136-145) 10/26/21 03:55 Potassium 4.3 mmol/L (3.5-5.1) 10/26/21 03:55 Chloride 105 mmol/L (98-107) 10/26/21 03:55 Carbon Dioxide 20 mmol/L (22-29) L 10/26/21 03:55 Anion Gap 15.3 (5-19) 10/26/21 03:55 BUN 15 mg/dL (8-23) 10/26/21 03:55 Creatinine 1.0 mg/dL (0.7-1.2) 10/26/21 03:55 GFR Calculation 76.2 mL/min (90-130) L 10/26/21 03:55 Glucose 87 mg/dL (65-115) 10/26/21 03:55 POC Glucose 103 mg/dL (70-110) 10/26/21 06:30 Calculated Osmolality 282 mOsm/kg (285-295) L 10/26/21 03:55 Calcium 9.8 mg/dL (8.5-10.5) 10/26/21 03:55 Phosphorus 3.2 mg/dL (2.5-4.5) 10/26/21 03:55 Magnesium 1.8 mg/dL (1.7-2.3) 10/26/21 03:55 Iron 24 ug/dL (59-158) L 10/24/21 02:55 Ferritin 760 ng/mL (30-400) H 10/24/21 02:55 Total Bilirubin 0.3 mg/dL (0.15-1.2) 10/26/21 03:55 AST 20 U/L (0-40) 10/26/21 03:55 ALT 21 U/L (0-41) 10/26/21 03:55 Alkaline Phosphatase 119 IU/L (40-130) 10/26/21 03:55 Troponin T Baseline 207 ng/L (0-15) H* 10/24/21 02:55 Troponin T 120 Minute 340.5 ng/L (0-15) H 10/24/21 04:50 Delta Troponin T 133.5 ABS# (0-10) H* 10/24/21 04:50 C-Reactive Protein 47.9 mg/L (0.0-4.9) H 10/26/21 03:55 NT-Pro-B Natriuret Pep 361 pg/mL (0-125) H 10/26/21 03:55 Total Protein 6.4 g/dL (6.6-8.7) L 10/26/21 03:55 Albumin 2.8 g/dL (3.5-5.2) L 10/26/21 03:55 Globulin 3.6 g/dL (1.3-4.6) 10/26/21 03:55 Procalcitonin 0.32 ng/mL (0-0.5) 10/26/21 03:55 Blood Type O Positive 10/24/21 18:33 Rho(D) Type Positive 10/24/21 18:33 Antibody Screen Negative 10/24/21 18:33 Crossmatch See Detail 10/24/21 18:33 Vitals Last Vital Signs Temp 98.3 F 10/26/21 09:44 Pulse 79 10/26/21 09:44 Resp 18 10/26/21 09:44 BP 135/82 10/26/21 11:44 Pulse Ox 97 10/26/21 09:44 O2 Del Method 10/26/21 09:44 Discharge Plan Discharge Patient Disposition: Home Condition: Stable Prescriptions: New pantoprazole 40 mg tablet,delayed release (DR/EC) 40 mg PO BID 42 Days Qty: 84 0RF Continued tramadol 50 mg tablet 50 mg PO Q6H PRN (Reason: pain) Qty: 30 0RF aspirin [Adult Low Dose Aspirin] 81 mg tablet,delayed release (DR/EC) 81 mg PO DAILY albuterol sulfate 90 mcg/actuation HFA aerosol inhaler 2 puff inhalation QID PRN (Reason: shortness of breath or wheezing) Qty: 8.5 0RF metoprolol tartrate 25 mg tablet 12.5 mg PO BID Qty: 90 3RF losartan 100 mg tablet 150 mg PO DAILY Qty: 135 3RF isosorbide mononitrate 30 mg tablet extended release 24 hr 15 mg PO BID Qty: 90 3RF acetaminophen 500 mg Tablet 1,000 mg PO Q8H 14 Days Qty: 84 0RF oxycodone 5 mg Tablet 10 mg PO Q4H PRN (Reason: Severe Pain) 7 Days Qty: 40 0RF finasteride 5 mg Tablet 5 mg PO BEDTIME Discontinued Plavix 75 mg tablet 75 mg PO DAILY Qty: 90 2RF celecoxib 200 mg Capsule 200 mg PO Q12H 14 Days Qty: 28 0RF Discharge Orders: Discharge Order (Routine); Ordered 10/26/21 Ordered By: Mino Timmons Referrals: Kacey Bautista [Referring] - 4-7 days Dian Dawn FNP [Nurse Practitioner] - 7-10 days (Post cath) Discharge Diet: Advance as tolerated and GI Soft Discharge Activity: Increase activity as tolerated Patient Instructions: Anemia (GEN), GI Discharge Instructions, Opioid Safety Activity Restrictions/Additional Instructions: Please follow-up with your primary doctor for additional assessment and management of anemia. Noted gastritis on EGD. Please discontinue celecoxib, please avoid NSAIDs. You are started on PPI. Continue aspirin. Stop Plavix. If you are having dark stools this should resolve, in case they are not resolving, or are worsening, or you notice farzaneh blood in your stool, seek medical attention immediately. Please note that anemia is normocytic and may have other causes. Please discuss with your primary doctor. As per prior hospitalization and discharge, please continue IV antibiotics for right knee infection and keep follow-up with primary provider and orthopedics. Discharge Attestations Time Spent in Discharge Care*: greater than 30 min Quality Metrics Clinical Quality Measures [ No reported AMI, CVA or VTE this stay] Coding Level of Care Code Acute Chg FW DC note Diagnoses Iron deficiency anemia D50.9 Non-ST elevation CT (NSTEMI) I21.4 Infection of total right knee replacement T84.53XA HTN (hypertension) I10 Hypertension type: essential hypertension CAD (coronary artery disease) I25.10 Coronary Disease-Associated Artery/Lesion type: kiana artery [place] Ira vs. transplanted heart: kiana heart Associated angina: without angina
--- NOTE | 2021-10-26 12:35 | ANE.PACU2 ---
Inpatient post-anesthesia follow up: Airway intact: Yes Vital signs: Temperature 98.4 F Pulse Rate 74 Respiratory Rate 17 Blood Pressure 135/82 Pulse Oximetry 97 Oxygen Delivery Me thod Room Air Oxygen Flow Rate Fraction of Inspir ed Oxygen Hydration adequate: Yes Nausea and vomiting: No Pain level: 1 Mental status: Baseline
[2021-10-26 13:23] LABS: Vancomycin Trough 15.6 ug/mL (10-15)
--- NOTE | 2021-10-26 14:36 | PC.NURSE ---
Discharge Note Patient discharged to home via wheelchair accompanied by spouse. Discharge instructions reviewed with patient and/or outbound call center representative. Mobile pharmacy medications and/or prescriptions provided. Belongings/home medications returned.
== END 2021-10-26 14:37 | disposition home health service (06) | DRG 812 ==
LOC: ER 03:44 → MEDSURG 04:06
PROVIDERS: Family Medicine; Internal Medicine Cardiovascular Disease; Surgery; Admitting Provider Student in an Organized Health Care Education/Training Program; Emergency Provider Emergency Medicine; Visit Provider Internal Medicine
PROC: B211YZZ Fluoroscopy of Multiple Coronary Arteries using Other Contrast (ICD-10-PCS; principal; 2021-10-24 09:00)
PROC: 0DJ08ZZ Inspection of Upper Intestinal Tract, Via Natural or Artificial Opening Endoscopic (ICD-10-PCS; CPT 43235; principal; 2021-10-26 11:00)
DX: D50.9 Iron deficiency anemia, unspecified (principal); T84.53XA Infection and inflammatory reaction due to internal right knee prosthesis, initial encounter; I25.10 Atherosclerotic heart disease of native coronary artery without angina pectoris; I25.82 Chronic total occlusion of coronary artery; I10 Essential (primary) hypertension; K29.70 Gastritis, unspecified, without bleeding; R79.1 Abnormal coagulation profile; E78.5 Hyperlipidemia, unspecified; Z79.02 Long term (current) use of antithrombotics/antiplatelets; Z79.82 Long term (current) use of aspirin; Z86.16 Personal history of COVID-19; Z98.890 Other specified postprocedural states; Z95.5 Presence of coronary angioplasty implant and graft; Z79.2 Long term (current) use of antibiotics
CPT/HCPCS: 36415; 36416; 36430; 43239; 71045; 80053; 80202; 82728; 82962; 83540; 83735; 83880; 84100; 84145; 84484; 85014; 85018; 85025; 85045; 85378; 85610; 85651; 85730; 86140; 86850; 86900; 86920; 86927; 88305; 93005; 93306; 93452; 93458; 93970; 96360; 99152; 99153; C1769; C1887; C1894; C9113; J1644; J1756; J2250; J2704; J3010; J3370; J3490; J7030; P9016; P9017; Q0163; Q9967

== ENCOUNTER → 2021-10-27 10:11 | Outpatient (BNVA) | payer OTHER, SELFPAY | PROVIDERS: Visit Provider Nurse Practitioner Family | DX: T84.53XA Infection and inflammatory reaction due to internal right knee prosthesis, initial encounter (principal); Z98.890 Other specified postprocedural states | CPT/HCPCS: 36415; 85651 ==

== ENCOUNTER → 2021-11-03 13:14 | Outpatient (BNVA) | payer OTHER, SELFPAY | PROVIDERS: Visit Provider Nurse Practitioner Family | DX: Z98.890 Other specified postprocedural states (principal); T81.40XA Infection following a procedure, unspecified, initial encounter | CPT/HCPCS: 36415; 86140 ==

== ENCOUNTER 2021-11-20 09:35 | Outpatient (RCR) | payer OTHER, SELFPAY ==
[2021-10-30 09:50] LABS: Basophils # 0.1 10^3/uL (0.0-0.1); Basophils % 0.9 %; Eosinophils # 0.5 10^3/uL (0.0-0.8); Eosinophils % 5.6 %; Hemoglobin 9.1 g/dL (11.7-16.6); Lymphocytes # 1.4 10^3/uL (0.8-4.8); Lymphocytes % 16.3 %; Mean Corpuscular HGB Conc 29.4 g/dL (30.0-36.0); Mean Corpuscular Hemoglobin 25.6 pg (28.0-34.0); Mean Corpuscular Volume 87.3 fl (80-94); Mean Platelet Volume 9.2 fL (7.4-10.4); Monocytes % 12.1 %; Neutrophils # 5.41 10^3/uL (1.8-7.7); Neutrophils % 63.5 %; Nucleated Red Blood Cells % 0 %; Platelet Count 424 10^3/cmm (130-400); Red Blood Count 3.55 10^6/uL (4.1-5.3); Red Cell Distribution Width 16.2 % (12.1-15.1); White Blood Count 8.5 10^3/uL (4.0-10.0)
[2021-10-30 09:51] LABS: Erythrocyte Sedimentation Rate 47 mm/hr (0-10)
[2021-10-30 10:07] LABS: Alanine Aminotransferase 18 U/L (0-41); Albumin Level 3.3 g/dL (3.5-5.2); Alkaline Phosphatase 143 IU/L (40-130); Aspartate Amino Transferase 19 U/L (0-40); Blood Urea Nitrogen 15 mg/dL (8-23); C Reactive Protein 49.7 mg/L (0.0-4.9); Calcium 10.2 mg/dL (8.5-10.5); Carbon Dioxide 23 mmol/L (22-29); Chloride 104 mmol/L (98-107); Globulin 3.7 g/dL (1.3-4.6); Glomerular Filtration Rate 51.7 mL/min (90-130); Glucose 95 mg/dL (65-115); Osmolality Calculated 283 mOsm/kg (285-295); Sodium 136 mmol/L (136-145); Total Bilirubin 0.3 mg/dL (0.15-1.2)
[2021-10-30 10:08] LABS: Anion Gap 12.9 (5-19); Potassium 3.9 mmol/L (3.5-5.1); Vancomycin Trough 19.3 ug/mL (10-15)
[2021-11-02 10:24] LABS: Basophils # 0.1 10^3/uL (0.0-0.1); Basophils % 1.2 %; Eosinophils # 0.4 10^3/uL (0.0-0.8); Eosinophils % 6.3 %; Hematocrit 28.7 % (42.0-52.0); Hemoglobin 8.9 g/dL (11.7-16.6); Lymphocytes # 1.3 10^3/uL (0.8-4.8); Lymphocytes % 19.2 %; Mean Corpuscular Hemoglobin 25.7 pg (28.0-34.0); Mean Corpuscular Volume 82.9 fl (80-94); Mean Platelet Volume 9.4 fL (7.4-10.4); Monocytes # 0.7 10^3/uL (0.2-0.9); Monocytes % 10.1 %; Neutrophils # 4.14 10^3/uL (1.8-7.7); Neutrophils % 61.6 %; Nucleated Red Blood Cells % 0 %; Platelet Count 338 10^3/cmm (130-400); Red Blood Count 3.46 10^6/uL (4.1-5.3); Red Cell Distribution Width 16.3 % (12.1-15.1); White Blood Count 6.7 10^3/uL (4.0-10.0)
[2021-11-02 10:51] LABS: Erythrocyte Sedimentation Rate 47 mm/hr (0-10)
[2021-11-02 10:52] LABS: Alanine Aminotransferase 15 U/L (0-41); Albumin Level 3.5 g/dL (3.5-5.2); Alkaline Phosphatase 161 IU/L (40-130); Anion Gap 13.2 (5-19); Aspartate Amino Transferase 18 U/L (0-40); Blood Urea Nitrogen 18 mg/dL (8-23); C Reactive Protein 25.6 mg/L (0.0-4.9); Calcium 10.4 mg/dL (8.5-10.5); Carbon Dioxide 24 mmol/L (22-29); Chloride 103 mmol/L (98-107); Globulin 3.7 g/dL (1.3-4.6); Glomerular Filtration Rate 61.8 mL/min (90-130); Glucose 96 mg/dL (65-115); Osmolality Calculated 284 mOsm/kg (285-295); Potassium 4.2 mmol/L (3.5-5.1); Sodium 136 mmol/L (136-145); Total Bilirubin 0.3 mg/dL (0.15-1.2); Total Protein 7.2 g/dL (6.6-8.7); Vancomycin Trough 14.9 ug/mL (10-15)
[2021-11-05 10:32] LABS: Vancomycin Trough 16.3 ug/mL (10-15)
[2021-11-09 10:25] LABS: Basophils # 0.1 10^3/uL (0.0-0.1); Basophils % 2.2 %; Eosinophils # 0.2 10^3/uL (0.0-0.8); Eosinophils % 3.9 %; Hematocrit 37.5 % (42.0-52.0); Hemoglobin 11.3 g/dL (11.7-16.6); Lymphocytes # 1.2 10^3/uL (0.8-4.8); Lymphocytes % 22.4 %; Mean Corpuscular HGB Conc 30.1 g/dL (30.0-36.0); Mean Corpuscular Hemoglobin 26.3 pg (28.0-34.0); Mean Corpuscular Volume 87.4 fl (80-94); Monocytes # 0.6 10^3/uL (0.2-0.9); Monocytes % 10.3 %; Neutrophils # 3.25 10^3/uL (1.8-7.7); Neutrophils % 59.5 %; Nucleated Red Blood Cells % 0 %; Platelet Count 104 10^3/cmm (130-400); Red Blood Count 4.29 10^6/uL (4.1-5.3); White Blood Count 5.5 10^3/uL (4.0-10.0)
[2021-11-09 10:29] LABS: Erythrocyte Sedimentation Rate 32 mm/hr (0-10)
[2021-11-09 10:55] LABS: Alanine Aminotransferase 30 U/L (0-41); Albumin Level 3.8 g/dL (3.5-5.2); Alkaline Phosphatase 168 U/L (40-130); Anion Gap 17.2 (5-19); Aspartate Amino Transferase 27 U/L (0-40); Blood Urea Nitrogen 15 mg/dL (8-23); Calcium 10.6 mg/dL (8.5-10.5); Carbon Dioxide 22 mmol/L (22-29); Chloride 104 mmol/L (98-107); Globulin 3.6 g/dL (1.3-4.6); Glomerular Filtration Rate 68.3 mL/min (90-130); Glucose 88 mg/dL (65-115); Osmolality Calculated 288 mOsm/kg (285-295); Potassium 4.2 mmol/L (3.5-5.1); Sodium 139 mmol/L (136-145); Total Bilirubin 0.3 mg/dL (0.15-1.2); Total Protein 7.4 g/dL (6.6-8.7)
[2021-11-16 12:30] LABS: Basophils # 0.1 10^3/uL (0.0-0.1); Basophils % 1.5 %; Eosinophils # 0.4 10^3/uL (0.0-0.8); Eosinophils % 6.1 %; Hematocrit 35.4 % (42.0-52.0); Hemoglobin 10.6 g/dL (11.7-16.6); Lymphocytes # 1.5 10^3/uL (0.8-4.8); Lymphocytes % 22.3 %; Mean Corpuscular HGB Conc 29.9 g/dL (30.0-36.0); Mean Corpuscular Hemoglobin 27.2 pg (28.0-34.0); Mean Corpuscular Volume 90.8 fl (80-94); Mean Platelet Volume 11.6 fL (7.4-10.4); Monocytes # 0.8 10^3/uL (0.2-0.9); Monocytes % 12.3 %; Neutrophils # 3.75 10^3/uL (1.8-7.7); Nucleated Red Blood Cells % 0 %; Platelet Count 195 10^3/cmm (130-400); Red Cell Distribution Width 17.4 % (12.1-15.1); White Blood Count 6.6 10^3/uL (4.0-10.0)
[2021-11-16 12:37] LABS: Erythrocyte Sedimentation Rate 25 mm/hr (0-10)
[2021-11-16 13:01] LABS: Alanine Aminotransferase 18 U/L (0-41); Albumin Level 3.9 g/dL (3.5-5.2); Alkaline Phosphatase 154 U/L (40-130); Anion Gap 13.1 (5-19); Aspartate Amino Transferase 18 U/L (0-40); Blood Urea Nitrogen 18 mg/dL (8-23); C Reactive Protein 7.3 mg/L (0.0-4.9); Calcium 10.5 mg/dL (8.5-10.5); Carbon Dioxide 25 mmol/L (22-29); Chloride 104 mmol/L (98-107); Globulin 3.3 g/dL (1.3-4.6); Glomerular Filtration Rate 56.3 mL/min (90-130); Glucose 84 mg/dL (65-115); Osmolality Calculated 287 mOsm/kg (285-295); Potassium 4.1 mmol/L (3.5-5.1); Sodium 138 mmol/L (136-145); Total Bilirubin 0.4 mg/dL (0.15-1.2); Total Protein 7.2 g/dL (6.6-8.7)
[2021-11-17 10:45] LABS: Vancomycin Trough 28.4 ug/mL (10-15)
[2021-11-17 14:32] LABS: C Reactive Protein 6.6 mg/L (0.0-4.9)
[2021-11-20 10:34] LABS: Glomerular Filtration Rate 68.3 mL/min (90-130); Vancomycin Trough 5.4 ug/mL (10-15)
== END 2021-11-25 23:59 | disposition home or self-care (01) ==
LOC: LAB 09:35
PROVIDERS: Nurse Practitioner Family; Visit Provider Student in an Organized Health Care Education/Training Program
DX: T84.53XA Infection and inflammatory reaction due to internal right knee prosthesis, initial encounter (principal); B95.7 Other staphylococcus as the cause of diseases classified elsewhere; Y83.8 Other surgical procedures as the cause of abnormal reaction of the patient, or of later complication, without mention of misadventure at the time of the procedure
CPT/HCPCS: 36415; 80053; 80202; 82565; 85025; 85651; 86140

== ENCOUNTER 2021-11-23 15:46 | Inpatient (IN) | payer OTHER, SELFPAY ==
[2021-11-12 08:30] VITALS: BMI 32.5
--- NOTE | 2021-11-12 08:49 | ANES.PREANE2 ---
Pre-Anesthetic Assessment Height/Weight: Height 1.73 m Weight 97.069 kg Preop Diagnosis: Infected right total knee Operation Date: 11/23/21 09:40 Proposed Procedures p Total Knee Arthroplasty Revision 89809,T84.53XA(Right) - Fly Cline MD Familial anesthetic complications: None Social No alcohol and No tobacco Exam alert, oriented x 3, clear to auscultation bilaterally and regular rate & rhythm Airway Mallampati: Class III Dentition: false Pulmonary None reported CV/HEM Anemia, Coronary Artery Disease, Hypertension and Myocardial Infarction (stents > 1 year ago) None reported Hepatic None reported GI Gastroesophageal Reflux Disease Metabolic None reported Musc/skel None reported Neuropsych None reported Anesthetic Plan ASA status: 3 Anesthesia: Choice and Regional (specify below) (popliteal) Risk of > 500 ml blood loss (7ml/kg in children): Yes, adequate IV access and fluids planned Medications/Allergies Home Medications Medication Instructions Recorded Confirmed Last Taken Type aspirin 81 mg tablet,delayed 81 mg PO DAILY 12/19/19 11/12/21 10/09/21 History release (Adult Low Dose Aspirin) albuterol sulfate 90 mcg/actuation 2 puff inhalation QID PRN 07/01/20 11/12/21 01/07/21 Rx aerosol inhaler shortness of breath or wheezing #8.5 grams tramadol 50 mg tablet 50 mg PO Q6H PRN pain #30 tabs 10/13/20 11/12/21 10/17/21 Rx metoprolol tartrate 25 mg tablet 12.5 mg PO BID #90 tabs 12/15/20 11/12/21 10/16/21 Rx losartan 100 mg tablet 150 mg PO DAILY #135 tabs 07/20/21 11/12/21 10/16/21 Rx isosorbide mononitrate 30 mg 15 mg PO BID #90 tabs 07/31/21 11/12/21 10/16/21 Rx tablet,extended release 24 hr finasteride 5 mg tablet 5 mg PO BEDTIME 10/24/21 11/12/21 Unknown History pantoprazole 40 mg tablet,delayed 40 mg PO BID 6 weeks #84 tabs 10/26/21 11/12/21 Unknown Rx release Wheelchair #1 ea 10/30/21 11/10/21 Unknown Rx Allergies Allergy/AdvReac Type Severity Reaction Status Date / Time doxycycline Allergy ADR-Itching Verified 11/12/21 08:26 [facility] Anesthesia Medical History CAD (coronary artery disease) History of 2019 novel coronavirus disease (COVID-19) HTN (hypertension) Hyperlipidemia Iron deficiency anemia Lower extremity edema Surgical History H/O knee surgery S/P tonsillectomy and adenoidectomy Family History Mother CAD (coronary artery disease) Hypertension Father Cancer Hypertension Social History Smoking and tobacco status: never smoked Alcohol intake: never Data Anesthesia Cardiac Studies: Echocardiogram 10/24/21
[2021-11-12 10:27] LABS: Vancomycin Trough 13.9 ug/mL (10-15)
[2021-11-12 11:11] LABS: Glomerular Filtration Rate 56.3 mL/min (90-130)
[2021-11-12 11:17] LABS: Creatinine Clr Calc Pharmacy 68.2629
[2021-11-23] VITALS (14 sets, daily range): BP systolic 105–167; BP diastolic 64–107; PULSE 66–89; RESP 11–20; TEMP 36.3–36.9; O2SAT 91–97
[2021-11-23] MEDS: sodium chloride 0.9% 1,000 ML 30 ML IV (07:19)
[2021-11-23] MEDS: gabapentin 300 mg Capsule PO ×2 (07:20→17:17)
[2021-11-23] MEDS: oxyCODONE 20 mg ER (12 HR) Tablet PO (07:20)
[2021-11-23] MEDS: CELEcoxib 200 mg Capsule 400 MG PO (07:21)
[2021-11-23] MEDS: acetaminophen 500 mg Tablet 1000 MG PO ×2 (07:22→17:16)
[2021-11-23 09:22] LABS: Vancomycin Random 17.7 ug/mL (20.0-40.0)
--- NOTE | 2021-11-23 10:03 | P.ANESUD_ITS ---
Pre-Anesthetic Update Pre-Anesthetic Assessment: Date of Surgery/Procedure: 11/23/21 Preop Brandy gnosis: Status post removal infected right total knee Proposed Procedure: Operation Date: 11/23/21 09:40 Proposed Procedures p Total Knee Arthroplasty Revision 40415,T84.53XA(Right) - Fly Cline MD Any changes to Pre-Anesthetic Assessment?: No Last Intake: Intake Last Liquid Date 11/22/21 Last Liquid Time 22:30 Last Solid Date 11/22/21 Last Solid Time 22:30 Vitals: Temperature 98.5 F 11/23/21 06:59 Temperature Source Temporal Artery S can 11/23/21 06:59 Pulse Rate 80 11/23/21 06:59 Respiratory Rate 17 11/23/21 06:59 Blood Pressure 167/107 11/23/21 06:59 Blood Pressure Chey n 127 11/23/21 06:59 Pulse Oximetry 97 11/23/21 06:59 Oxygen Delivery Me thod 11/23/21 07:03 Exam: Pre-Anes Outpt Exam: alert, oriented x 3, clear to auscultation bilaterally and regular rate & rhythm Cardiac Studies: Echocardiogram 10/24/21
--- NOTE | 2021-11-23 10:03 | ANES.PROC ---
Anesthesia Procedures Procedure/Date: 11/23/21 Nerve Block ^: Nerve Block 1: Main Anesthesia: spinal anesthesia block Time Out Performed: Yes Consent: requested by attending/covering physician, from patient, risks and benefits reviewed and patient agrees to proceed Nerve block location: adductor canal Anesthesia monitors applied: pulse oximetry, EKG, BP cuff and oxygen Nerve block position: supine Anesthetic Used: ropivicaine 0.5% (30 ml) and with decadron (4 mg) Ultrasound used to: recognize landmarks and visualize and ID femerol nerve Nerve Stimulator Used?: Yes Interscalene/Femoral BLK: 4 stimuplex 21 g needle used for position and inplane approach, visualize local anesthetic spread and no vascular puncture identified Injection: neg aspiration of heme Patient Tolerated Procedure: well and no complications Complications: none
--- NOTE | 2021-11-23 11:06 | PM.OP ---
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 3) size universal tibial baseplate 4) 15 mm diameter 25 mm tibial femoral stem hospitality internship 5) 16mm size 5 total stabilized tibial insert 6) size A tibial symmetric cone augment 7) size 1 and 2 right central femoral cone IV 8) 4 bags [place] quickset cement with 8 additional gram of tobramycin 9) medial and lateral tibial augment half blocks 10) size 5, 5 mm femoral posterior augments times 2 and femoral distal augments x2 Specimens removed/disposition: 3 sets of routine and anaerobic cultures were sent (2 involved flopped swabs of synovial fluid and 1 involved synovium itself) Pathology: none sent Surgeon: Fly Cline Anesthesia: Nerve Block (Spinal, abductor canal block) Estimated blood loss (mL): 700 Complications: None Findings: There is no clinically obvious infection or necrotic tissue noted. There is of bone loss over the distal and posterior femur and irregularity and collapse of the proximal tibia with a small area about more significant cavitary bone loss posterior and laterally. Condition: stable Disposition: PACU Procedure: The patient was taken to the operating room. Patient was given 1 g of tranexamic acid. The above anesthesia provided by the anesthesia service. He was given 2 g of Ancef preoperatively initially and 1 g of vancomycin as he entered the OR suite. A timeout was performed. The patient was prepped and draped in the usual fashion with the lower extremity exposed. A anterior incision was made, midline, from a point proximal to the patella to the distal tibial tubercle along the previous scar.. The knee was entered through a medial parapatellar approach. Slightly more aggressive release of the collateral ligament off the medial tibia was accomplished for better access. Scar tissue was removed from behind the patellar tendon to allow better mobilization of the patella. Femoral bone blocks were easily removed, 3 sets of cultures were obtained. The tourniquet was then inflated to 325mmHg and the knee flexed. Initial attention was focused on the tibia. Sequential reaming of the tibial canal was accomplished up to 15 mm. The intramedullary guides were used to remove approximately 2 mm of proximal medial tibia. This resulted in resection of more anterior lateral bone leaving a small less than 5 mm deep cavitary defect posteriorly and laterally. The size 3 tibial baseplate was chosen as that was the previous baseplate present. He was positioned on the tibia and the tibia prepared for the final stem. The tibial cone reamer was used to create a isometric central cone removing areas violated with the previous stem creating a healthy bed of trabecular bone for ingrowth. A size 1 2 code augment was chosen. Next the femoral canal was sequentially reamed to a size 15. Intramedullary cutting guides were placed to remove just a thin sliver of irregular distal bone. There was felt to be some shortening with respect to the epicondylar access and the 5 in 1 cutting block was placed with 5 mm distal blocks and the rotation verified using visible previous cuts for rotational alignment and comparing this to the epicondylar axis. 5 mm additional bone was taken posteriorly to accommodate posterior bone loss. A symmetric femoral cone was prepared for the distal femur. Trial reduction with the above components provided satisfactory stability with a 16mm total stabilized insert. The tourniquet was deflated at 52 minutes as implants were prepared on the back table. Tourniquet was then reinflated for final preparation of bone surfaces and cementing components Cones were placed in the tibia and the femur. The canals were cleaned with pulsatile lavage and dried with lap sponges. Initially the tibial component was cemented into place. 4 g of tobramycin were added to 2 bag of tobramycin antibiotic cement. Cement restrictor was placed and the cement injected into the tibia the final components with stems were placed. Next cement restrictor's were placed in the femur and a similarly the same cement injected into the femur and the femoral component cemented into place. The final tibial insert was placed. The knee was brought through a range of motion. Scar was removed lateral to the patella essentially producing a slight lateral release. Patellar tracking was found to be adequate. The extensor retinaculum was closed with a running 1 Stratafix.. The subcutaneous tissues were closed with 2-0 Vicryl and the skin was closed with a running 4-0 Stratafix. The wound was covered with a Dermabond Prinio dressing. It was covered with 4xrs and a compressive Tubigauae was applied. The patient was taken to recovery room in stable condition.
--- NOTE | 2021-11-23 11:13 | P.HP_ITS ---
Same Day Surgery H&P Indication for Procedure/HPI DATE OF PROCEDURE: November 23, 2021 CHIEF COMPLAINT/INDICATIONFOR SURGICAL PROCEDURE: Infected right total knee arthroplasty PREOP DIAGNOSIS: Status post removal infected right total knee PLANNED PROCEDURE: Operation Date: 11/23/21 09:40 Proposed Procedures p Total Knee Arthroplasty Revision [id number],T84.53XA(Right) - Fly Cline MD Established 60 year old male here for post operative follow up of right total knee replacement DOS: 12/22/20. Postoperatively he was slow to heal his distal wound. I&D of right knee 02/03/21 with unremarkable cultures at that time however he began developing increased swelling and drainage with the aspirate on 02/25/2021 revealing Staphylococcus epidermidis. He was treated with oral tetracycline and was actually doing very well however became intolerant of the medication ultimately stopping it. He developed recurrent swelling in the knee. Aspirated on 10/19/2021 again revealed the Staphylococcus epidermidis organism. He was taken to the operating room on 10/19/2021 where he underwent removal of his total knee components. He has been managed with now 5 weeks of IV vancomycin. The patient was under extreme financial hardship and he has been counseled that the longer we can wait for final implantation of components the better. He is elected to proceed at this time. He has had good clinical improvement with the C-reactive protein decreasing from 77.1 on 10/21/2021 to 5.0 On 11/09/2021. Medications/Allergies* Home Medications Medication Instructions Recorded Confirmed Type aspirin 81 mg tablet,delayed 81 mg PO DAILY 12/19/19 11/23/21 History release (Adult Low Dose Aspirin) finasteride 5 mg tablet 5 mg PO BEDTIME 10/24/21 11/23/21 History Allergies/Adverse Reactions Allergy/AdvReac Type Severity Reaction Status Date / Time doxycycline Allergy ADR-Itching Verified 11/23/21 07:00 Current Medications: Generic Name Dose Route Start Last Admin Trade Name Freq PRN Reason Stop Dose Admin Sodium Chloride 1,000 mls @ 30 mls/hr 11/23/21 07:00 11/23/21 07:19 Sodium Chloride 0.9% IV 11/24/21 06:59 30 mls/hr .Q24H MIKE Administration Pertinent History/Comorbid Conditions* Medical History (Updated 10/29/21 @ 12:07 by Fly Cline MD) CAD (coronary artery disease) History of 2019 novel coronavirus disease (COVID-19) HTN (hypertension) Hyperlipidemia Iron deficiency anemia Lower extremity edema Surgical History (Updated 10/27/21 @ 09:52 by DONNIE Reece) H/O knee surgery S/P tonsillectomy and adenoidectomy Family History (Updated 12/19/19 @ 11:36 by Priti Tolbert RN) CAD (coronary artery disease) Mother Cancer Father Hypertension Mother Father Social History Smoking and tobacco status: never smoked Alcohol intake: never Pertinent Exam Findings alert, oriented x 3, clear to auscultation bilaterally, regular rate & rhythm and operative site marked Mr. Garay right knee incision is well healed. There is expected swelling but no erythema or other skin changes are noted. No distal neurovascular deficits are noted. Recommendations Surgery/Procedure today Other Plans: Proceed with removal antibiotic spacers and implantation of components. He grew a staph epidermidis species and vancomycin will be added to cement. In addition to our cefazolin for preoperative prophylaxis I will give an additional gram of vancomycin preoperatively. Deep cultures will be sent as well. Understand the magnitude of the procedure. He understands risk of recurrent infection and the possible need for further procedures. We will proceed today as scheduled. 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
[2021-11-23] MEDS: vancomycin 1,000 MG in sodium chloride 0.9% 250 ML 250 MG IV (11:48)
[2021-11-23] MEDS: ceFAZolin 2,000 MG in sodium chloride 0.9% (plus) 50 ML 100 MG IV (11:48)
[2021-11-23] MEDS: vancomycin 1,000 MG SDV 1000 MG XX (13:23)
[2021-11-23] MEDS: vancomycin 1,000 MG SDV 8000 MG XX (13:23)
[2021-11-23] MEDS: tranexamic acid 1,000 mg/10mL SDV 1000 MG IV (13:24)
[2021-11-23] MEDS: tobramycin 40 mg/mL SDV 2mL 160 MG XX (13:24)
[2021-11-23] MEDS: EPINEPHrine 1 mg/mL INJ XX (13:25)
[2021-11-23] MEDS: sodium chloride 0.9% 100 mL Bag XX (13:25)
[2021-11-23] MEDS: ketorolac 30 mg/mL INJ XX (13:25)
[2021-11-23] MEDS: tranexamic acid 1,000 mg/10mL SDV 1000 MG XX (13:26)
--- NOTE | 2021-11-23 15:17 | XR_ITS ---
WS: [id number] Exam: XR knee RT 1-2V [id number] Date/Time of Exam: 11/23/2021 3:21 PM Reason For Exam: Right Total Knee revision arthroplasty Comparison 10/07/2021. There has been revision of previously noted right total knee replacement. The components appear to be in satisfactory position. Postoperative changes in the adjacent soft tissues. XR/XR knee RT 1-2V [id number] IMPRESSION: 1. Right total knee revision in satisfactory position.
--- NOTE | 2021-11-23 15:18 | SUR.PHASEI ---
1513 SCD to left leg on and working
[2021-11-23] MEDS: sodium chloride 0.9% 1,000 ML 100 ML IV (17:11)
[2021-11-23] MEDS: pantoprazole DR 40 mg Tablet PO (17:17)
[2021-11-23] MEDS: metoprolol tartrate 25 mg Tablet 12.5 MG PO (17:17)
[2021-11-23] MEDS: CELEcoxib 200 mg Capsule PO (17:17)
[2021-11-23] MEDS: isosorbide mononitrate ER 30 mg Tablet 15 MG PO (17:17)
--- NOTE | 2021-11-23 18:55 | PM.CONSULT ---
Providers/Reason For Consult Consulting Physician/Specialty*: Amy Robertson MD/Infectious Disease Reason for Consult*: PJI Requesting Physician: Fly Cline MD Attending Physician: Fly Cline MD History of Present Illness History of Present Illness Sander Garay is a 60 year old male known to me from ID clinic, has been followed for PJI of right total knee Dos: 11/2020. Status post removal of all components on 10/19/2021, currently with antibiotic impregnated cement blocks in place. Cultures from the OR and outpatient had all grown staph epidermidis. He is completing 5 weeks of iv vancomycin as outpatient via PICC line. CRP? 1.7 (02/15)--> 42.7 (03/17)--> 64 (10/16)---> 6.6 (11/17) ---> 15.3 (11/24). ESR 39 (10/24) --> 47 (10/30) --> 3 (11/24) He was recommended to keep treatment with at least 6-8 weeks of IV vancomycin prior to definitive replacement, however he has been having financial difficulties and eager to return to work, therefore preferred to get a two-stage exchange at the 5 week ghanshyam. He is admitted today for Revision right total knee arthroplasty and had both tibial and femoral metal components replaced. He has tolerated the procedure well. Vancomycin trough today at 17, within range. Trough has been adequately maintained as outpatient. On 10.26.21, he was admitted with an NSTEMI Underwent coronary angiogram which showed [employer] SUPER[employer] RCA with collaterals.? Anemia (Hb~6) thought to be the more likely culprit of his symptoms. His antiplatelets have been adjusted thereafter. GI scope revealed gastritis. Review of Systems General: Reports: 10 or more systems reviewed and unremarkable except in HPI and below Const: Denies: fever(s), chills or body aches Eyes: Denies: change in vision, blurry vision or photophobia ENMT: Reports: hoarseness; Denies: throat pain, enlarged tonsils, odynophagia or nasal congestion Card: Denies: chest pain, palpitations, irregular heart rhythm, edema, swelling of feet/ankles, lightheadedness, pre-syncope, dyspnea on exertion or orthopnea Resp: Denies: dyspnea, productive cough, non-productive cough, wheezing, stridor, pain on inspiration, change in phlegm color, hemoptysis or chest congestion GI: Denies: abdominal pain, nausea, vomiting, hematemesis, coffee ground emesis, dysphagia, heartburn, diarrhea, constipation, GI cramping, change in stool character, hematochezia or melena : Denies: flank pain, dysuria, urinary frequency, urinary urgency, urinary hesitancy or hematuria Musc: Denies: neck pain, back pain, extremity pain, joint swelling, joint warmth or deformity Neuro: Denies: headache(s), numbness in extremities, weakness in extremities, sensory changes, difficulty walking, frequent falls, dizziness, vertigo, behavioral changes, Slurred speech present or seizure-like activity Psych: Denies: anxiety, depression, suicidal ideation or homicidal ideation Endo: Denies: polyuria, polydipsia, tired all the time, cold intolerance or hot flashes Alec/Lymph: Denies: easy bruising or easy bleeding Medications/Allergies Home Medications Medication Instructions Recorded Confirmed Last Taken Type aspirin 81 mg tablet,delayed 81 mg PO DAILY 12/19/19 11/23/21 11/20/21 08:00 History release (Adult Low Dose Aspirin) albuterol sulfate 90 mcg/actuation 2 puff inhalation QID PRN 07/01/20 11/17/21 01/07/21 Rx aerosol inhaler shortness of breath or wheezing #8.5 grams tramadol 50 mg tablet 50 mg PO Q6H PRN pain #30 tabs 10/13/20 11/23/21 11/21/21 Rx metoprolol tartrate 25 mg tablet 12.5 mg PO BID #90 tabs 12/15/20 11/23/21 11/23/21 05:00 Rx losartan 100 mg tablet 150 mg PO DAILY #135 tabs 07/20/21 11/23/21 11/22/21 07:00 Rx isosorbide mononitrate 30 mg 15 mg PO BID #90 tabs 07/31/21 11/23/21 11/22/21 07:00 Rx tablet,extended release 24 hr finasteride 5 mg tablet 5 mg PO BEDTIME 10/24/21 11/23/21 11/20/21 22:00 History pantoprazole 40 mg tablet,delayed 40 mg PO BID 6 weeks #84 tabs 10/26/21 11/23/21 11/22/21 Rx release Wheelchair #1 ea 10/30/21 11/17/21 Unknown Rx acetaminophen 500 mg tablet 1,000 mg PO Q8H 14 days #84 tabs 11/24/21 Unknown Rx celecoxib 200 mg capsule 200 mg PO Q12H 14 days #28 caps 11/24/21 Unknown Rx gabapentin 300 mg capsule 300 mg PO BID 7 days #14 caps 11/24/21 Unknown Rx oxycodone 5 mg tablet 5 mg PO Q4H PRN Moderate Pain 7 11/24/21 Unknown Rx days #40 tabs rifampin 300 mg capsule 300 mg PO BID 14 days #28 caps 11/24/21 Unknown Rx Allergies Allergy/AdvReac Type Severity Reaction Status Date / Time doxycycline Allergy ADR-Itching Verified 11/23/21 07:00 Current Medications Generic Name Dose Route Start Last Admin Trade Name Freq PRN Reason Stop Dose Admin Acetaminophen 1,000 mg 11/23/21 16:10 11/23/21 17:16 Acetaminophen 500 Mg Tablet PO 1,000 mg Q8H MIKE Administration Celecoxib 200 mg 11/23/21 16:10 11/23/21 17:17 Celecoxib 200 Mg Capsule PO 200 mg Q12H MIKE Administration Gabapentin 300 mg 11/23/21 18:00 11/23/21 17:17 Gabapentin 300 Mg Capsule PO 300 mg BID MIKE Administration Sodium Chloride 1,000 mls @ 100 mls/hr 11/23/21 16:10 11/23/21 17:11 Sodium Chloride 0.9% IV 100 mls/hr .Q10H MIKE Administration Isosorbide Mononitrate 15 mg 11/23/21 18:00 11/23/21 17:17 Isosorbide Mononitrate Er 30 Mg Tablet PO 15 mg BID MIKE Administration Metoprolol Tartrate 12.5 mg 11/23/21 18:00 11/23/21 17:17 Metoprolol Tartrate 25 Mg Tablet PO 12.5 mg BID MIKE Administration Pantoprazole Sodium 40 mg 11/23/21 18:00 11/23/21 17:[address] 40 Mg Tablet PO 40 mg BID MIKE Administration PFSH Acute PFSH: Medical History CAD (coronary artery disease) History of 2019 novel coronavirus disease (COVID-19) HTN (hypertension) Hyperlipidemia Iron deficiency anemia Lower extremity edema Surgical History H/O knee surgery S/P tonsillectomy and adenoidectomy Family History Mother CAD (coronary artery disease) Hypertension Father Cancer Hypertension Social History Smoking and tobacco status: never smoked Alcohol intake: never Vitals/I&O/Wt Last Vital Signs Temp 97.8 F 11/23/21 16:10 Pulse 89 11/23/21 17:47 Resp 18 11/23/21 17:47 BP 122/69 11/23/21 16:10 Pulse Ox 97 11/23/21 17:47 O2 Del Method 11/23/21 17:47 O2 Flow Rate 6 11/23/21 15:10 11/23/21 11/23/21 11/23/21 06:59 14:59 22:59 Intake Total 1300 / 1300 790 / 2090 Output Total 650 / 650 Balance 1300 / 1300 140 / 1440 Physical Exam Narrative: Patient unable to be seen as he is in the OR at time of rounds. Attmpted to be seen twice. Urinary Catheter Management: Stephenson: Cath Placed During This Visit: yes Reason for Continuing Indwelling Catheter: Perioperative Use in Selected Surgeries Urinary Catheter Date of Insertion: 11/23/21 Urinary Catheter Time of Insertion: 12:10 Data : 11/24/21 02:54 11/12/21 09:03 A&P Assessment and plan (1) Infection of total right knee replacement: right total knee Dos: 11/2020. status post removal of all components on 10/19/2021, with placement of antibiotic impregnated cement blocks. Cultures from the OR showed staph epidermidis. He is s/p 6 weeks of IV vancomycin for treatment of prosthetic joint infection.? Admitted now for two-stage exchange with definitive exchange; patient elected to proceed with surgery at 5 weeks instead of recommended interval of at least 6-8 weeks due to financial hardships and need to return to work. ESR has normalized during course of treatment, CRP downtrending significantly as noted above. OR surgical bed cx taken today, awaited, Recommend to continue iv vancomycin for now while pending OR cx. Add rifampin 300mg BID. 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
[2021-11-23] MEDS: oxyCODONE 5 mg IR Tab/Cap PO (20:45)
[2021-11-23] MEDS: finasteride 5 mg Tablet PO (20:45)
[2021-11-24] VITALS (9 sets, daily range): BP systolic 120–150; BP diastolic 70–75; PULSE 66–72; RESP 16–18; TEMP 36.4–36.7; O2SAT 92–99
[2021-11-24] MEDS: acetaminophen 500 mg Tablet 1000 MG PO ×2 (00:25→08:12)
[2021-11-24] MEDS: sodium chloride 0.9% 1,000 ML 100 ML IV (02:28)
[2021-11-24 03:08] LABS: Erythrocyte Sedimentation Rate 3 mm/hr (0-10)
[2021-11-24 03:09] LABS: Hemoglobin 8.3 g/dL (11.7-16.6)
[2021-11-24 03:29] LABS: C Reactive Protein 15.3 mg/L (0.0-4.9)
[2021-11-24] MEDS: CELEcoxib 200 mg Capsule PO (03:56)
[2021-11-24] MEDS: vancomycin 1,250 MG/250 ML PIGGYBACK 250 MG IV (05:20)
[2021-11-24] MEDS: oxyCODONE 5 mg IR Tab/Cap PO ×2 (06:23→11:55)
[2021-11-24] MEDS: pantoprazole DR 40 mg Tablet PO (08:12)
[2021-11-24] MEDS: isosorbide mononitrate ER 30 mg Tablet 15 MG PO (08:13)
[2021-11-24] MEDS: aspirin 81 mg EC Tablet PO (08:13)
[2021-11-24] MEDS: metoprolol tartrate 25 mg Tablet 12.5 MG PO (08:13)
[2021-11-24] MEDS: gabapentin 300 mg Capsule PO (08:13)
[2021-11-24] MEDS: losartan 50 mg Tablet 150 MG PO (08:14)
--- NOTE | 2021-11-24 10:15 | P.PN_ITS ---
Subjective Subjective: Pain adequately controlled with oral meds. Up with therapy. No specific complaints. Vitals/I&O/Wt Last Vital Signs Temp 97.9 F 11/24/21 07:54 Pulse 69 11/24/21 08:08 Resp 18 11/24/21 08:08 BP 129/75 11/24/21 08:14 Pulse Ox 99 11/24/21 08:08 O2 Del Method 11/24/21 08:08 O2 Flow Rate 6 11/23/21 15:10 11/23/21 11/24/21 11/24/21 22:59 06:59 14:59 Intake Total 1390 / 2690 1538.333 / 4228.333 240 / 240 Output Total 650 / 650 1100 / 1750 Balance 740 / 2040 438.333 / 2478.333 240 / 240 Physical Exam Narrative: Right knee dressing clean and dry Motion from full extension to 100 degrees flexion Urinary Catheter Management: Stephenson: Cath Placed During This Visit: yes, but has since been removed by the nurse Reason for Continuing Indwelling Catheter: Perioperative Use in Selected Surgeries Urinary Catheter Date of Insertion: 11/23/21 Urinary Catheter Time of Insertion: 12:10 Date Urinary Catheter Removed: 11/24/21 Time Urinary Catheter Discontinued: 05:40 Data : 11/24/21 02:54 11/12/21 09:03 Other Labs: ESR 3, CRP 15.3 Micro: Cultures are too early to read. A&P Assessment and plan (1) Status post revision of total replacement of right knee: Mr. Garay's knee clinically looks free of infection. Certainly I do have some greater concern here. At the time of component removal I feel there was bone compromise and likely some osteomyelitis. Labs today look good. I am e ncouraged by normal sed rate. Certainly a bump in his C-reactive protein would not be atypical immediately after surgery. We should see this lab value rapidly approaching normal. I discussed the case with Dr. Robertson at length. We both agree that continuing IV antibiotics for a few more weeks would be beneficial. He will likely then be converted to a suppressive oral therapy. I will follow- up with him at the end of the week. Dr. Robertson will see him in 2 weeks to discuss discontinuation of his vancomycin. Hopefully his operative cultures will be negative. If not vancomycin may need to be continued longer. [facility] Case discussed with Dr. Kathuria. Mendoza for discharge today. 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
--- NOTE | 2021-11-24 10:34 | P.DS_ITS ---
Discharge Providers Date of Admission: 11/23/21 15:46 Date of Discharge: November 24, 2021 Attending Provider at Admission: Fly Bangura MD Attending Provider at Discharge: Fly Bangura MD Diagnoses at Discharge Discharge Diagnosis (1) Infection of total right knee replacement: Status: Resolved (2) Status post revision of total replacement of right knee: Details from hospital stay: The patient did well after the knee revision. Plans were discussed with Dr. Robertson. he will continue with his IV vancomycin for 2 more weeks. She will make a decision at that time regarding conversion to oral suppression. Status: Acute (3) Anemia: Details from hospital stay: Hemoglobin decreased to 8.3 on postoperative day 1 the patient remained asymptomatic Status: Acute Reason for Visit Reason for Visit: Infection and inflamatory reaction due to internal Hospital Course Hospital Course The patient tolerated surgery well. They remained hemodynamically stable. They was begun on aspirin and sequential compression dressing for DVT prophylaxis. They were continued on vancomycin. The patient was mobilized with therapy beginning the day of surgery and by the first postoperative day independent with the walker. As the pain was adequately controlled and they were fully mobile they were discharged home. Physical Exam Narrative: On the day of discharge the knee incision was clean. They had no drainage. There is minimal swelling in the thigh and knee and the calf. No distal neurovascular deficits were noted Urinary Catheter Management: Stephenson: Cath Placed During This Visit: yes, but has since been removed by the nurse Reason for Continuing Indwelling Catheter: Perioperative Use in Selected Surgeries Urinary Catheter Date of Insertion: 11/23/21 Urinary Catheter Time of Insertion: 12:10 Date Urinary Catheter Removed: 11/24/21 Time Urinary Catheter Discontinued: 05:40 Discharge Data Studies Completed and Pending Completed Studies During Hospitalization Category Date Time Status XR knee RT 1-2V 81952 Routine Exams 11/23/21 15:17 Completed Pending at discharge Category Date Time Status Anaerobic Culture Routine Lab 11/23/21 12:25 Received Anaerobic Culture Routine Lab 11/23/21 12:25 Received Anaerobic Culture Routine Lab 11/23/21 12:25 Received Body Fluid Culture & GS Routine Lab 11/23/21 12:25 Received Body Fluid Culture & GS Routine Lab 11/23/21 12:25 Received Tissue Culture and Gram Stain Routine Lab 11/23/21 12:25 Received Radiology Impressions Knee X-Ray 08/29/22 15:17 IMPRESSION: 1. Right total knee revision in satisfactory position. Laboratory Results Hgb 8.3 g/dL (11.7-16.6) L 11/24/21 02:54 ESR 3 mm/hr (0-10) 11/24/21 02:54 Creatinine 1.3 mg/dL (0.7-1.2) H 11/12/21 09:03 GFR Calculation 56.3 mL/min (90-130) L 11/12/21 09:03 C-Reactive Protein 15.3 mg/L (0.0-4.9) H 11/24/21 02:54 Vancomycin Trough 13.9 ug/mL (10-15) 11/12/21 09:03 Random Vancomycin 17.7 ug/mL (20.0-40.0) L 11/23/21 08:42 Vitals Last Vital Signs Temp 97.9 F 11/24/21 07:54 Pulse 69 11/24/21 08:08 Resp 18 11/24/21 08:08 BP 129/75 11/24/21 08:14 Pulse Ox 99 11/24/21 08:08 O2 Del Method 11/24/21 08:08 O2 Flow Rate 6 11/23/21 15:10 Discharge Plan Discharge Patient Disposition: Home Condition: Stable Prescriptions: New oxycodone 5 mg Tablet 5 mg PO Q4H PRN (Reason: Moderate Pain) 7 Days Qty: 40 0RF acetaminophen 500 mg Tablet 1,000 mg PO Q8H 14 Days Qty: 84 0RF celecoxib 200 mg Capsule 200 mg PO Q12H 14 Days Qty: 28 0RF gabapentin 300 mg Capsule 300 mg PO BID 7 Days Qty: 14 0RF Continued tramadol 50 mg tablet 50 mg PO Q6H PRN (Reason: pain) Qty: 30 0RF aspirin [Adult Low Dose Aspirin] 81 mg tablet,delayed release (DR/EC) 81 mg PO DAILY albuterol sulfate 90 mcg/actuation HFA aerosol inhaler 2 puff inhalation QID PRN (Reason: shortness of breath or wheezing) Qty: 8.5 0RF metoprolol tartrate 25 mg tablet 12.5 mg PO BID Qty: 90 3RF losartan 100 mg tablet 150 mg PO DAILY Qty: 135 3RF isosorbide mononitrate 30 mg tablet extended release 24 hr 15 mg PO BID Qty: 90 3RF (DME) Wheelchair See Rx Instructions .Route .MEDSUPPLY Qty: 1 0RF Rx Instructions: As directed-Length of Need 6 months finasteride 5 mg Tablet 5 mg PO BEDTIME pantoprazole 40 mg tablet,delayed release (DR/EC) 40 mg PO BID 42 Days Qty: 84 0RF Discharge Orders: Discharge Order (Routine); Ordered 11/24/21 Ordered By: Fly Bangura Referrals: Amy Robertson MD [Hospitalist] - 2 weeks Josse Alex FNP [Physician Sales Program Manager] - 11/27/21 9:30 am Discharge Diet: Advance as tolerated Discharge Activity: Limit activity as instructed Patient Instructions: Opioid Safety Activity Restrictions/Additional Instructions: Okay to shower Keep Tubigauze sleeve in place for swelling. Okay to remove for hygiene. Apply FirstIce up to 20 min/hr for pain and swelling Take Celebrex twice a day for the next 15 days for pain , discontinue other anti-inflammatories Take Neurontin twice a day for 7 days. Take Tylenol 500mg (2 tabs) as needed 3 times a day for mild pain take oxycodone for breakthrough pain. Exercises per physical therapy. May weight-bear as tolerated on total knee arthroplasty Vancomycin to be continued under supervison of Dr. Robertson until evaluated by Dr. Robertson in 2 weeks. IF HAVE ANY PROBLEMS OR QUESTIONS CALL [facility] DIFFERENTIAL REPAIRER AT AND ASK TO HAVE DR. BANGURA PAGED. Discharge Attestations Time Spent in Discharge Care*: other Quality Metrics Clinical Quality Measures [ No reported AMI, CVA or VTE this stay] Coding Level of Care Code Acute Chg FW DC note Diagnoses Infection of total right knee replacement T84.53XA Status post revision of total replacement of right knee Z96.651 Anemia D64.9
--- NOTE | 2021-11-24 10:37 | P.PN_ITS ---
Subjective Subjective: Infectious disease progress note Patient feels well post operatively Pain is well controlled Planned to be discharged today Afberile, hemodynamically stable Medications: Reviewed: Yes Vitals/I&O/Wt Last Vital Signs Temp 97.9 F 11/24/21 07:54 Pulse 69 11/24/21 08:08 Resp 18 11/24/21 08:08 BP 129/75 11/24/21 08:14 Pulse Ox 99 11/24/21 08:08 O2 Del Method 11/24/21 08:08 O2 Flow Rate 6 11/23/21 15:10 11/23/21 11/24/21 11/24/21 22:59 06:59 14:59 Intake Total 1390 / 2690 1538.333 / 4228.333 240 / 240 Output Total 650 / 650 1100 / 1750 Balance 740 / 2040 438.333 / 2478.333 240 / 240 Physical Exam Narrative: This is a televisit, spoke to patient over the phone, care plan discussed with patient and orthopedics team. 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 status post removal of all components on 10/19/2021, with placement of antibiotic impregnated cement blocks. Cultures from the OR showed staph epidermidis. He is s/p 6 weeks of IV vancomycin for treatment of prosthetic joint infection.? Admitted now for two-stage exchange with definitive exchange; patient elected to proceed with surgery at 5 weeks instead of recommended interval of at least 6-8 weeks due to financial hardships and need to return to work. ESR has normalized during course of treatment, CRP downtrending significantly OR surgical bed cx thus far negative to date Recommend to continue iv vancomycin for next 2 weeks + Add rifampin 300mg BID. Significant degenerative changes Noted during OR, high risk of treatment failure After 2 weeks will plan to change treatment to FQs for chronic suppression vs FQ+ Rifampin for 6 weeks followed by chronic FQ suppression, however final decision dependent on OR cx and clinical course post discharge. 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
== END 2021-11-24 13:30 | disposition home health service (06) | DRG 468 ==
LOC: MEDSURG 15:46
PROVIDERS: Student in an Organized Health Care Education/Training Program; Admitting Provider Orthopaedic Surgery; Visit Provider Orthopaedic Surgery
PROC: 0SPC0JZ Removal of Synthetic Substitute from Right Knee Joint, Open Approach (ICD-10-PCS; principal; 2021-11-23 09:20)
DX: T84.53XA Infection and inflammatory reaction due to internal right knee prosthesis, initial encounter (principal); Y79.8 Miscellaneous orthopedic devices associated with adverse incidents, not elsewhere classified; I25.10 Atherosclerotic heart disease of native coronary artery without angina pectoris; Z86.16 Personal history of COVID-19; I10 Essential (primary) hypertension; E78.5 Hyperlipidemia, unspecified; D50.9 Iron deficiency anemia, unspecified; K29.70 Gastritis, unspecified, without bleeding; I25.2 Old myocardial infarction; Z79.891 Long term (current) use of opiate analgesic; Z79.51 Long term (current) use of inhaled steroids; Z79.82 Long term (current) use of aspirin
CPT/HCPCS: 36415; 51702; 73560; 80202; 82565; 85018; 85651; 86140; 87070; 87075; 87176; 87205; 97110; 97116; 97161; C1776; J0171; J1100; J1885; J2250; J2704; J2795; J3260; J3370; J3490; J7030; J7050; P9041

== ENCOUNTER 2021-11-27 09:48 | Outpatient (CLI) | payer OTHER, SELFPAY ==
--- NOTE | 2021-11-27 10:08 | USCV_ITS ---
Sander Garay Age: 60 Gender: M : 1960 Exam Date: 11/27/2021 10:45 Ordering Phys: Josse Alex APN Technologist: Charity Yañez [place] [facility] [place] Post op Rt knee replacement HISTORY: Post op knee replacement PROCEDURES: Comparison:. 10/24/21 Venous duplex imaging was performed in only the right lower extremity. The following venous structures were evaluated: common femoral vein, profunda vein, proximal portion of the greater saphenous vein, superficial femoral vein, and the popliteal vein. In addition, the posterior tibial and peroneal trunk were evaluated. Serial compression, augmentation maneuvers, and spectral Doppler flow evaluation were performed. FINDINGS: Non occlusive DVT noted at Rt. popliteal vein. All other vessels examined were neg for DVT. CONCLUSIONS Acute nonocclusive right popliteal DVT. Dr. Maribel Mora DO (Electronically Signed) Final Date: 27 November 2021 13:41 S
== END 2021-11-27 09:49 | disposition home or self-care (01) ==
LOC: RAD 09:49
PROVIDERS: PCP Registered Nurse; Visit Provider Nurse Practitioner Family
DX: M79.89 Other specified soft tissue disorders (principal); I82.431 Acute embolism and thrombosis of right popliteal vein; Z96.651 Presence of right artificial knee joint
CPT/HCPCS: 93971

== ENCOUNTER 2021-11-27 11:20 | Emergency (ER) | payer OTHER, SELFPAY ==
[2021-11-27 11:28] VITALS: BP 158/92; PULSE 59; RESP 16; TEMP 36.6; O2SAT 100
--- NOTE | 2021-11-27 11:52 | ED_ITS ---
Documented by User: Sumi Isidro PA-C 11/27/21 13:04 HPI - Extremity Problem General: Chief complaint: Extremity Problem,Nontraumatic Stated complaint: poss bloodclot Time Seen by Provider: 11/27/21 11:38 Source: patient Mode of arrival: ambulatory Limitations: no limitations History of Present Illness: 60-year-old male presents to the ER today after he had an ultrasound. Patient had a knee replacement on Tuesday and was doing well and woke up this morning with significantly increased swelling in the right lower extremity. Patient's PCP ordered an ultrasound and when they receive the results, they sent patient to the ER. Patient has a nonocclusive right popliteal DVT. Patient reports he has really no increased pain. He denies any shortness of breath denies any chest pain. Patient denies any history of blood clots. Denies any family history of clotting disorders that he is aware of. Patient reports he is not in any increased pain at this time. Review of Systems General: Reports: 10 or more systems reviewed and unremarkable except in HPI and below PFSH ED PFSH: Medical History CAD (coronary artery disease) History of 2019 novel coronavirus disease (COVID-19) HTN (hypertension) Hyperlipidemia Iron deficiency anemia Lower extremity edema Surgical History H/O knee surgery S/P tonsillectomy and adenoidectomy Family History Mother CAD (coronary artery disease) Hypertension Father Cancer Hypertension Social History Smoking and tobacco status: never smoked Alcohol intake: never Physical Exam Const: COMMON NORMALS: no acute distress, average body habitus, patient oriented x3, no limitations, alert and well nourished Resp: COMMON NORMALS: normal respiratory effort, No retractions and clear to auscultation bilaterally AUSCULTATION: clear to auscultation bilaterally Cardio: COMMON NORMALS: regular rate and regular rhythm RATE: regular rate RHYTHM: regular rhythm GI: COMMON NORMALS: Soft to palpation and non-tender PALPATION: Yes Soft to palpation Extremity: OTHER: It is noted the patient has swelling of the right lower extremity however he did have a knee replacement on Tuesday. There is no obvious erythema. Patient's right calf is nontender. Patient does have a sleeve on the right lower extremity with a dressing on the incision. Patient has equal pulses bilaterally . Neuro: COMMON NORMALS: patient oriented x3 SENSORIUM/ORIENTATION: Yes alert Psych: COMMON NORMALS: mental status grossly normal, Normal thought process p resent and cooperative THOUGHT PROCESS: Normal thought process present Skin: COMMON NORMALS: no rashes or lesions noted GENERAL SKIN EXAM: no rashes or lesions noted Course ED course: 60-year-old male presents to the ER today after having an ultrasound this morning. Patient was sent here by his PCP after the ultrasound for a DVT of the right lower extremity. Patient reports he had a knee replacement done on Tuesday and when he woke up this morning he noticed increased swelling. Patient does report he has been on his leg more over the last couple days because he is feeling better. Patient denies any increased pain in the right lower extremity. Patient denies any family history of blood clots, denies any personal history of clotting disorders or blood clots. Patient denies any shortness of breath or chest pain. Denies any headache or fevers. We will start patient on medication for DVT at this time. Vital Signs: Vital signs: Vital Signs Temperature 97.9 F 11/27/21 11:28 Pulse Rate 59 L 11/27/21 11:28 Respiratory Rate 16 11/27/21 11:28 Blood Pressure 158/92 11/27/21 11:28 Pulse Oximetry 100 11/27/21 11:28 Oxygen Delivery Me thod 11/27/21 11:28 MDM - Extremity (Nontraumatic) Medical Decision Making 60-year-old male presents to the ER today after having an ultrasound this morning. Patient was sent here by his PCP after the ultrasound for a DVT of the right lower extremity. Patient reports he had a knee replacement done on Tuesday and when he woke up this morning he noticed increased swelling. Patient does report he has been on his leg more over the last couple days because he is feeling better. Patient denies any increased pain in the right lower extremity. Patient denies any family history of blood clots, denies any personal history of clotting disorders or blood clots. Patient denies any shortness of breath or chest pain. Denies any headache or fevers. We will start patient on medication for DVT at this time. Will be given Lovenox in the ER today and we will send in Xarelto to patient's pharmacy. Discussed with patient the importance of going to medicinal plant picker that medication immediately. He should take it within 12 hours of the Lovenox injection. If patient has any trouble paying for the Xarelto he should contact the ER so we can work on changing the medication. Patient's lab work is stable. His hemoglobin is low however stable postop. Discussed the importance of follow-up with PCP in the first part of next week. If patient has any worsening symptoms including chest pain or shortness of breath he should ret urn to the ER immediately. Patient verbalized understanding and was in agreement with the treatment plan. Lab Data : 11/27/21 11:38 11/27/21 12:30 Laboratory Results WBC 7.0 10^3/uL (4.0-10.0) 11/27/21 11:38 RBC 3.07 10^6/uL (4.1-5.3) L 11/27/21 11:38 Hgb 8.4 g/dL (11.7-16.6) L 11/27/21 11:38 Hct 27.6 % (42.0-52.0) L 11/27/21 11:38 MCV 89.9 fl (80-94) 11/27/21 11:38 MCH 27.4 pg (28.0-34.0) L 11/27/21 11:38 MCHC 30.4 g/dL (30.0-36.0) 11/27/21 11:38 RDW 16.4 % (12.1-15.1) H 11/27/21 11:38 Plt Count 211 10^3/cmm (130-400) 11/27/21 11:38 MPV 11.1 fL (7.4-10.4) H 11/27/21 11:38 Neut % (Auto) 61.5 % 11/27/21 11:38 Lymph % (Auto) 20.6 % 11/27/21 11:38 [place] % (Auto) 10.4 % 11/27/21 11:38 Eos % (Auto) 5.2 % 11/27/21 11:38 Baso % (Auto) 1.0 % 11/27/21 11:38 Neut # (Auto) 4.28 10^3/uL (1.8-7.7) 11/27/21 11:38 Lymph # (Auto) 1.4 10^3/uL (0.8-4.8) 11/27/21 11:38 [place] # (Auto) 0.7 10^3/uL (0.2-0.9) 11/27/21 11:38 Eos # (Auto) 0.4 10^3/uL (0.0-0.8) 11/27/21 11:38 Baso # (Auto) 0.1 10^3/uL (0.0-0.1) 11/27/21 11:38 Nucleated RBC % (auto) 0 % 11/27/21 11:38 Nucleated RBCs # 0.0 /100WBC 11/27/21 11:38 Sodium 139 mmol/L (136-145) 11/27/21 12:30 Potassium 3.7 mmol/L (3.5-5.1) 11/27/21 12:30 Chloride 104 mmol/L (98-107) 11/27/21 12:30 Carbon Dioxide 25 mmol/L (22-29) 11/27/21 12:30 Anion Gap 13.7 (5-19) 11/27/21 12:30 BUN 9 mg/dL (8-23) 11/27/21 12:30 Creatinine 1.1 mg/dL (0.7-1.2) 11/27/21 12:30 GFR Calculation 68.3 mL/min (90-130) L 11/27/21 12:30 Glucose 85 mg/dL (65-115) 11/27/21 12:30 Calculated Osmolality 286 mOsm/kg (285-295) 11/27/21 12:30 Calcium 9.9 mg/dL (8.5-10.5) 11/27/21 12:30 Total Bilirubin 0.8 mg/dL (0.15-1.2) 11/27/21 12:30 AST 18 U/L (0-40) 11/27/21 12:30 ALT 14 U/L (0-41) 11/27/21 12:30 Alkaline Phosphatase 140 U/L (40-130) H 11/27/21 12:30 Total Protein 6.6 g/dL (6.6-8.7) 11/27/21 12:30 Albumin 3.6 g/dL (3.5-5.2) 11/27/21 12:30 Globulin 3.0 g/dL (1.3-4.6) 11/27/21 12:30 Critical Care Time Critical Care Time: Critical Care Time: No Discharge Plan Discharge Patient Disposition: Home Clinical Impression: Deep vein thrombosis of lower extremity Qualifiers: Affected thrombotic vein of extremity: popliteal Chronicity: acute Laterality: right Qualified Code(s): I82.431 - Acute embolism and thrombosis of right popliteal vein Condition: Stable Prescriptions: New Xarelto 15 mg tablet 15 mg PO BID 21 Days Qty: 42 0RF Rx Instructions: must administer with evening meal No Action tramadol 50 mg tablet 50 mg PO Q6H PRN (Reason: pain) Qty: 30 0RF aspirin [Adult Low Dose Aspirin] 81 mg tablet,delayed release (DR/EC) 81 mg PO DAILY albuterol sulfate 90 mcg/actuation HFA aerosol inhaler 2 puff inhalation QID PRN (Reason: shortness of breath or wheezing) Qty: 8.5 0RF metoprolol tartrate 25 mg tablet 12.5 mg PO BID Qty: 90 3RF losartan 100 mg tablet 150 mg PO DAILY Qty: 135 3RF isosorbide mononitrate 30 mg tablet extended release 24 hr 15 mg PO BID Qty: 90 3RF (DME) Wheelchair See Rx Instructions .Route .MEDSUPPLY Qty: 1 0RF Rx Instructions: As directed-Length of Need 6 months finasteride 5 mg Tablet 5 mg PO BEDTIME pantoprazole 40 mg tablet,delayed release (DR/EC) 40 mg PO BID 42 Days Qty: 84 0RF acetaminophen 500 mg Tablet 1,000 mg PO Q8H 14 Days Qty: 84 0RF celecoxib 200 mg Capsule 200 mg PO Q12H 14 Days Qty: 28 0RF gabapentin 300 mg Capsule 300 mg PO BID 7 Days Qty: 14 0RF oxycodone 5 mg Tablet 5 mg PO Q4H PRN (Reason: Moderate Pain) 7 Days Qty: 40 0RF rifampin 300 mg Capsule 300 mg PO BID 14 Days Qty: 28 0RF Discharge Orders: Discharge ED (Routine); Ordered 11/27/21 Ordered By: Sumi Isidro Referrals: Kacey Bautista [Primary Care Provider] - Discharge Diet: Usual diet Discharge Activity: Limit activity as instructed Patient Instructions: Opioid Safety Activity Restrictions/Additional Instructions: desktop support consultant Xarelto and start today. Take it as prescribed. Follow-up with PCP in 3 to 5 days. For any shortness of breath or chest pain return to the ER immediately. Otherwise follow discharge orders from knee replacement. Coding Level of Care Code ED Sharepoint Architect for Chg Fwd Exam Detailed Documented by User: Ben Connell DO 11/27/21 15:20 HPI - Extremity Problem General: Chief complaint: Extremity Problem,Nontraumatic Stated complaint: poss bloodclot Time Seen by Provider: 11/27/21 11:38 PFSH ED PFSH: Medical History CAD (coronary artery disease) History of 2019 novel coronavirus disease (COVID-19) HTN (hypertension) Hyperlipidemia Iron deficiency anemia Lower extremity edema Surgical History H/O knee surgery S/P tonsillectomy and adenoidectomy Family History Mother CAD (coronary artery disease) Hypertension Father Cancer Hypertension Social History Smoking and tobacco status: never smoked Alcohol intake: never Course Vital Signs: Vital signs: Vital Signs Temperature 97.9 F 11/27/21 11:28 Pulse Rate 59 L 11/27/21 11:28 Respiratory Rate 16 11/27/21 11:28 Blood Pressure 158/92 11/27/21 11:28 Pulse Oximetry 100 11/27/21 11:28 Oxygen Delivery Me thod 11/27/21 11:28 MDM - Extremity (Nontraumatic) Medical Decision Making 60-year-old male presents to the ER today after having an ultrasound this morning. Patient was sent here by his PCP after the ultrasound for a DVT of the right lower extremity. Patient reports he had a knee replacement done on Tuesday and when he woke up this morning he noticed increased swelling. Patient does report he has been on his leg more over the last couple days because he is feeling better. Patient denies any increased pain in the right lower extremity. Patient denies any family history of blood clots, denies any personal history of clotting disorders or blood clots. Patient denies any shortness of breath or chest pain. Denies any headache or fevers. We will start patient on medication for DVT at this time. Will be given Lovenox in the ER today and we will send in Xarelto to patient's pharmacy. Discussed with patient the importance of going to medicinal plant picker that medication immediately. He should take it within 12 hours of the Lovenox injection. If patient has any trouble paying for the Xarelto he homero uld contact the ER so we can work on changing the medication. Patient's lab work is stable. His hemoglobin is low however stable postop. Discussed the importance of follow-up with PCP in the first part of next week. If patient has any worsening symptoms including chest pain or shortness of breath he should return to the ER immediately. Patient verbalized understanding and was in agreement with the treatment plan. Chart reviewed and patient discussed with midlevel. Agree with assessment and plan. Lab Data : 11/27/21 11:38 11/27/21 12:30 Laboratory Results WBC 7.0 10^3/uL (4.0-10.0) 11/27/21 11:38 RBC 3.07 10^6/uL (4.1-5.3) L 11/27/21 11:38 Hgb 8.4 g/dL (11.7-16.6) L 11/27/21 11:38 Hct 27.6 % (42.0-52.0) L 11/27/21 11:38 MCV 89.9 fl (80-94) 11/27/21 11:38 MCH 27.4 pg (28.0-34.0) L 11/27/21 11:38 MCHC 30.4 g/dL (30.0-36.0) 11/27/21 11:38 RDW 16.4 % (12.1-15.1) H 11/27/21 11:38 Plt Count 211 10^3/cmm (130-400) 11/27/21 11:38 MPV 11.1 fL (7.4-10.4) H 11/27/21 11:38 Neut % (Auto) 61.5 % 11/27/21 11:38 Lymph % (Auto) 20.6 % 11/27/21 11:38 [place] % (Auto) 10.4 % 11/27/21 11:38 Eos % (Auto) 5.2 % 11/27/21 11:38 Baso % (Auto) 1.0 % 11/27/21 11:38 Neut # (Auto) 4.28 10^3/uL (1.8-7.7) 11/27/21 11:38 Lymph # (Auto) 1.4 10^3/uL (0.8-4.8) 11/27/21 11:38 [place] # (Auto) 0.7 10^3/uL (0.2-0.9) 11/27/21 11:38 Eos # (Auto) 0.4 10^3/uL (0.0-0.8) 11/27/21 11:38 Baso # (Auto) 0.1 10^3/uL (0.0-0.1) 11/27/21 11:38 Nucleated RBC % (auto) 0 % 11/27/21 11:38 Nucleated RBCs # 0.0 /100WBC 11/27/21 11:38 Sodium 139 mmol/L (136-145) 11/27/21 12:30 Potassium 3.7 mmol/L (3.5-5.1) 11/27/21 12:30 Chloride 104 mmol/L (98-107) 11/27/21 12:30 Carbon Dioxide 25 mmol/L (22-29) 11/27/21 12:30 Anion Gap 13.7 (5-19) 11/27/21 12:30 BUN 9 mg/dL (8-23) 11/27/21 12:30 Creatinine 1.1 mg/dL (0.7-1.2) 11/27/21 12:30 GFR Calculation 68.3 mL/min (90-130) L 11/27/21 12:30 Glucose 85 mg/dL (65-115) 11/27/21 12:30 Calculated Osmolality 286 mOsm/kg (285-295) 11/27/21 12:30 Calcium 9.9 mg/dL (8.5-10.5) 11/27/21 12:30 Total Bilirubin 0.8 mg/dL (0.15-1.2) 11/27/21 12:30 AST 18 U/L (0-40) 11/27/21 12:30 ALT 14 U/L (0-41) 11/27/21 12:30 Alkaline Phosphatase 140 U/L (40-130) H 11/27/21 12:30 Total Protein 6.6 g/dL (6.6-8.7) 11/27/21 12:30 Albumin 3.6 g/dL (3.5-5.2) 11/27/21 12:30 Globulin 3.0 g/dL (1.3-4.6) 11/27/21 12:30 Discharge Plan Discharge Patient Disposition: Home Clinical Impression: Deep vein thrombosis of lower extremity Qualifiers: Affected thrombotic vein of extremity: popliteal Chronicity: acute Laterality: right Qualified Code(s): I82.431 - Acute embolism and thrombosis of right popliteal vein Condition: Stable Prescriptions: New Xarelto 15 mg tablet 15 mg PO BID 21 Days Qty: 42 0RF Rx Instructions: must administer with evening meal No Action tramadol 50 mg tablet 50 mg PO Q6H PRN (Reason: pain) Qty: 30 0RF aspirin [Adult Low Dose Aspirin] 81 mg tablet,delayed release (DR/EC) 81 mg PO DAILY albuterol sulfate 90 mcg/actuation HFA aerosol inhaler 2 puff inhalation QID PRN (Reason: shortness of breath or wheezing) Qty: 8.5 0RF metoprolol tartrate 25 mg tablet 12.5 mg PO BID Qty: 90 3RF losartan 100 mg tablet 150 mg PO DAILY Qty: 135 3RF isosorbide mononitrate 30 mg tablet extended release 24 hr 15 mg PO BID Qty: 90 3RF (DME) Wheelchair See Rx Instructions .Route .MEDSUPPLY Qty: 1 0RF Rx Instructions: As directed-Length of Need 6 months finasteride 5 mg Tablet 5 mg PO BEDTIME pantoprazole 40 mg tablet,delayed release (DR/EC) 40 mg PO BID 42 Days Qty: 84 0RF acetaminophen 500 mg Tablet 1,000 mg PO Q8H 14 Days Qty: 84 0RF celecoxib 200 mg Capsule 200 mg PO Q12H 14 Days Qty: 28 0RF gabapentin 300 mg Capsule 300 mg PO BID 7 Days Qty: 14 0RF oxycodone 5 mg Tablet 5 mg PO Q4H PRN (Reason: Moderate Pain) 7 Days Qty: 40 0RF rifampin 300 mg Capsule 300 mg PO BID 14 Days Qty: 28 0RF Discharge Orders: Discharge ED (Routine); Ordered 11/27/21 Ordered By: Sumi Isidro Referrals: Kacey Bautista [Primary Care Provider] - Discharge Diet: Usual diet Discharge Activity: Limit activity as instructed Patient Instructions: Opioid Safety Activity Restrictions/Additional Instructions: desktop support consultant Xarelto and start today. Take it as prescribed. Follow-up with PCP in 3 to 5 days. For any shortness of breath or chest pain return to the ER immediately. Otherwise follow discharge orders from knee replacement. Coding Level of Care Code ED Sharepoint Architect for Amor Fwd Exam Detailed
[2021-11-27] MEDS: enoxaparin 100 mg/mL Syringe 97 MG SUBCUT (12:09)
[2021-11-27 12:42] LABS: Basophils # 0.1 10^3/uL (0.0-0.1); Eosinophils # 0.4 10^3/uL (0.0-0.8); Eosinophils % 5.2 %; Hematocrit 27.6 % (42.0-52.0); Hemoglobin 8.4 g/dL (11.7-16.6); Lymphocytes # 1.4 10^3/uL (0.8-4.8); Lymphocytes % 20.6 %; Mean Corpuscular HGB Conc 30.4 g/dL (30.0-36.0); Mean Corpuscular Hemoglobin 27.4 pg (28.0-34.0); Mean Corpuscular Volume 89.9 fl (80-94); Mean Platelet Volume 11.1 fL (7.4-10.4); Monocytes # 0.7 10^3/uL (0.2-0.9); Monocytes % 10.4 %; Neutrophils # 4.28 10^3/uL (1.8-7.7); Neutrophils % 61.5 %; Nucleated Red Blood Cells % 0 %; Platelet Count 211 10^3/cmm (130-400); Red Blood Count 3.07 10^6/uL (4.1-5.3); Red Cell Distribution Width 16.4 % (12.1-15.1)
[2021-11-27 12:59] LABS: Alanine Aminotransferase 14 U/L (0-41); Albumin Level 3.6 g/dL (3.5-5.2); Alkaline Phosphatase 140 U/L (40-130); Anion Gap 13.7 (5-19); Aspartate Amino Transferase 18 U/L (0-40); Blood Urea Nitrogen 9 mg/dL (8-23); Calcium 9.9 mg/dL (8.5-10.5); Carbon Dioxide 25 mmol/L (22-29); Chloride 104 mmol/L (98-107); Glomerular Filtration Rate 68.3 mL/min (90-130); Glucose 85 mg/dL (65-115); Osmolality Calculated 286 mOsm/kg (285-295); Potassium 3.7 mmol/L (3.5-5.1); Sodium 139 mmol/L (136-145); Total Bilirubin 0.8 mg/dL (0.15-1.2); Total Protein 6.6 g/dL (6.6-8.7)
== END 2021-11-27 13:26 | disposition home or self-care (01) ==
PROVIDERS: Emergency Provider Physician Assistant; PCP Registered Nurse
DX: I82.431 Acute embolism and thrombosis of right popliteal vein (principal); Z79.82 Long term (current) use of aspirin; I25.10 Atherosclerotic heart disease of native coronary artery without angina pectoris; I10 Essential (primary) hypertension; E78.5 Hyperlipidemia, unspecified
CPT/HCPCS: 80053; 85025; 96372; 99284; J1650

== ENCOUNTER 2021-12-01 15:48 | Outpatient (RCR) | payer OTHER, SELFPAY ==
[2021-11-26 12:23] LABS: Vancomycin Trough 10.6 ug/mL (10-15)
[2021-12-01 17:03] LABS: Basophils # 0.1 10^3/uL (0.0-0.1); Eosinophils # 0.4 10^3/uL (0.0-0.8); Eosinophils % 5.1 %; Hematocrit 28.3 % (42.0-52.0); Hemoglobin 8.6 g/dL (11.7-16.6); Lymphocytes # 1.5 10^3/uL (0.8-4.8); Lymphocytes % 20.7 %; Mean Corpuscular HGB Conc 30.4 g/dL (30.0-36.0); Mean Corpuscular Hemoglobin 27.5 pg (28.0-34.0); Mean Corpuscular Volume 90.4 fl (80-94); Mean Platelet Volume 10.3 fL (7.4-10.4); Monocytes % 13.7 %; Neutrophils # 4.09 10^3/uL (1.8-7.7); Neutrophils % 57.7 %; Nucleated Red Blood Cells % 0 %; Platelet Count 285 10^3/cmm (130-400); Red Blood Count 3.13 10^6/uL (4.1-5.3); White Blood Count 7.1 10^3/uL (4.0-10.0)
[2021-12-01 17:05] LABS: Erythrocyte Sedimentation Rate 22 mm/hr (0-10)
[2021-12-01 17:46] LABS: Alanine Aminotransferase 17 U/L (0-41); Albumin Level 3.7 g/dL (3.5-5.2); Alkaline Phosphatase 140 U/L (40-130); Anion Gap 12.8 (5-19); Aspartate Amino Transferase 20 U/L (0-40); Blood Urea Nitrogen 8 mg/dL (8-23); C Reactive Protein 19.7 mg/L (0.0-4.9); Calcium 9.7 mg/dL (8.5-10.5); Carbon Dioxide 27 mmol/L (22-29); Chloride 106 mmol/L (98-107); Globulin 2.7 g/dL (1.3-4.6); Glomerular Filtration Rate 61.8 mL/min (90-130); Glucose 97 mg/dL (65-115); Osmolality Calculated 292 mOsm/kg (285-295); Potassium 3.8 mmol/L (3.5-5.1); Sodium 142 mmol/L (136-145); Total Bilirubin 0.3 mg/dL (0.15-1.2); Total Protein 6.4 g/dL (6.6-8.7)
[2021-12-01 18:08] LABS: Vancomycin Trough 11.3 ug/mL (10-15)
== END 2021-12-25 23:59 | disposition home or self-care (01) ==
LOC: LAB 15:48
PROVIDERS: Visit Provider Student in an Organized Health Care Education/Training Program
DX: T84.53XA Infection and inflammatory reaction due to internal right knee prosthesis, initial encounter (principal); B95.7 Other staphylococcus as the cause of diseases classified elsewhere; Y83.8 Other surgical procedures as the cause of abnormal reaction of the patient, or of later complication, without mention of misadventure at the time of the procedure
CPT/HCPCS: 80053; 80202; 85025; 85651; 86140

== ENCOUNTER → 2021-12-25 09:21 | Outpatient (BNVA) | payer OTHER, SELFPAY | PROVIDERS: PCP Registered Nurse; Visit Provider Nurse Practitioner Family | DX: Z96.651 Presence of right artificial knee joint (principal) | CPT/HCPCS: 73560; 73565 ==

== ENCOUNTER → 2022-01-07 10:32 | Outpatient (BNVA) | payer OTHER, SELFPAY | PROVIDERS: PCP Registered Nurse; Visit Provider Nurse Practitioner Family | DX: D64.9 Anemia, unspecified (principal); I82.409 Acute embolism and thrombosis of unspecified deep veins of unspecified lower extremity | CPT/HCPCS: 82607; 83550; 85025 ==

== ENCOUNTER → 2022-01-11 08:44 | Outpatient (BNVA) | payer OTHER, SELFPAY | PROVIDERS: PCP Registered Nurse; Visit Provider Nurse Practitioner Family | DX: D64.9 Anemia, unspecified (principal); D50.9 Iron deficiency anemia, unspecified; I10 Essential (primary) hypertension; Z79.899 Other long term (current) drug therapy | CPT/HCPCS: 83540; 85025 ==

== ENCOUNTER → 2022-01-21 15:50 | Outpatient (BNVA) | payer OTHER, SELFPAY | PROVIDERS: PCP Registered Nurse; Visit Provider Student in an Organized Health Care Education/Training Program | DX: T84.50XA Infection and inflammatory reaction due to unspecified internal joint prosthesis, initial encounter (principal) | CPT/HCPCS: 36415; 85651; 86140 ==

== ENCOUNTER → 2022-01-29 10:55 | Outpatient (BNVA) | payer OTHER, SELFPAY | PROVIDERS: PCP Registered Nurse; Visit Provider Nurse Practitioner Family | DX: R31.9 Hematuria, unspecified (principal); I82.409 Acute embolism and thrombosis of unspecified deep veins of unspecified lower extremity | CPT/HCPCS: 81000 ==

== ENCOUNTER → 2022-02-10 09:33 | Outpatient (BNVA) | payer OTHER, SELFPAY | PROVIDERS: PCP Registered Nurse; Visit Provider Nurse Practitioner Family | DX: R31.9 Hematuria, unspecified (principal) | CPT/HCPCS: 81000; 87086 ==

== ENCOUNTER 2022-02-15 06:44 | Outpatient (CLI) | payer OTHER, SELFPAY ==
--- NOTE | 2022-02-15 07:15 | US_ITS ---
WS: [id number] RENAL ULTRASOUND HISTORY: R31.9 - Hematuria, unspecified COMPARISON: None available. TECHNIQUE: 2-D and color Doppler imaging of the kidney submitted. Right kidney: 11.7 cm x 5.4 cm x 6.5 cm. Normal size kidney and normal echogenicity. Several nonobstructing renal calcifications are identifie d. The largest calcification in the mid kidney measures approximately 1.2 cm. 2 calcifications. No ma ss or hydronephrosis. Left kidney: 11.4 cm x 4.0 cm x 5.7 cm. Normal size kidney. Nonobstructing calcifications with the largest in the mid kidney measuring approx imately 1.1 cm. 3 calcifications noted on the LEFT. Simple cyst superior pole kidney measures 2.7 x 3 .2 x 2.4 cm. No solid mass. No obstruction. Aorta: Mild atherosclerosis aorta. Urinary Bladder: Minimally distended bladder. No abnormality. US/US renal BI* [id number] IMPRESSION: 1. Bilateral nephrolithiasis with no obstruction. The largest calcification me asures 1.2 cm within the RIGHT renal pelvis. 2. Simple cyst superior pole LEFT kidney.
== END 2022-02-15 06:45 | disposition home or self-care (01) ==
LOC: RAD 06:45
PROVIDERS: PCP Registered Nurse; Visit Provider Nurse Practitioner Family
DX: R31.9 Hematuria, unspecified (principal); N20.0 Calculus of kidney; N28.1 Cyst of kidney, acquired
CPT/HCPCS: 76770

== ENCOUNTER → 2022-02-16 14:39 | Outpatient (BNVA) | payer OTHER, SELFPAY | PROVIDERS: PCP Nurse Practitioner Family; Visit Provider Orthopaedic Surgery | DX: M17.12 Unilateral primary osteoarthritis, left knee (principal); Z96.651 Presence of right artificial knee joint | CPT/HCPCS: 73560; 73565 ==

== ENCOUNTER 2022-05-03 12:24 | Observation (INO) | payer OTHER, SELFPAY ==
[2022-04-26 10:06] VITALS: BMI 34.7
[2022-04-26 11:06] LABS: INR 1.33 (0.8-1.2)
[2022-04-26 11:11] LABS: Anion Gap 15.2 (5-19); Blood Urea Nitrogen 15 mg/dL (8-23); Calcium 9.9 mg/dL (8.5-10.5); Carbon Dioxide 21 mmol/L (22-29); Chloride 103 mmol/L (98-107); Glucose 95 mg/dL (65-115); Osmolality Calculated 281 mOsm/kg (285-295); Potassium 4.2 mmol/L (3.5-5.1); Sodium 135 mmol/L (136-145)
--- NOTE | 2022-04-26 14:34 | ANES.PREANE2 ---
Pre-Anesthetic Assessment Height/Weight: Height 1.73 m Weight 103.419 kg Preop Diagnosis: Status post removal infected right total knee Operation Date: 05/03/22 07:00 Proposed Procedures p Left total knee arthroplasty 56934,M17.12(Left) - Fly Cline MD Familial anesthetic complications: none Was Beta Rosetta taken within 24 hours: Yes Was Clonidine taken within 24 hours: N/A Social No alcohol and No tobacco Exam alert, oriented x 3, clear to auscultation bilaterally and regular rate & rhythm Airway Submandibular: within normal limits Cervical ROM: within normal limits Mallampati: Class II Pulmonary Chronic Obstructive Pulmonary Disease CV/HEM Anemia, Coronary Artery Disease (stent X 3 (last in Dec)), Deep Vein Thrombosis, Hypertension and Myocardial Infarction Anticoagulated (DVT) [facility] [place] Osteoarthritis/DJD Anesthetic Plan ASA status: 3 Anesthesia: Regional (specify below) (SAB with adductor blk (off anticoag 3ds)) Medications/Allergies Home Medications Medication Instructions Recorded Confirmed Last Taken Type aspirin 81 mg tablet,delayed 81 mg PO DAILY 12/19/19 04/26/22 04/12/22 History release (Adult Low Dose Aspirin) albuterol sulfate 90 mcg/actuation 2 puff inhalation QID PRN 07/01/20 04/26/22 01/07/21 Rx aerosol inhaler shortness of breath or wheezing #8.5 grams tramadol 50 mg tablet 50 mg PO Q6H PRN pain #30 tabs 10/13/20 04/26/22 03/16/22 Rx losartan 100 mg tablet 150 mg PO DAILY #135 tabs 07/20/21 04/26/22 04/26/22 Rx finasteride 5 mg tablet 5 mg PO BEDTIME 10/24/21 04/26/22 04/14/22 History metoprolol tartrate 25 mg tablet 12.5 mg PO BID #90 tabs 12/21/21 04/26/22 04/26/22 Rx isosorbide mononitrate 30 mg See Rx Instructions PO BID #125 02/10/22 04/26/22 04/26/22 Rx tablet,extended release 24 hr tabs amlodipine 5 mg tablet 5 mg PO DAILY #90 tabs 03/11/22 04/26/22 04/26/22 Rx rivaroxaban 10 mg tablet (Xarelto) 10 mg PO DAILY #90 tabs 04/05/22 04/26/22 04/26/22 Rx acetaminophen 650 mg 800 mg PO Q12H 04/26/22 04/26/22 04/26/22 History tablet,extended release (Tylenol 8 Hour) nitroglycerin 0.4 mg sublingual 0.4 mg sublingual Q5M PRN Chest 04/26/22 04/26/22 02/10/22 History tablet Pain Allergies Allergy/AdvReac Type Severity Reaction Status Date / Time doxycycline Allergy ADR-Itching Verified 04/26/22 09:58 COUNT INCLUDES THE [facility] Anesthesia Medical History CAD (coronary artery disease) History of 2019 novel coronavirus disease (COVID-19) HTN (hypertension) Hyperlipidemia Iron deficiency anemia Lower extremity edema Surgical History H/O knee surgery S/P tonsillectomy and adenoidectomy Family History Mother CAD (coronary artery disease) Hypertension Father Cancer Hypertension Lung disease Stroke Family/Other Diabetes Hyperlipidemia Hypertension Denies family history of Dementia Chronic kidney disease (CKD) Social History Smoking and tobacco status: former smoker Alcohol intake: never Adopted: No Lives independently: Yes Household members: spouse and family Housing: House Marital status: Data Anesthesia 04/26/22 10:20 BMP 04/26/22 10:20 Sodium 135 L Potassium 4.2 Chloride 103 Carbon Dioxide 21 L BUN 15 Creatinine 1.0 Glucose 95 Calcium 9.9 Coags 04/26/22 10:20 PT 16.80 H INR 1.33 H Cardiac Studies: Echocardiogram 10/24/21
[2022-05-03] VITALS (19 sets, daily range): BP systolic 107–179; BP diastolic 58–107; PULSE 54–82; RESP 14–18; TEMP 36.1–36.9; O2SAT 91–98; BMI 34.7
--- NOTE | 2022-05-03 08:16 | P.ANESUD_ITS ---
Pre-Anesthetic Update Pre-Anesthetic Assessment: Date of Surgery/Procedure: 05/03/22 Preop Brandy gnosis: Osteoarthritis left knee Proposed Procedure: Operation Date: 05/03/22 09:45 Proposed Procedures p Left total knee arthroplasty 36998,M17.12(Left) - Fly Cline MD Any changes to Pre-Anesthetic Assessment?: No Last Intake: Intake Last Liquid Date 05/02/22 Last Liquid Time 22:00 Last Solid Date 05/02/22 Last Solid Time 22:00 Vitals: Temperature 98.5 F 05/03/22 07:52 Temperature Source Temporal Artery S can 05/03/22 07:52 Pulse Rate 65 05/03/22 07:52 Pulse Rhythm 05/03/22 07:57 Pulse Strength 3+ Normal 05/03/22 07:57 Respiratory Rate 16 05/03/22 07:52 Blood Pressure 179/107 05/03/22 07:52 Blood Pressure Chey n 131 05/03/22 07:52 Pulse Oximetry 97 05/03/22 07:52 Oxygen Delivery Me thod 05/03/22 07:57 Exam: Pre-Anes Outpt Exam: alert, oriented x 3, clear to auscultation bilaterally and regular rate & rhythm Other Pertinent Information: Other Pertinent Information: Patient denies having stent placed in jan 16 and unable to find records indicating as such. Cath from september - decision was made to proceed with medical management Cardiac Studies: Echocardiogram 10/24/21
[2022-05-03] MEDS: gabapentin 300 mg Capsule PO ×2 (08:17→17:15)
[2022-05-03] MEDS: sodium chloride 0.9% 1,000 ML 30 ML IV (08:17)
[2022-05-03] MEDS: CELEcoxib 200 mg Capsule 400 MG PO (08:18)
[2022-05-03 08:19] LABS: Basophils # 0.1 10^3/uL (0.0-0.1); Eosinophils # 0.1 10^3/uL (0.0-0.8); Eosinophils % 1.2 %; Hematocrit 42.2 % (42.0-52.0); Lymphocytes # 1.5 10^3/uL (0.8-4.8); Mean Corpuscular HGB Conc 33.2 g/dL (30.0-36.0); Mean Corpuscular Hemoglobin 29.8 pg (28.0-34.0); Mean Corpuscular Volume 89.8 fl (80-94); Mean Platelet Volume 11.1 fL (7.4-10.4); Monocytes # 0.7 10^3/uL (0.2-0.9); Monocytes % 9.8 %; Neutrophils # 4.87 10^3/uL (1.8-7.7); Neutrophils % 66.2 %; Nucleated Red Blood Cells % 0 %; Platelet Count 189 10^3/cmm (130-400); Red Cell Distribution Width 14.1 % (12.1-15.1); White Blood Count 7.4 10^3/uL (4.0-10.0)
[2022-05-03] MEDS: oxyCODONE 20 mg ER (12 HR) Tablet PO (08:19)
[2022-05-03] MEDS: acetaminophen 500 mg Tablet 1000 MG PO ×3 (08:19→20:34)
[2022-05-03 08:26] LABS: INR 0.91 (0.8-1.2)
[2022-05-03] MEDS: scopolamine 1.5 Patch 1 PATCH TRANSDERMA (08:36)
--- NOTE | 2022-05-03 09:22 | W.PM.OPSFHP ---
Same Day Surgery H&P Indication for Procedure/HPI DATE OF PROCEDURE: May 03, 2022 CHIEF COMPLAINT/INDICATIONFOR SURGICAL PROCEDURE: Osteoarthritis left knee here for left total knee arthroplasty PREOP DIAGNOSIS: Osteoarthritis left knee PLANNED PROCEDURE: Operation Date: 05/03/22 09:45 Proposed Procedures p Left total knee arthroplasty 17013,M17.12(Left) - Fly Cline MD Mr. Garay is here for elective left total knee arthroplasty. He had a complicated history of a right deep knee infection although has been treated with antibiotics and two-stage revision and is doing well without.He describes activity related pain that is every bit as bad as his right knee was before it was replaced.? Is difficult for him to stand and walk.? He localizes the pain to the medial aspect.? He states even tramadol he is taking is not helping.? He currently is on Xarelto and is not a candidate for anti-inflammatories.?? Medications/Allergies* Home Medications Medication Instructions Recorded Confirmed Type aspirin 81 mg tablet,delayed 81 mg PO DAILY 12/19/19 04/26/22 History release (Adult Low Dose Aspirin) finasteride 5 mg tablet 5 mg PO BEDTIME 10/24/21 04/26/22 History acetaminophen 650 mg 800 mg PO Q12H 04/26/22 04/26/22 History tablet,extended release (Tylenol 8 Hour) nitroglycerin 0.4 mg sublingual 0.4 mg sublingual Q5M PRN Chest 04/26/22 04/26/22 History tablet Pain Allergies/Adverse Reactions Allergy/AdvReac Type Severity Reaction Status Date / Time doxycycline Allergy ADR-Itching Verified 04/26/22 09:58 Current Medications: Generic Name Dose Route Start Last Admin Trade Name Freq PRN Reason Stop Dose Admin Sodium Chloride 1,000 mls @ 30 mls/hr 05/03/22 07:30 05/03/22 08:17 Sodium Chloride 0.9% IV 05/04/22 07:29 30 mls/hr .Q24H MIKE Administration Pertinent History/Comorbid Conditions* Medical History (Updated 04/12/22 @ 16:00 by DONNIE Abernathy) CAD (coronary artery disease) History of 2019 novel coronavirus disease (COVID-19) HTN (hypertension) Hyperlipidemia Iron deficiency anemia Lower extremity edema Surgical History (Updated 11/24/21 @ 10:27 by Fly Cline MD) H/O knee surgery S/P tonsillectomy and adenoidectomy Family History (Updated 04/12/22 @ 10:31 by Grace Martin LPN) Diabetes Family/Other CAD (coronary artery disease) Mother Hyperlipidemia Family/Other Lung disease Father Cancer Father Hypertension Mother Father Family/Other Stroke Father Denies family history of Dementia Chronic kidney disease (CKD) Social History Smoking and tobacco status: former smoker Alcohol intake: never Adopted: No Lives independently: Yes Household members: spouse and family Housing: House Marital status: Pertinent Exam Findings alert, oriented x 3, clear to auscultation bilaterally, regular rate & rhythm and operative site marked Left knee He has resting varus deformity of his left knee of approximately 15 degrees.? Motion is from 10 degrees short of full extension to 100 degrees. I cannot passively correct his knee back to neutral. He has no effusion. Sharp tenderness over the medial joint Patella tracks well. Recommendations Surgery/Procedure today Coding Level of Care Code Acute Code for Amor Fwcatalina
--- NOTE | 2022-05-03 09:24 | SUR.PREOP ---
TOLERATED NERVE BLOCK WELL. ROM AND PULSE LEFT FOOT.
[2022-05-03] MEDS: ceFAZolin 2,000 MG in sodium chloride 0.9% (plus) 50 ML 100 MG IV ×2 (10:02→17:14)
[2022-05-03] MEDS: tranexamic acid 1,000 mg/10mL SDV 1000 MG IV (10:45)
--- NOTE | 2022-05-03 10:53 | ANES.PROC ---
Anesthesia Procedures Procedure/Date: 05/03/22 left total knee Nerve Block ^: Nerve Block 1: Main Anesthesia: spinal anesthesia block Time Out Performed: Yes Consent: requested by attending/covering physician, from patient, risks and benefits reviewed and patient agrees to proceed Nerve block location: adductor canal and other (geniculars, pop plexus) Anesthesia monitors applied: pulse oximetry, EKG, BP cuff and oxygen Nerve block position: supine Anesthetic Used: ropivicaine 0.5% and with decadron Amount of anesthesia used (mL): 60 Ultrasound used to: recognize landmarks Nerve Stimulator Used?: No Interscalene/Femoral BLK: 4 stimuplex 21 g needle used for position and inplane approach, visualize local anesthetic spread and no vascular puncture identified Injection: neg aspiration of heme Patient Tolerated Procedure: well and no complications Complications: none Additional Comments: 2 mg versed given. verbal communication maintained through procedure. direct needle visualization via ultrasound. no resistance to injection.
[2022-05-03] MEDS: ketorolac 30 mg/mL INJ XX (11:21)
[2022-05-03] MEDS: EPINEPHrine 1 mg/mL INJ XX (11:22)
[2022-05-03] MEDS: tranexamic acid 1,000 mg/10mL SDV 1000 MG XX (11:25)
[2022-05-03] MEDS: vancomycin 1,000 MG SDV 1000 MG XX (11:32)
--- NOTE | 2022-05-03 12:07 | XRR_ITS ---
PROCEDURE INFORMATION: Exam: XR Left Knee Exam date and time: 05/03/2022 12:48 PM Age: 61 years old Clinical indication: Device placement; Joint replacement hardware; Prior surgery; Surgery date: Post-operative (0-2 days); Surgery type: Left total knee arthroplasty TECHNIQUE: Imaging protocol: Radiologic exam of the Left knee. Views: 1 or 2 views. COMPARISON: CR (KNEE AP, KNEE, KNEE AP) 02/16/2022 2:47 PM FINDINGS: Bones/joints: Patient has since undergone left knee arthroplasty that appears in satisfactory position. Bone metal interface is unremarkable. There is no periprosthetic fracture. Remaining visualized osseous structures are unremarkable. Soft tissues: There is generalized soft tissue swelling and joint effusion presumed secondary to the recent surgery. XR/XR knee LT 1-2V 39483 IMPRESSION: Recent left total knee replacement in satisfactory position.
--- NOTE | 2022-05-03 12:08 | PM.OP ---
Operative Report Date of procedure: May 03, 2022 Pre-op diagnosis: Preop Diagnosis Osteoarthritis left knee Post-op diagnosis: same Post-op diagnosis: Same Post-op findings: Same Procedure done: Left total knee arthroplasty Implants: Philipp Triathalon total knee arthroplasty components were used includin) Size 5 triathalon cruciate retaining femoral component 2) Size 6 Tritanium tibial component 3) Size 6/14 mm thickness CS tibial bearing insert Pathology: none sent Surgeon: Fly Cline Anesthesia: Nerve Block (Spinal, adductor canal block) Estimated blood loss (mL): 250 Findings: The patient had severe eburnated bone over his medial femoral condyle and medial tibial plateau with fixed varus malalignment of approximately 10 degrees. He had small osteophytes circumferentially about his patella well-preserved patellar cartilage thickness Condition: stable Disposition: PACU Procedure: The patient was taken to the operating room. Patient was given 1 g of tranexamic acid . The above anesthesia provided by the anesthesia service. A timeout was performed. The patient was prepped and draped in the usual fashion with the lower extremity exposed. A anterior incision was made, midline, from a point proximal to the patella to the distal tibial tubercle. The knee was entered through a medial parapatellar approach. The patella could be displaced laterally and the knee flexed. The patellar fat pad was resected to provide better visibility. Retractors were placed medially and laterally adjacent to the tibial plateau. The femoral canal was drilled in line with the longitudinal axis of the femur. Intramedullary femoral guide for used to make a distal femoral cut in 5 degrees of valgus, resecting 8 mm from the more prominent condyle. Next the extra medullary tibial guide was placed in alignment with the longitudinal axis of the tibia. The cutting guides were set to remove 2 mm from the high low medial plateau. This resulted to substantially more tibia to be resected from the lateral tibial plateau the proximal tibia was then cut. The femoral measuring guide was then placed over the distal femur. Rotation was verified checking the relationship of the guide to the condyle and the trochlear groove. The femur was measured and cut for the desired femoral component. The desired tibial baseplate was then chosen. A trial reduction with the femur tibial baseplate and polyethylene was done, assuring that the knee was stable throughout full motion. Ligament balancing involved a release of the deep and proximal superficial medial collateral ligament.The tibia was prepared for the tibial baseplate. Surfaces were cleaned with a gentamicin solution. The femur and tibia were then press-fit into place. The posterior capsule and collateral ligaments were then injected with a solution of 100 mL of 0.2% ropivacaine, 1 mL of a 1:1000 epinephrine solution, 30 mg of Toradol, and 1 g of tranexamic acid. Final polyethylene component was then snapped into place into the tibia. 1 g of vancomycin powder was sprinkled in the medial and lateral gutters. The extensor retinaculum was closed with a running 1 Stratafix interrupted 1 Ethibond. The subcutaneous tissues were closed with 2-0 Vicryl and the skin was closed with a running 4-0 Stratafix. The wound was covered with a Dermabond Prineo dressing. It was covered with 4xrs and a compressive Tubigauze was applied. The patient was taken to recovery room in stable condition.
--- NOTE | 2022-05-03 14:16 | ANE.PACU2 ---
Inpatient post-anesthesia follow up: Airway intact: Yes Vital signs: Temperature 97 F Pulse Rate 58 Respiratory Rate 16 Blood Pressure 133/71 Pulse Oximetry 95 Oxygen Delivery Me thod Room Air Oxygen Flow Rate Fraction of Inspir ed Oxygen Hydration adequate: Yes Nausea and vomiting: No Pain level: 1 Mental status: Baseline
[2022-05-03] MEDS: sodium chloride 0.9% 1,000 ML 100 ML IV (16:08)
[2022-05-03] MEDS: isosorbide mononitrate ER 30 mg Tablet 15 MG PO (17:14)
[2022-05-03] MEDS: sennosides-docusate Tablet 2 TAB PO (17:15)
[2022-05-03] MEDS: metoprolol tartrate 25 mg Tablet 12.5 MG PO (17:15)
[2022-05-03] MEDS: CELEcoxib 200 mg Capsule PO (19:22)
[2022-05-03] MEDS: oxyCODONE 5 mg IR Tab/Cap PO (19:22)
[2022-05-03] MEDS: finasteride 5 mg Tablet PO (20:34)
[2022-05-04] VITALS (7 sets, daily range): BP systolic 106–153; BP diastolic 70–84; PULSE 63–65; RESP 16–18; TEMP 36.3–36.4; O2SAT 95
[2022-05-04] MEDS: sodium chloride 0.9% 1,000 ML 100 ML IV (02:30)
[2022-05-04] MEDS: oxyCODONE 5 mg IR Tab/Cap PO ×2 (02:32→09:02)
[2022-05-04] MEDS: ceFAZolin 2,000 MG in sodium chloride 0.9% (plus) 50 ML 100 MG IV (02:32)
[2022-05-04 03:10] LABS: Hemoglobin 11.5 g/dL (11.7-16.6)
[2022-05-04] MEDS: acetaminophen 500 mg Tablet 1000 MG PO (04:10)
--- NOTE | 2022-05-04 07:49 | P.DS_ITS ---
Discharge Providers Date of Admission: 05/03/22 12:24 Date of Discharge: May 04, 2022 Attending Provider at Admission: Fly Bangura MD Attending Provider at Discharge: Fly Bangura MD Primary Care Provider: DONNIE Peralta Reason for Visit Reason for Visit: surgery Brief History: Patient is a 61-year-old male with osteoarthritis of the left knee and persistent pain and functional limitations. He is admitted for left total knee arthroplasty Hospital Course Hospital Course The patient tolerated surgery well. They remained hemodynamically stable. They was begun on foot pumps for DVT prophylaxis. The patient was mobilized with therapy beginning the day of surgery and by the first postoperative day independent with the walker. As the pain was adequately controlled and they were fully mobile they were discharged home. The patient has been managing his Xarelto for deep venous thromboses over 3 months ago. Anticoagulation was to be held until all drainage was completed from the knee. Physical Exam Narrative: On the day of discharge the knee incision was clean. They had light bloody drainage from the central incision. there is minimal swelling in the thigh and knee and the calf. No distal neurovascular deficits were noted Urinary Catheter Management: Stephenson: Cath Placed During This Visit: yes, but has since been removed by the nurse Reason for Continuing Indwelling Catheter: Decision to DC Catheter Urinary Catheter Date of Insertion: 05/03/22 Urinary Catheter Time of Insertion: 10:40 Date Urinary Catheter Removed: 05/04/22 Time Urinary Catheter Discontinued: 06:47 Discharge Data Studies Completed and Pending Completed Studies During Hospitalization Category Date Time Status XR knee LT 1-2V 52499 Routine Exams 05/03/22 12:07 Completed Radiology Impressions Knee X-Ray 05/03/22 12:07 IMPRESSION: Recent left total knee replacement in satisfactory position. Laboratory Results WBC 7.4 10^3/uL (4.0-10.0) 05/03/22 08:07 RBC 4.70 10^6/uL (4.1-5.3) 05/03/22 08:07 Hgb 11.5 g/dL (11.7-16.6) L 05/04/22 03:00 Hct 42.2 % (42.0-52.0) 05/03/22 08:07 MCV 89.8 fl (80-94) 05/03/22 08:07 MCH 29.8 pg (28.0-34.0) 05/03/22 08:07 MCHC 33.2 g/dL (30.0-36.0) 05/03/22 08:07 RDW 14.1 % (12.1-15.1) 05/03/22 08:07 Plt Count 189 10^3/cmm (130-400) 05/03/22 08:07 MPV 11.1 fL (7.4-10.4) H 05/03/22 08:07 Neut % (Auto) 66.2 % 05/03/22 08:07 Lymph % (Auto) 21.0 % 05/03/22 08:07 Sunflower % (Auto) 9.8 % 05/03/22 08:07 Eos % (Auto) 1.2 % 05/03/22 08:07 Baso % (Auto) 1.0 % 05/03/22 08:07 Neut # (Auto) 4.87 10^3/uL (1.8-7.7) 05/03/22 08:07 Lymph # (Auto) 1.5 10^3/uL (0.8-4.8) 05/03/22 08:07 Sunflower # (Auto) 0.7 10^3/uL (0.2-0.9) 05/03/22 08:07 Eos # (Auto) 0.1 10^3/uL (0.0-0.8) 05/03/22 08:07 Baso # (Auto) 0.1 10^3/uL (0.0-0.1) 05/03/22 08:07 Nucleated RBC % (auto) 0 % 05/03/22 08:07 Nucleated RBCs # 0.0 /100WBC 05/03/22 08:07 PT 12.50 SECONDS (12.1-14.9) 05/03/22 08:07 INR 0.91 (0.8-1.2) 05/03/22 08:07 Sodium 135 mmol/L (136-145) L 04/26/22 10:20 Potassium 4.2 mmol/L (3.5-5.1) 04/26/22 10:20 Chloride 103 mmol/L (98-107) 04/26/22 10:20 Carbon Dioxide 21 mmol/L (22-29) L 04/26/22 10:20 Anion Gap 15.2 (5-19) 04/26/22 10:20 BUN 15 mg/dL (8-23) 04/26/22 10:20 Creatinine 1.0 mg/dL (0.7-1.2) 04/26/22 10:20 GFR Calculation 76.0 mL/min (90-130) L 04/26/22 10:20 Glucose 95 mg/dL (65-115) 04/26/22 10:20 Calculated Osmolality 281 mOsm/kg (285-295) L 04/26/22 10:20 Calcium 9.9 mg/dL (8.5-10.5) 04/26/22 10:20 Vitals Last Vital Signs Temp 97.5 F L 05/04/22 04:00 Pulse 63 05/04/22 04:00 Resp 17 05/04/22 04:00 BP 106/70 05/04/22 04:00 Pulse Ox 95 05/04/22 04:00 O2 Del Method 05/03/22 23:38 Discharge Plan Discharge Patient Disposition: Home Health Service Condition: Stable Prescriptions: New oxycodone 5 mg Tablet 5 mg PO Q4H PRN (Reason: Moderate Pain) 7 Days Qty: 40 0RF celecoxib 200 mg Capsule 200 mg PO Q12H 14 Days Qty: 28 0RF acetaminophen 500 mg Tablet 1,000 mg PO Q8H 14 Days Qty: 84 0RF gabapentin 300 mg Capsule 300 mg PO BID 7 Days Qty: 14 0RF Continued amlodipine 5 mg tablet 5 mg PO DAILY Qty: 90 3RF aspirin [Adult Low Dose Aspirin] 81 mg tablet,delayed release (DR/EC) 81 mg PO DAILY isosorbide mononitrate 30 mg tablet extended release 24 hr See Rx Instructions PO BID Qty: 125 3RF Rx Instructions: orally 1 tab in am and 1/2 tab in evening albuterol sulfate 90 mcg/actuation HFA aerosol inhaler 2 puff inhalation QID PRN (Reason: shortness of breath or wheezing) Qty: 8.5 0RF losartan 100 mg tablet 150 mg PO DAILY Qty: 135 3RF metoprolol tartrate 25 mg tablet 12.5 mg PO BID Qty: 90 3RF nitroglycerin 0.4 mg Tablet, Sublingual 0.4 mg SUBLINGUAL Q5M PRN (Reason: Chest Pain) Rx Instructions: do not exceed 3 doses per episode finasteride 5 mg Tablet 5 mg PO BEDTIME Held Xarelto 10 mg tablet 10 mg PO DAILY Qty: 90 0RF Hold Instructions: Resume on 05/08/22. Hold Xarelto until all drainage stopped Rx Instructions: Please fill on 340B Discontinued tramadol 50 mg tablet 50 mg PO Q6H PRN (Reason: pain) Qty: 30 0RF acetaminophen [Tylenol 8 Hour] 650 mg Tablet Extended Release 800 mg PO Q12H Discharge Orders: Discharge Order (Routine); Ordered 05/04/22 Ordered By: Fly Bangura Referrals: [facility] ([facility]) [Outside] Olivia Phillips FNP [Primary Care Provider] - Josse Alex FNP [Physician Telephone Engineer] - 05/07/22 10:30 am Discharge Diet: Advance as tolerated Discharge Activity: Limit activity as instructed Patient Instructions: Opioid Safety Activity Restrictions/Additional Instructions: Okay to shower Keep Tubigauze sleeve in place for swelling. Okay to remove for hygiene. Apply FirstIce up to 20 min/hr for pain and swelling Take Celebrex twice a day for the next 15 days for pain , discontinue other anti-inflammatories Take Neurontin twice a day for 7 days. Take Tylenol 500mg (2 tabs) as needed 3 times a day for mild pain take oxycodone for breakthrough pain. Exercises per physical therapy. May weight-bear as tolerated on total knee arthroplasty IF HAVE ANY PROBLEMS OR QUESTIONS CALL [facility] AT AND ASK TO HAVE DR. BANGURA PAGEClement. Discharge Attestations Time Spent in Discharge Care*: other Quality Metrics Clinical Quality Measures [ No reported AMI, CVA or VTE this stay] Coding Level of Care Code Acute Code for Chg Fwd
[2022-05-04] MEDS: losartan 50 mg Tablet 150 MG PO (08:57)
[2022-05-04] MEDS: gabapentin 300 mg Capsule PO (08:58)
[2022-05-04] MEDS: aspirin 81 mg EC Tablet PO (08:58)
[2022-05-04] MEDS: isosorbide mononitrate ER 30 mg Tablet PO (08:58)
[2022-05-04] MEDS: amlodipine 5 mg Tablet PO (08:58)
[2022-05-04] MEDS: sennosides-docusate Tablet 2 TAB PO (08:59)
[2022-05-04] MEDS: rivaroxaban 10 mg Tablet PO (08:59)
[2022-05-04] MEDS: metoprolol tartrate 25 mg Tablet 12.5 MG PO (08:59)
[2022-05-04] MEDS: CELEcoxib 200 mg Capsule PO (09:00)
--- NOTE | 2022-05-04 10:10 | PC.CHAP ---
Pastoral Care Encounter/Spiritual Assessment Type of Contact [] Declined general farm hand visit [] Patient/Family/Request visit [] Outpatient visit [] Follow-up visit [] Physician referral [] Code/Alert [x] Routine visit [] Staff referral [] Actively dying [] Patient sleeping [] Family support [] [] Out of room [] Palliative care [] [] Receiving care in room [] Pre-surgical visit [] Trauma [] Long length of stay [] ICU visit [] Other: Relational/Emotional Strength [x] Patient feels connected with others/family/visitors/staff [] Distress [] Loneliness/isolation [] Abandonment Spirituality of Patient [x] Person of Ruthie [] Attends Yarsanism of their Ruthie [] Believes in Prayer [] Reads Bible or Anglican materials [] There are Spiritual issues to be addressed 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 Hand Interventions [x] Prayer [x] Active listening [x] Non-anxious presence [x] Spiritual/emotional support [] Crisis/trauma care [] Spiritual counseling [] Bereavement support [] Provided bereavement packet [] Provided Bible/devotional materials [] Provided toy/stuffed animal, coloring book to patient or family member [] Provided Communion [] Anointing/[place] [] Salvation [x] Completed spiritual assessment [] Other: Impact on Illness or Injury [] Angry [] Fearful [] Anxious [] Often cries [] Exhaustion [] Unable to work [] Unable to attend denominational [] Unable to walk/stand [] Unable to read [] Unable to drive [] Unable to eat/drink [] Unable to sleep [] Unable to be with family [] Patient intubated [] Other: Summary Time spent with patient 10 min
--- NOTE | 2022-05-04 11:27 | PC.NURSE ---
Discharge Note Patient discharged to home via private vehicle accompanied by . Discharge instructions reviewed with patient and/or player services representative. Mobile pharmacy medications and/or prescriptions provided. Belongings/home medications returned.
== END 2022-05-04 11:27 | disposition home health service (06) ==
LOC: MEDSURG 12:24
PROVIDERS: Anesthesiology; Admitting Provider Orthopaedic Surgery; PCP Nurse Practitioner Family; Visit Provider Orthopaedic Surgery
PROC: (CPT 27447; principal; 2022-05-03 09:45)
DX: M17.12 Unilateral primary osteoarthritis, left knee (principal); J44.9 Chronic obstructive pulmonary disease, unspecified; I25.10 Atherosclerotic heart disease of native coronary artery without angina pectoris; Z95.5 Presence of coronary angioplasty implant and graft; I10 Essential (primary) hypertension; I25.2 Old myocardial infarction; Z86.718 Personal history of other venous thrombosis and embolism; Z79.82 Long term (current) use of aspirin; E78.5 Hyperlipidemia, unspecified
CPT/HCPCS: 27447; 36415; 51702; 73560; 80048; 85018; 85025; 85610; 97110; 97116; 97161; 97165; 97530; C1776; G0378; J0171; J0690; J1100; J1580; J1885; J2250; J2405; J2704; J2795; J3010; J3370; J7030

== ENCOUNTER 2022-05-19 10:47 | Inpatient (IN) | payer OTHER, SELFPAY ==
[2022-05-19] VITALS (14 sets, daily range): BP systolic 131–171; BP diastolic 83–108; PULSE 78–114; RESP 14–18; TEMP 36.4–36.9; O2SAT 92–100
[2022-05-19] MEDS: oxyCODONE 5 mg IR Tab/Cap PO ×2 (12:59→18:14)
[2022-05-19] MEDS: acetaminophen 500 mg Tablet 1000 MG PO ×2 (12:59→21:09)
[2022-05-19] MEDS: CELEcoxib 200 mg Capsule 400 MG PO (12:59)
[2022-05-19] MEDS: gabapentin 300 mg Capsule PO ×2 (12:59→18:15)
[2022-05-19] MEDS: sodium chloride 0.45% 1,000 ML 80 ML IV (13:00)
[2022-05-19] MEDS: sodium chloride 0.9% 1,000 ML 30 ML IV (14:41)
--- NOTE | 2022-05-19 14:44 | P.ANESUD_ITS ---
Pre-Anesthetic Update Pre-Anesthetic Assessment: Date of Surgery/Procedure: 05/19/22 Preop Brandy gnosis: Infection left total knee Proposed Procedure: Operation Date: 05/19/22 15:00 Proposed Procedures p Incision and Drainage(Left) - Fly Cline MD s Polyethelene Exchange Knee(Left) - Fly Cline MD Any changes to Pre-Anesthetic Assessment?: No Last Intake: Intake Last Liquid Date 05/19/22 Last Liquid Time 10:00 Last Solid Date 05/18/22 Last Solid Time 21:00 Vitals: Temperature 98.5 F 05/19/22 12:06 Temperature Source Oral 05/19/22 12:06 Pulse Rate 114 H 05/19/22 12:06 Respiratory Rate 16 05/19/22 12:59 Respiratory Effort Non-Labored 05/19/22 12:59 Respiratory Depth Normal 05/19/22 12:59 Respiratory Patter n 05/19/22 12:59 Blood Pressure 137/83 05/19/22 12:06 Blood Pressure Chey n 101 05/19/22 12:06 Pulse Oximetry 97 05/19/22 12:06 Oxygen Delivery Me thod 05/19/22 12:06 Exam: Pre-Anes Outpt Exam: alert, oriented x 3, clear to auscultation bilaterally and regular rate & rhythm Cardiac Studies: Echocardiogram 10/24/21
[2022-05-19] MEDS: HYDROmorphone 1 mg/mL INJ 1 mL 0.5 MG IVP (14:56)
[2022-05-19 15:31] LABS: Basophils # 0.1 10^3/uL (0.0-0.1); Basophils % 0.3 %; Hematocrit 36.1 % (42.0-52.0); Hemoglobin 12.1 g/dL (11.7-16.6); Lymphocytes # 1.2 10^3/uL (0.8-4.8); Lymphocytes % 7.2 %; Mean Corpuscular HGB Conc 33.5 g/dL (30.0-36.0); Mean Corpuscular Hemoglobin 30.7 pg (28.0-34.0); Mean Corpuscular Volume 91.6 fl (80-94); Mean Platelet Volume 10.9 fL (7.4-10.4); Monocytes # 2.1 10^3/uL (0.2-0.9); Monocytes % 12.9 %; Neutrophils # 12.54 10^3/uL (1.8-7.7); Neutrophils % 78.7 %; Nucleated Red Blood Cells % 0 %; Platelet Count 250 10^3/cmm (130-400); Red Blood Count 3.94 10^6/uL (4.1-5.3); Red Cell Distribution Width 13.7 % (12.1-15.1); White Blood Count 15.9 10^3/uL (4.0-10.0)
[2022-05-19 15:48] LABS: Alanine Aminotransferase 11 U/L (0-41); Albumin Level 3.5 g/dL (3.5-5.2); Alkaline Phosphatase 157 U/L (40-130); Anion Gap 16.9 (5-19); Aspartate Amino Transferase 15 U/L (0-40); Blood Urea Nitrogen 25 mg/dL (8-23); Calcium 10.3 mg/dL (8.5-10.5); Carbon Dioxide 20 mmol/L (22-29); Chloride 96 mmol/L (98-107); Globulin 3.9 g/dL (1.3-4.6); Glomerular Filtration Rate 44.2 mL/min (90-130); Glucose 110 mg/dL (65-115); Osmolality Calculated 273 mOsm/kg (285-295); Potassium 3.9 mmol/L (3.5-5.1); Sodium 129 mmol/L (136-145); Total Bilirubin 0.7 mg/dL (0.15-1.2); Total Protein 7.4 g/dL (6.6-8.7)
[2022-05-19] MEDS: tranexamic acid 1,000 mg/10mL SDV 1000 MG IV (16:29)
[2022-05-19] MEDS: vancomycin 1,000 MG SDV 1000 MG XX (16:51)
[2022-05-19] MEDS: HYDROmorphone 1 mg/mL INJ 1 mL IVP (16:56)
--- NOTE | 2022-05-19 17:12 | PM.OP ---
Operative Report Date of procedure: May 19, 2022 Pre-op diagnosis: Preop Diagnosis Suspected infection left total knee Post-op diagnosis: same Procedure done: Patient and debridement left knee with tibial insert exchange Implants: Size 6/14 mm thickness CR tibial insert Specimens removed/disposition: Routine and anaerobic cultures sent x3 Pathology: none sent Anesthesia: General Estimated blood loss (mL): 100 Tourniquet time (min): 43 Condition: stable Disposition: PACU Brief History: Mr. Garay is a 61-year-old male who underwent left total knee arthroplasty on 05/03/2022 who developed drainage from his left knee 3 days go. He was taken to the operating room today emergently for aggressive irrigation and debridement and deep culture Procedure: Patient was taken to the operating room and given a general anesthesia. His left lower extremity was prepped and draped in the usual fashion. A timeout was performed. It was inflated to 350 mmHg the knee was opened through the previous anterior scar.. Upon entering the knee he was noted to have extensive disruption of excess extensor retinaculum retinaculum from the inferior pole of the patella proximally to his incision. Hematoma was evacuated with suction. Remnants of suture from the extensor retinaculum, subcutaneous tissues, and skin were removed. Osteotome was used to elevate the tibial insert off of the tibia allowing access to the posterior knee. Synovitis was removed from the suprapatellar pouch medial lateral gutters. Routine and anaerobic cultures were obtained x3 within the wound. The knee was then irrigated with 6 L of saline. Vancomycin powder were placed in the posterior knee and medial lateral gutters. A new size 614 mm thickness tibial insert was then replaced. The extensor retinaculum was then closed with #1 strata fix suture and reinforced with #1 Vicryl suture. The skin and subcutaneous tissues were closed with interrupted #1 Prolene suture. Xeroflo gauze, 4 x 4's, Kerlex, cast padding, and a compressive Isaías wrap were applied. The patient was then taken to recovery room in stable condition.
[2022-05-19] MEDS: vancomycin 1,000 MG in sodium chloride 0.9% 250 ML 250 MG IV (17:28)
[2022-05-19 17:43] LABS: Basophils # 0.1 10^3/uL (0.0-0.1); Basophils % 0.4 %; Eosinophils % 0.1 %; Hematocrit 38.7 % (42.0-52.0); Hemoglobin 12.6 g/dL (11.7-16.6); Lymphocytes # 1.8 10^3/uL (0.8-4.8); Lymphocytes % 11.2 %; Mean Corpuscular HGB Conc 32.6 g/dL (30.0-36.0); Mean Corpuscular Hemoglobin 30.6 pg (28.0-34.0); Mean Corpuscular Volume 93.9 fl (80-94); Monocytes # 2.2 10^3/uL (0.2-0.9); Monocytes % 13.7 %; Neutrophils # 11.56 10^3/uL (1.8-7.7); Neutrophils % 73.3 %; Nucleated Red Blood Cells % 0 %; Platelet Count 244 10^3/cmm (130-400); Red Blood Count 4.12 10^6/uL (4.1-5.3); Red Cell Distribution Width 13.7 % (12.1-15.1); White Blood Count 15.8 10^3/uL (4.0-10.0)
[2022-05-19 17:54] LABS: Erythrocyte Sedimentation Rate 66 mm/hr (0-10)
[2022-05-19 18:00] LABS: C Reactive Protein 327.4 mg/L (0.0-4.9)
[2022-05-19 18:01] LABS: Anion Gap 17.1 (5-19); Blood Urea Nitrogen 26 mg/dL (8-23); Calcium 9.9 mg/dL (8.5-10.5); Carbon Dioxide 21 mmol/L (22-29); Chloride 96 mmol/L (98-107); Creatinine Clr Calc Pharmacy 44.9111; Glomerular Filtration Rate 34.1 mL/min (90-130); Glucose 108 mg/dL (65-115); Osmolality Calculated 275 mOsm/kg (285-295); Potassium 4.1 mmol/L (3.5-5.1); Sodium 130 mmol/L (136-145)
--- NOTE | 2022-05-19 18:03 | ANE.PACU2 ---
Inpatient post-anesthesia follow up: Airway intact: Yes Vital signs: Temperature 97.5 F Pulse Rate 85 Respiratory Rate 17 Blood Pressure 169/95 Pulse Oximetry 94 Oxygen Delivery Me thod Room Air Oxygen Flow Rate 6 Fraction of Inspir ed Oxygen Hydration adequate: Yes Nausea and vomiting: No Pain level: 1 Mental status: Baseline
[2022-05-19] MEDS: metoprolol tartrate 25 mg Tablet 12.5 MG PO (18:14)
[2022-05-19] MEDS: sennosides-docusate Tablet 2 TAB PO (18:14)
[2022-05-19] MEDS: sodium chloride 0.9% 1,000 ML 100 ML IV (18:16)
[2022-05-19] MEDS: isosorbide mononitrate ER 30 mg Tablet 15 MG PO (21:08)
[2022-05-19] MEDS: finasteride 5 mg Tablet PO (21:08)
[2022-05-19] MEDS: morphine 4 mg/mL SDV 1 mL 2 MG IVP (21:41)
--- NOTE | 2022-05-19 22:40 | PC.PHAR ---
Pharmacokinetic dosing service Date: 05/19/22 Time: 2239 Objective: Patient: Sander Garay Floor: [address]1 Age: 61 yo Serum creatinine: 2.0 mg/dL Height: 68.0 Inches Weight (kg): 102.058 Diagnosis: Relevant medical/social history: Cultures and sensitivities: Other labs: Assessment: IBW (kg): 68.40 Dosing wt(kg): 102.058 Estimated Creatinine clearance (ml/min): 37.5 CRCL method: Cockcroft and Gault using ibw(default). Drug selected: Vancomycin Loading dose (mg): 0 Vd (liters): 91.9 (factor used: 0.9 L/kg) Reinaldo (hr-1): 0.036 Half life (hrs): 19.25 Recommended dose: 1500 mg Interval: 24 hrs Infusion time (hrs): 1.5 Predicted peak (mcg/mL): 27.5 Predicted trough (mcg/mL): 12.23 Total body weight is being used for vancomycin dosing. Renal function is stable [ ] /unstable [ ] Recommendations: Give Vancomycin 1500 mg q 24 hrs with an expected Cpeak of 27.5 mcg/ml and an expected Ctrough of 12.23 mcg/ml Renal dosing of other antibiotics (review renal dosing of other medications and list guidelines here): Thank you for the consult, will continue to follow. Signature: Lyric Sylvester [facility]
[2022-05-20] VITALS: BP 100/65; PULSE 75; RESP 18; TEMP 36.5; O2SAT 95
[2022-05-20] MEDS: CELEcoxib 200 mg Capsule PO ×2 (01:10→13:51)
[2022-05-20 04:00] VITALS: BP 99/64; PULSE 74; RESP 18; TEMP 36.4; O2SAT 94
[2022-05-20 05:17] LABS: Basophils # 0.1 10^3/uL (0.0-0.1); Basophils % 0.6 %; Eosinophils # 0.1 10^3/uL (0.0-0.8); Eosinophils % 0.7 %; Hematocrit 32.3 % (42.0-52.0); Hemoglobin 10.5 g/dL (11.7-16.6); Lymphocytes # 1.1 10^3/uL (0.8-4.8); Lymphocytes % 9.8 %; Mean Corpuscular HGB Conc 32.5 g/dL (30.0-36.0); Mean Corpuscular Hemoglobin 30.7 pg (28.0-34.0); Mean Corpuscular Volume 94.4 fl (80-94); Mean Platelet Volume 10.8 fL (7.4-10.4); Monocytes # 1.8 10^3/uL (0.2-0.9); Monocytes % 16.3 %; Neutrophils # 7.89 10^3/uL (1.8-7.7); Neutrophils % 71.2 %; Nucleated Red Blood Cells % 0 %; Platelet Count 264 10^3/cmm (130-400); Red Blood Count 3.42 10^6/uL (4.1-5.3); Red Cell Distribution Width 14.1 % (12.1-15.1); White Blood Count 11.1 10^3/uL (4.0-10.0)
[2022-05-20] MEDS: acetaminophen 500 mg Tablet 1000 MG PO ×3 (05:22→21:25)
[2022-05-20] MEDS: vancomycin 1,500 MG/300 ML PIGGYBACK 200 MG IV (05:22)
[2022-05-20] MEDS: sodium chloride 0.9% 1,000 ML 100 ML IV ×2 (05:22→21:26)
[2022-05-20 05:30] LABS: Anion Gap 17.3 (5-19); Blood Urea Nitrogen 32 mg/dL (8-23); Calcium 9.1 mg/dL (8.5-10.5); Carbon Dioxide 19 mmol/L (22-29); Chloride 103 mmol/L (98-107); Glomerular Filtration Rate 34.1 mL/min (90-130); Glucose 141 mg/dL (65-115); Osmolality Calculated 289 mOsm/kg (285-295); Potassium 4.3 mmol/L (3.5-5.1); Sodium 135 mmol/L (136-145)
[2022-05-20 05:39] LABS: Creatinine Clr Calc Pharmacy 44.9111
--- NOTE | 2022-05-20 06:27 | PM.PN ---
Subjective Subjective: No complaints this morning, minimal pain. I questioned Mr. Garay as to possible mechanisms of how he could have tore his quadriceps repair. He is not a great historian but states that 1 week ago he attempted to sit down on a stool which is much lower than anticipated. He described his knee being driven into an extreme amount of flexion and feeling a pop over his anterior knee. Vitals/I&O/Wt Last Vital Signs Temp 97.6 F 05/20/22 04:00 Pulse 74 05/20/22 04:00 Resp 18 05/20/22 04:00 BP 99/64 05/20/22 04:00 Pulse Ox 94 05/20/22 04:00 O2 Del Method 05/20/22 04:00 O2 Flow Rate 6 05/19/22 17:25 05/19/22 05/19/22 05/20/22 14:59 22:59 06:59 Intake Total 240 / 240 3060 / 3300 1181.667 / 4481.667 Output Total 5 / 5 Balance 240 / 240 3055 / 3295 1181.667 / 4476.667 Weight last 48 hrs Weight 225 lb Physical Exam Narrative: Clean and dry. Data 05/20/22 05:02 05/20/22 05:02 Micro: Microbiology 05/19/22 17:28 Blood Culture - Preliminary Blood SPECIMEN COLLECTED 05/19/22 17:22 Blood Culture - Preliminary Blood SPECIMEN COLLECTED A&P Assessment and plan (1) Hematoma of left knee region: I suspect that Sander tore his quadriceps with a hyperflexion episode 1 week ago. Hematoma ultimately worked its way through the skin with a draining this Tuesday. Cultures at this point are pending. He had a very complicated course of a postoperative infection in the right knee and I want to be absolutely certain cultures are negative before discharge. Dr. Sewell has been consulted and will see the patient regarding antibiotic choices and the plan of care. Attestations Medical Necessity Statement*: Awaiting culture results Coding Level of Care Code Acute Code for g Fwd Diagnoses Hematoma of left knee region S80.02XA
[2022-05-20 07:46] VITALS: BP 105/63; PULSE 69; RESP 16; TEMP 36.4; O2SAT 92
[2022-05-20] MEDS: losartan 50 mg Tablet 150 MG PO (08:04)
[2022-05-20] MEDS: sennosides-docusate Tablet 2 TAB PO ×2 (08:04→17:40)
[2022-05-20] MEDS: metoprolol tartrate 25 mg Tablet 12.5 MG PO ×2 (08:05→17:41)
[2022-05-20] MEDS: amlodipine 5 mg Tablet PO (08:06)
[2022-05-20] MEDS: gabapentin 300 mg Capsule PO ×2 (08:06→17:41)
[2022-05-20] MEDS: isosorbide mononitrate ER 30 mg Tablet PO (08:06)
[2022-05-20] MEDS: aspirin 81 mg EC Tablet PO (08:07)
[2022-05-20] MEDS: oxyCODONE 5 mg IR Tab/Cap PO ×3 (08:14→17:40)
--- NOTE | 2022-05-20 10:45 | PM.CONSULT ---
Providers/Reason For Consult Consulting Physician/Specialty*: Amy Robertson MD / Infectious Disease Reason for Consult*: possible PJI Requesting Physician: Dr. Cline, orthopedics Attending Physician: Fly Cline MD Primary Care Provider: DONNIE Peralta History of Present Illness History of Present Illness Sander Garay is a 61 year old male with a PMH significant for OA, s/p right knee replacement 11/2020, complicated by PJI with CoNs diagnosed 09/2021 s/p treatment with ?IV vancomycin and then a 2 stage exchange. More recently patient underwent left total knee arthroplasty on 05/03/2022. HE tolerated procedure well and discharged next day, Post operatively he noticed some leaking from the incision but this stopped by 05/08 and all drains were discontinued. On 05/19, he was seen by ortho in follow up and found to have redness swelling and increasing serous drainage on this day. He reported subjective fever. Did not measure temperature but states he was hot enough to ham an egg . One week prior to this follow up, he recalled sitting down on a stool which was much lower than anticipated.? He described his knee being driven into an extreme amount of flexion and feeling a pop over his anterior knee. He was admitted for and is now s/p incision and debridement left knee with tibial insert exchange on 05/19. Or cx remain pending at this time. Notable labs are leukocytosis of 15, elevated CRP > 300 and esr 66. he is afebrile since admission. started on vancomycin post operatively. Review of Systems General: Reports: 10 or more systems reviewed and unremarkable except in HPI and below Const: Denies: fever(s), chills or body aches Eyes: Denies: change in vision, blurry vision or photophobia ENMT: Reports: hoarseness; Denies: throat pain, enlarged tonsils, odynophagia or nasal congestion Card: Denies: chest pain, palpitations, irregular heart rhythm, edema, swelling of feet/ankles, lightheadedness, pre-syncope, dyspnea on exertion or orthopnea Resp: Denies: dyspnea, productive cough, non-productive cough, wheezing, stridor, pain on inspiration, change in phlegm color, hemoptysis or chest congestion GI: Denies: abdominal pain, nausea, vomiting, hematemesis, coffee ground emesis, dysphagia, heartburn, diarrhea, constipation, GI cramping, change in stool character, hematochezia or melena : Denies: flank pain, dysuria, urinary frequency, urinary urgency, urinary hesitancy or hematuria Musc: Denies: neck pain, back pain, extremity pain, joint swelling, joint warmth or deformity Neuro: Denies: headache(s), numbness in extremities, weakness in extremities, sensory changes, difficulty walking, frequent falls, dizziness, vertigo, behavioral changes, Slurred speech present or seizure-like activity Psych: Denies: anxiety, depression, suicidal ideation or homicidal ideation Endo: Denies: polyuria, polydipsia, tired all the time, cold intolerance or hot flashes Alec/Lymph: Denies: easy bruising or easy bleeding Medications/Allergies Home Medications Medication Instructions Recorded Confirmed Last Taken Type aspirin 81 mg tablet,delayed 81 mg PO DAILY 12/19/19 05/19/22 04/20/22 History release (Adult Low Dose Aspirin) losartan 100 mg tablet 150 mg PO DAILY #135 tabs 07/20/21 05/19/22 05/18/22 Rx finasteride 5 mg tablet 5 mg PO BEDTIME 10/24/21 05/19/22 04/26/22 History metoprolol tartrate 25 mg tablet 12.5 mg PO BID #90 tabs 12/21/21 05/19/22 05/18/22 Rx isosorbide mononitrate 30 mg See Rx Instructions PO BID #125 02/10/22 05/19/22 05/18/22 Rx tablet,extended release 24 hr tabs amlodipine 5 mg tablet 5 mg PO DAILY #90 tabs 03/11/22 05/19/22 04/26/22 Rx rivaroxaban 10 mg tablet (Xarelto) 10 mg PO DAILY #90 tabs 04/05/22 05/19/22 05/16/22 Rx nitroglycerin 0.4 mg sublingual 0.4 mg sublingual Q5M PRN Chest 04/26/22 05/19/22 02/10/22 History tablet Pain gabapentin 300 mg capsule 300 mg PO BID #14 caps 05/04/22 05/19/22 05/18/22 Rx oxycodone 5 mg tablet 5 mg PO Q4H PRN pain #40 tabs 02/10/1705/19/22 05/18/22 Rx Allergies Allergy/AdvReac Type Severity Reaction Status Date / Time doxycycline Allergy ADR-Itching Verified 05/19/22 10:21 Current Medications Generic Name Dose Route Start Last Admin Trade Name Karson PRN Reason Stop Dose Admin Acetaminophen 1,000 mg 05/19/22 21:00 05/20/22 21:25 Acetaminophen 500 Mg Tablet PO 1,000 mg Q8H MIKE Administration Amlodipine Besylate 5 mg 05/20/22 09:00 05/20/22 08:06 Amlodipine 5 Mg Tablet PO 5 mg DAILY MIKE Administration Aspirin 81 mg 05/20/22 09:00 05/20/22 08:07 Aspirin 81 Mg Ec Tablet PO 81 mg DAILY MIKE Administration Celecoxib 200 mg 05/20/22 01:00 05/20/22 13:51 Celecoxib 200 Mg Capsule PO 200 mg Q12H MIKE Administration Finasteride 5 mg 05/19/22 21:00 05/20/22 21:25 Finasteride 5 Mg Tablet PO 5 mg BEDTIME MIKE Administration Gabapentin 300 mg 05/19/22 18:00 05/20/22 17:41 Gabapentin 300 Mg Capsule PO 300 mg BID MIKE Administration Sodium Chloride 1,000 mls @ 100 mls/hr 05/19/22 17:36 05/20/22 21:26 Sodium Chloride 0.9% IV 100 mls/hr .Q10H MIKE Administration Vancomycin/PEG/NADA/Lysine/Water 1,500 mg in 300 mls @ 200 mls/hr 05/20/22 05:00 05/20/22 07:13 Vancocin IV Infused Q24H MIKE Infusion Isosorbide Mononitrate 30 mg 05/20/22 09:00 05/20/22 08:06 Isosorbide Mononitrate Er 30 Mg Tablet PO 30 mg DAILY MIKE Administration Isosorbide Mononitrate 15 mg 05/19/22 21:00 05/20/22 21:25 Isosorbide Mononitrate Er 30 Mg Tablet PO 15 mg QPM@2100 MIKE Administration Losartan Potassium 150 mg 05/20/22 09:00 05/20/22 08:04 Losartan 50 Mg Tablet PO 150 mg DAILY MIKE Administration Metoprolol Tartrate 12.5 mg 05/19/22 18:00 05/20/22 17:41 Metoprolol Tartrate 25 Mg Tablet PO 12.5 mg BID MIKE Administration Morphine Sulfate 2 mg 05/19/22 17:36 05/19/22 21:41 Morphine 4 Mg/Ml Sdv 1 Ml IVP 2 mg Q1H PRN Administration BREAKTHROUGH PAIN Oxycodone HCl 5 mg 05/19/22 17:36 05/20/22 17:40 Oxycodone 5 Mg Ir Tab/Cap PO 5 mg Q4H PRN Administration pain Senna/Docusate Sodium 2 tab 05/19/22 18:00 05/20/22 17:40 Sennosides-Docusate Tablet PO 2 tab BID MIKE Administration PFSH Acute PFSH: Medical History CAD (coronary artery disease) DVT (deep venous thrombosis) History of 2019 novel coronavirus disease (COVID-19) HTN (hypertension) Hyperlipidemia Iron deficiency anemia Lower extremity edema Surgical History H/O knee surgery S/P tonsillectomy and adenoidectomy Status post revision of total replacement of right knee Family History Mother CAD (coronary artery disease) Hypertension Father Cancer Hypertension Lung disease Stroke Family/Other Diabetes Hyperlipidemia Hypertension Denies family history of Dementia Chronic kidney disease (CKD) Social History Smoking and tobacco status: former smoker Alcohol intake: never Adopted: No Lives independently: Yes Household members: spouse and family Housing: House Marital status: Vitals/I&O/Wt Last Vital Signs Temp 99.6 F 05/20/22 22:58 Pulse 82 05/20/22 22:58 Resp 22 H 05/20/22 22:58 BP 142/77 05/20/22 22:58 Pulse Ox 94 05/20/22 22:58 O2 Del Method 05/20/22 22:58 O2 Flow Rate 6 05/19/22 17:25 05/20/22 05/20/22 05/21/22 14:59 22:59 06:59 Intake Total 660 / 660 1840 / 2500 Balance 660 / 660 1840 / 2500 Weight last 48 hrs Weight 102.058 kg Physical Exam Narrative: General: No acute distress, AO x3 HEENT: PERRLA, pupils bilaterally equal and reactive, pallors not present Chest: Normal vesicular breath sounds, no added sounds, equal good air entry bilaterally CVS: S1-S2 regular, no murmurs, no tachycardia, no gallops, no rubs Abdomen: Soft, nontender, no organomegaly, bowel sounds present Neuro: No focal deficits, no facial deformity, AO x3, power 5/5 in all limbs EXT: left knee in surgical bandages, not opened for exam Data 05/20/22 05:02 05/20/22 05:02 Micro: Microbiology 05/19: Blood cx : NGTD 05/19: wound cx (OR) : pending A&P Assessment and plan (1) Status post left knee replacement: (2) Prosthetic joint infection: (3) Hematoma of left knee region: Plan Patient with recent left knee replacement p/w fever, redness and drainage from left knee with elevated inflammatory markers. He has evidence of wound dehscence likely from mechanical trauma but also concern for early PJI. S/p I&D with insert exchange on 05/19 Blood cx thus far NGTD pending OR cx Currently on emepiric iv vancomycin which can continue Will await final OR cultures to decide further course of action Consult Attestations Medical Necessity Statement: per admitting note Coding Level of Care Code Acute Code for Chg Fwd High MDM includes number and complexity of problems actively addressed during encounter, amount and/or complexity of data reviewed/ordered and described risk of complication, morbidity or mortality of management as documented Diagnoses Status post left knee replacement Z96.652 Prosthetic joint infection T84.50XA Hematoma of left knee region S80.02XA
[2022-05-20 11:41] VITALS: BP 120/69; PULSE 80; RESP 16; TEMP 36.4; O2SAT 93
--- NOTE | 2022-05-20 12:30 | PC.CHAP ---
Pastoral Care Encounter/Spiritual Assessment Type of Contact [] Declined form layer visit [] Patient/Family/Request visit [] Outpatient visit [] Follow-up visit [] Physician referral [] Code/Alert [x] Routine visit [] Staff referral [] Actively dying [] Patient sleeping [] Family support [] [] Out of room [] Palliative care [] [x] Receiving care in room [] Pre-surgical visit [] Trauma [] Long length of stay [] ICU visit [] Other: Relational/Emotional Strength [x] Patient feels connected with others/family/visitors/staff [] Distress [] Loneliness/isolation [] Abandonment Spirituality of Patient [x] Person of Ruthie [] Attends Mormon of their Ruthie [] Believes in Prayer [] Reads Bible or Amish materials [] There are Spiritual issues to be addressed 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 Interventions [x] Prayer [x] Active listening [x] Non-anxious presence [x] Spiritual/emotional support [] Crisis/trauma care [x] Spiritual counseling [] Bereavement support [] Provided bereavement packet [] Provided Bible/devotional materials [] Provided toy/stuffed animal, coloring book to patient or family member [] Provided Communion [] Anointing/[place] [] Salvation [x] Completed spiritual assessment [] Other: Impact on Illness or Injury [] Angry [] Fearful [] Anxious [] Often cries [] Exhaustion [] Unable to work [] Unable to attend rastafari [] Unable to walk/stand [] Unable to read [] Unable to drive [] Unable to eat/drink [] Unable to sleep [] Unable to be with family [] Patient intubated [] Other: Summary he says he is feeling good and well be going Time spent with patient 10 mins
[2022-05-20 16:57] VITALS: BP 111/70; PULSE 91; RESP 16; TEMP 36.9; O2SAT 94
--- NOTE | 2022-05-20 19:47 | PC.NURSE ---
Patient A&Ox4, VSS at this time. Lungs clear upon auscultation, saturating in 90s on room air. Bowel sounds present in all four quadrants, patient reports 1 bowel movement earlier today. Patient tolerated activity to restroom well using walker, weight bearing as tolerated on left knee. Had 1 void while up to restroom. Dressing dry and intact upon viewing by this nurse. Patient reports no other skin issues other than his knee. Patient stated that he was not in pain. Nurse educated patient to report any pain and discussed pain control with patient. Bed sheets were smoothed, trash removed from patient's table, and patient reported no further needs at this time. Call light was given to patient, bed locked in lowest position with two side rails up and bedside table within reach. Patient left resting in semi-ott position watching television, stated no further needs at this time.
[2022-05-20] MEDS: isosorbide mononitrate ER 30 mg Tablet 15 MG PO (21:25)
[2022-05-20] MEDS: finasteride 5 mg Tablet PO (21:25)
--- NOTE | 2022-05-20 22:01 | PM.CONSULT ---
Providers/Reason For Consult Consulting Physician/Specialty*: Dr. House/internal medicine Reason for Consult*: Medical comorbidities, discharge planning Requesting Physician: Dr. Cline Attending Physician: Fly Cline MD Primary Care Provider: DONNIE Peralta History of Present Illness History of Present Illness Sander Garay is a 61 year old male with past medical history of CAD, post PCI to RCA, hypertension, DVT on chronic anticoagulation with Xarelto right knee prosthetic infection for which he required two-stage exchange along with completion of treatment with IV vancomycin in November 2021 was supposed to be on chronic suppression left knee replacement on 05/04 was admitted to orthopedic team on 05/19 for possible wound dehiscence and increased bleeding to the suture line along with serosanguineous discharge. Patient underwent debridement of the left knee with tibial insert exchange on 05/19. Medicine was consulted for management of medical comorbidities. Infectious disease has been consulted through primary team for further management of prosthetic joint infection Review of Systems General: Reports: 10 or more systems reviewed and unremarkable except in HPI and below Const: Denies: fever(s), chills, body aches, change in appetite, change in weight, malaise, night sweats, diaphoresis, change in sleep pattern, daytime sleepiness or snoring Eyes: Denies: change in vision, blurry vision, photophobia, eye discomfort or eye discharge ENMT: Denies: throat pain, enlarged tonsils, hoarseness, mouth pain, oral sores, dry mouth, tinnitus, nasal congestion or post nasal drip Card: Denies: chest pain, palpitations, irregular heart rhythm, edema, swelling of feet/ankles, lightheadedness, syncope, pre-syncope, dyspnea on exertion, orthopnea, leg pain with exertion or acrocyanosis Resp: Denies: dyspnea, productive cough, non-productive cough, wheezing, stridor, pain on inspiration, change in phlegm color, hemoptysis or chest congestion GI: Denies: abdominal pain, nausea, vomiting, hematemesis, coffee ground emesis, dysphagia, heartburn, diarrhea, constipation, bloating, GI cramping, change in bowel habits, pain on defecation, hematochezia or melena : Denies: flank pain, difficulty urinating, dysuria, urinary frequency, urinary urgency, urinary hesitancy, urinary dribbling, difficulty starting urination, change in urine stream, nocturia or hematuria Musc: Denies: neck pain, back pain, extremity pain, joint pain, joint swelling, joint redness, joint stiffness or limited range of motion Neuro: Denies: headache(s), numbness in extremities, weakness in extremities, sensory changes, lack of coordination, difficulty walking, frequent falls, dizziness, vertigo, confusion, Slurred speech present, difficulty communicating thoughts or seizure-like activity Psych: Denies: anxiety, depression, mood swings, panic attacks, hopelessness or irritability Endo: Denies: polyuria, polydipsia, tired all the time, cold intolerance, excessive sweating, flushing or heat intolerance Alec/Lymph: Denies: easy bruising or easy bleeding All/Imm: Denies: tongue swelling, facial swelling or acute wheezing Medications/Allergies Home Medications Medication Instructions Recorded Confirmed Last Taken Type aspirin 81 mg tablet,delayed 81 mg PO DAILY 12/19/19 05/19/22 04/20/22 History release (Adult Low Dose Aspirin) losartan 100 mg tablet 150 mg PO DAILY #135 tabs 07/20/21 05/19/22 05/18/22 Rx finasteride 5 mg tablet 5 mg PO BEDTIME 10/24/21 05/19/22 04/26/22 History metoprolol tartrate 25 mg tablet 12.5 mg PO BID #90 tabs 12/21/21 05/19/22 05/18/22 Rx isosorbide mononitrate 30 mg See Rx Instructions PO BID #125 02/10/22 05/19/22 05/18/22 Rx tablet,extended release 24 hr tabs amlodipine 5 mg tablet 5 mg PO DAILY #90 tabs 03/11/22 05/19/22 04/26/22 Rx rivaroxaban 10 mg tablet (Xarelto) 10 mg PO DAILY #90 tabs 04/05/22 05/19/22 05/16/22 Rx nitroglycerin 0.4 mg sublingual 0.4 mg sublingual Q5M PRN Chest 04/26/22 05/19/22 02/10/22 History tablet Pain gabapentin 300 mg capsule 300 mg PO BID #14 caps 05/04/22 05/19/22 05/18/22 Rx oxycodone 5 mg tablet 5 mg PO Q4H PRN pain #40 tabs 05/04/22 05/19/22 05/18/22 Rx Allergies Allergy/AdvReac Type Severity Reaction Status Date / Time doxycycline Allergy ADR-Itching Verified 05/19/22 10:21 Current Medications Generic Name Dose Route Start Last Admin Trade Name Karson PRN Reason Stop Dose Admin Acetaminophen 1,000 mg 05/19/22 21:00 05/20/22 21:25 Acetaminophen 500 Mg Tablet PO 1,000 mg Q8H MIKE Administration Amlodipine Besylate 5 mg 05/20/22 09:00 05/20/22 08:06 Amlodipine 5 Mg Tablet PO 5 mg DAILY MIKE Administration Aspirin 81 mg 05/20/22 09:00 05/20/22 08:07 Aspirin 81 Mg Ec Tablet PO 81 mg DAILY MIKE Administration Celecoxib 200 mg 05/20/22 01:00 05/20/22 13:51 Celecoxib 200 Mg Capsule PO 200 mg Q12H MIKE Administration Finasteride 5 mg 05/19/22 21:00 05/20/22 21:25 Finasteride 5 Mg Tablet PO 5 mg BEDTIME MIKE Administration Gabapentin 300 mg 05/19/22 18:00 05/20/22 17:41 Gabapentin 300 Mg Capsule PO 300 mg BID MIKE Administration Sodium Chloride 1,000 mls @ 100 mls/hr 05/19/22 17:36 05/20/22 21:26 Sodium Chloride 0.9% IV 100 mls/hr .Q10H MIKE Administration Vancomycin/PEG/NADA/Lysine/Water 1,500 mg in 300 mls @ 200 mls/hr 05/20/22 05:00 05/20/22 07:13 Vancocin IV Infused Q24H MIKE Infusion Isosorbide Mononitrate 30 mg 05/20/22 09:00 05/20/22 08:06 Isosorbide Mononitrate Er 30 Mg Tablet PO 30 mg DAILY MIKE Administration Isosorbide Mononitrate 15 mg 05/19/22 21:00 05/20/22 21:25 Isosorbide Mononitrate Er 30 Mg Tablet PO 15 mg QPM@2100 MIKE Administration Losartan Potassium 150 mg 05/20/22 09:00 05/20/22 08:04 Losartan 50 Mg Tablet PO 150 mg DAILY MIKE Administration Metoprolol Tartrate 12.5 mg 05/19/22 18:00 05/20/22 17:41 Metoprolol Tartrate 25 Mg Tablet PO 12.5 mg BID MIKE Administration Morphine Sulfate 2 mg 05/19/22 17:36 05/19/22 21:41 Morphine 4 Mg/Ml Sdv 1 Ml IVP 2 mg Q1H PRN Administration BREAKTHROUGH PAIN Oxycodone HCl 5 mg 05/19/22 17:36 05/20/22 17:40 Oxycodone 5 Mg Ir Tab/Cap PO 5 mg Q4H PRN Administration pain Senna/Docusate Sodium 2 tab 05/19/22 18:00 05/20/22 17:40 Sennosides-Docusate Tablet PO 2 tab BID MIKE Administration PFSH Acute PFSH: Medical History CAD (coronary artery disease) DVT (deep venous thrombosis) History of 2019 novel coronavirus disease (COVID-19) HTN (hypertension) Hyperlipidemia Iron deficiency anemia Lower extremity edema Surgical History H/O knee surgery S/P tonsillectomy and adenoidectomy Status post revision of total replacement of right knee Family History Mother CAD (coronary artery disease) Hypertension Father Cancer Hypertension Lung disease Stroke Family/Other Diabetes Hyperlipidemia Hypertension Denies family history of Dementia Chronic kidney disease (CKD) Social History Smoking and tobacco status: former smoker Alcohol intake: never Adopted: No Lives independently: Yes Household members: spouse and family Housing: House Marital status: Vitals/I&O/Wt Last Vital Signs Temp 98.4 F 05/20/22 16:57 Pulse 91 05/20/22 16:57 Resp 16 05/20/22 16:57 BP 111/70 05/20/22 16:57 Pulse Ox 94 05/20/22 16:57 O2 Del Method 05/20/22 04:00 O2 Flow Rate 6 05/19/22 17:25 05/20/22 05/20/22 05/20/22 06:59 14:59 22:59 Intake Total 1181.667 / 4481.667 660 / 660 1840 / 2500 Balance 1181.667 / 4476.667 660 / 660 1840 / 2500 Weight last 48 hrs Weight 102.058 kg Physical Exam Narrative: General: No acute distress, AO x3 HEENT: PERRLA, pupils bilaterally equal and reactive, pallors not present Chest: Normal vesicular breath sounds, no added sounds, equal good air entry bilaterally CVS: S1-S2 regular, no murmurs, no tachycardia, no gallops, no rubs Abdomen: Soft, nontender, no organomegaly, bowel sounds present Neuro: No focal deficits, no facial deformity, AO x3, power 5/5 in all limbs EXT: left knee in surgical bandages, not opened for exam Data 05/20/22 05:02 05/20/22 05:02 Micro: Microbiology 05/19/22 17:28 Blood Culture - Preliminary Blood NEGATIVE TO DATE 05/19/22 17:22 Blood Culture - Preliminary Blood NEGATIVE TO DATE 05/19/22 16:42 Gram Stain - Final Leg - Left Wound Culture - Preliminary Coag positive Staphylococcus 05/19/22 16:42 Gram Stain - Final Leg - Left Wound Culture - Preliminary Coag positive Staphylococcus 05/19/22 16:42 Gram Stain - Final Leg - Left Wound Culture - Preliminary Coag positive Staphylococcus A&P Assessment and plan (1) Infection of total left knee replacement: Postdebridement and joint exchange on 05/19. Follow-up OR wound culture and blood culture. Treatment as per primary team and ID team. Physical therapy, incentive spirometry. Pain management, physical therapy as per primary team. Patient will require IV medications with PICC line for at least 6. Will confirm with ID team. (2) Acute kidney injury: With history of bilateral renal stones. Could be secondary to infection versus poor oral intake. Medical administration done for nephrotoxic drugs. Hold off on losartan. Check urinalysis, urine creatinine, urine lites. CT abdomen pelvis to rule out obstructive nephropathy. Strict input output charting. Daily BMP. (3) Bilateral nephrolithiasis: (4) On anticoagulant therapy: On chronic Xarelto for DVT. Continue once okay with orthopedic team. (5) HTN (hypertension): Goal blood pressure less than 140/90 mmHg. Takes amlodipine 5 mg, Imdur, losartan 150 mg, metoprolol 12.5 mg twice daily. Holding off on losartan given DAIN. Uptitrate as for goal blood pressures. Qualifiers: Hypertension type: essential hypertension Qualified Code(s): I10 - Essential (primary) hypertension (6) CAD (coronary artery disease): Post PCI to LCx with chronic total occlusion of RCA. No active chest pain. Last cardiac angiogram on 10/16. Last echocardiogram from September 2021 shows an EF of 45% with grade 1 diastolic dysfunction with moderate hypokinesia of inferior basal and mid inferior wall. Continue with home dose of aspirin, beta-stefano. Not on statins. Check A1c, lipid panel. Start on statin accordingly. Qualifiers: Associated angina: without angina Coronary Disease-Associated Artery/Lesion type: [place] artery [place] vs. transplanted heart: [place] heart Qualified Code(s): I25.10 - Atherosclerotic heart disease of [place] coronary artery without angina pectoris Plan Full code. Cardiac diet. Anticoagulation as per primary team. Foot pumps. Discharge planning: Plan to discharge on long-term IV antibiotics for at least 6 weeks through PICC line at home with home health versus SNF. Case management consult. Consult Attestations Medical Necessity Statement: As per primary team for prosthetic joint infection, acute kidney injury Diagnoses Infection of total left knee replacement T84.54XA Acute kidney injury N17.9 Bilateral nephrolithiasis N20.0 On anticoagulant therapy Z79.01 HTN (hypertension) I10 Hypertension type: essential hypertension CAD (coronary artery disease) I25.10 Associated angina: without angina Coronary Disease-Associated Artery/Lesion type: [place] artery [place] vs. transplanted heart: [place] heart
[2022-05-20 22:58] VITALS: BP 142/77; PULSE 82; RESP 22; TEMP 37.6; O2SAT 94
[2022-05-21] VITALS (9 sets, daily range): BP systolic 119–164; BP diastolic 68–84; PULSE 74–84; RESP 16–28; TEMP 36.4–37.6; O2SAT 90–95
--- NOTE | 2022-05-21 00:05 | CT_ITS ---
WS: [id number] CT ABDOMEN PELVIS TECHNIQUE: Noncontrast CT of the abdomen and pelvis with coronal and sagittal reformatted images. CLINICAL INFORMATION: thee, h/o renal stones COMPARISON: None. DLP: 938.[address] scans at [facility] use at least one of these dose optimization techniques: automated e xposure control; mA and/or kV adjustment per patient size (includes targeted exams where dose is matc hed to clinical indication); or iterative reconstruction. FINDINGS: Moderate esophageal hiatal hernia. Lung bases are well aerated. Noncontrast liver is normal. Mild hep atomegaly. Mild splenomegaly. Noncontrast pancreas is normal. Adrenal glands are normal. Normal calib er abdominal aorta. Mild aortic calcification. Adrenal glands are normal. Bilateral nonobstructing ca lyceal tip calculi. Small LEFT renal cortical cyst measuring 2.4 cm. No obstructing renal or ureteral calculi. Prostate measures 3.9 CM. Urine distended bladder. Normal sigmoid colon. Normal appendix in the RIGHT lower quadrant. Gallbladder is contracted. Grade 1 anterolisthesis L5 on S1. Chronic spondylolysis L5-S1. Chronic kae earing mild compression of the L2 inferior endplate. Slight retrolisthesis L2 on L3. CT/CT abdomen pelvis wo con [id number] IMPRESSION: 1. Bilateral small nonobstructing calyceal tip calculi. No hydronephrosis in e ither kidney. Both ureters are decompressed. 2. No obstructing renal or ureteral calculi. 3. Mild hepatomegaly and splenomegaly. 4. Moderate esophageal hiatal hernia. 5. Urine distended bladder. 6. Grade 1 anterolisthesis L5 on S1 with chronic spondylolysis.
--- NOTE | 2022-05-21 00:06 | US_ITS ---
WS: [id number] RENAL ULTRASOUND HISTORY: evaluate for hydronephrosis COMPARISON: 02/15/2022 TECHNIQUE: 2-D and color Doppler imaging of the kidney submitted. Right kidney: 12.9 cm x 5.8 cm x 5.6 cm. Normal size kidney. No hydronephrosis. Echogenic foci with shadowing consistent with nephrolithiasis. No obstruction. No cortical thinning. Left kidney: 11.7 cm x 6.5 cm x 5.0 cm. Normal size kidney with normal echogenicity. No hydronephrosis. Echogenic foci with shadowing from no nobstructing nephrolithiasis. Aorta: Normal. Urinary Bladder: Minimally distended bladder. Normal size prostate gland. US/US renal BI* [id number] IMPRESSION: 1. Normal size kidneys with no hydronephrosis. 2. Bilateral nonobstructing nephrolithiasis.
[2022-05-21] MEDS: vancomycin 1,500 MG/300 ML PIGGYBACK 200 MG IV (05:16)
[2022-05-21] MEDS: acetaminophen 500 mg Tablet 1000 MG PO ×3 (05:16→22:22)
[2022-05-21] MEDS: sodium chloride 0.9% 1,000 ML 100 ML IV (05:17)
[2022-05-21 06:53] LABS: Alanine Aminotransferase 17 U/L (0-41); Alkaline Phosphatase 133 U/L (40-130); Anion Gap 15.1 (5-19); Aspartate Amino Transferase 18 U/L (0-40); Blood Urea Nitrogen 21 mg/dL (8-23); Calcium 9.7 mg/dL (8.5-10.5); Carbon Dioxide 19 mmol/L (22-29); Chloride 104 mmol/L (98-107); Globulin 3.4 g/dL (1.3-4.6); Glomerular Filtration Rate 68.1 mL/min (90-130); Glucose 108 mg/dL (65-115); Iron 15 ug/dL (59-158); Osmolality Calculated 282 mOsm/kg (285-295); Percent Saturation 9.9 % (20-50); Potassium 4.1 mmol/L (3.5-5.1); Sodium 134 mmol/L (136-145); Thyroid Stimulating Hormone 1.48 uIU/mL (0.27-4.20); Total Bilirubin 0.5 mg/dL (0.15-1.2); Total Iron Binding Capacity 151 mcg/dl; Total Protein 6.4 g/dL (6.6-8.7); Unsaturated Iron Binding 136 ug/dL (112-347); Vitamin B12 333 pg/mL (232-1245)
[2022-05-21 06:55] LABS: Folate Level 3.6 ng/mL (4.5-32.2)
[2022-05-21] MEDS: isosorbide mononitrate ER 30 mg Tablet PO ×3 (08:24→22:26)
[2022-05-21] MEDS: gabapentin 300 mg Capsule PO ×2 (08:24→18:40)
[2022-05-21] MEDS: aspirin 81 mg EC Tablet PO (08:24)
[2022-05-21] MEDS: metoprolol tartrate 25 mg Tablet 12.5 MG PO ×2 (08:24→18:40)
[2022-05-21] MEDS: sennosides-docusate Tablet 2 TAB PO ×2 (08:24→18:41)
[2022-05-21] MEDS: amlodipine 5 mg Tablet PO (08:25)
[2022-05-21] MEDS: oxyCODONE 5 mg IR Tab/Cap PO ×4 (08:25→22:22)
[2022-05-21 09:42] LABS: Urine Creatinine 81 mg/dL (39-259)
--- NOTE | 2022-05-21 10:45 | PM.PN ---
Subjective Subjective: No active complaint Telemetry services were used to speak with Dr. Robertson Knee culture showing Staphylococcus most likely MRSA Blood cultures negative Afebrile Pain well managed Vitals/I&O/Wt Last Vital Signs Temp 97.6 F 05/21/22 07:36 Pulse 74 05/21/22 07:36 Resp 16 05/21/22 08:25 BP 137/79 05/21/22 07:36 Pulse Ox 95 05/21/22 08:25 O2 Del Method 05/21/22 04:45 O2 Flow Rate 6 05/19/22 17:25 05/20/22 05/21/22 05/21/22 22:59 06:59 14:59 Intake Total 1840 / 2500 2335 / 4835 240 / 240 Output Total 400 / 400 Balance 1840 / 2500 1935 / 4435 240 / 240 Weight last 48 hrs Weight 102.058 kg Physical Exam Narrative: Laying supine No active complaint Pleasant and cooperative Room air S1, S2 Euvolemic Knee covered with dressing No active drainage Abdomen soft Data 05/20/22 05:02 05/21/22 05:25 Micro: Microbiology 05/19/22 17:28 Blood Culture - Preliminary Blood NEGATIVE TO DATE 05/19/22 17:22 Blood Culture - Preliminary Blood NEGATIVE TO DATE 05/19/22 16:42 Gram Stain - Final Leg - Left Wound Culture - Preliminary Coag positive Staphylococcus 05/19/22 16:42 Gram Stain - Final Leg - Left Wound Culture - Preliminary Coag positive Staphylococcus 05/19/22 16:42 Gram Stain - Final Leg - Left Wound Culture - Preliminary Coag positive Staphylococcus A&P Assessment and plan (1) Acute kidney injury: (2) Hematoma of left knee region: (3) Infection of total left knee replacement: (4) Transition of care: (5) Status post left knee replacement: Plan Recent left knee replacement with evidence of wound dehiscence from mechanical trauma status post I&D with insert exchange 05/19 Blood cultures negative Wound culture showing Staphylococcus most likely MRSA Currently on IV vancomycin Afebrile We will follow ID Patient will need 4 to 6 weeks of IV antibiotics he might be able to IV antibiotics on his own DAIN: Resolved with IV fluid hydration Patient will be able to go home once we have vancomycin approval, casework manager updated Continue regular diet For neuropathic pain continue gabapentin Discontinue IV fluids Attestations Medical Necessity Statement*: Continue medical management Coding Level of Care Code 29850 Diagnoses Acute kidney injury N17.9 Hematoma of left knee region S80.02XA Infection of total left knee replacement T84.54XA Transition of care Status post left knee replacement Z96.652
[2022-05-21 12:25] LABS: Add Urine Microscopic? NO; Charge for UA Resulting for Rev
[2022-05-21 12:35] LABS: Bilirubin Urine Neg (Negative); Blood Urine Neg (Negative); Glucose Urine UA Norm (Normal); Ketones Urine Negative (Negative); Leukocyte Esterase Urine Negative (Negative); Nitrate Urine Negative (Negative); Protein Urine Neg (Negative); Specific Gravity, Urine 1.015 (1.005-1.030); Urine Appearance Clear (CLEAR); Urine Color Yellow (Yellow); Urobilinogen Urine Norm (Negative); pH Urine 5 (5-7)
--- NOTE | 2022-05-21 12:57 | XR_ITS ---
WS: [id number] PORTABLE CHEST HISTORY: Post PICC placement COMPARISON: 10/24/2021 Right-sided PICC line with tip terminating in the distal SVC. Patient's hand is obscuring the LEFT lower thorax. No pleural effusion or pneumothorax. Cardiac size: Normal. Mediastinum/Aorta: Mild atherosclerosis aorta. No osseous abnormality seen. XR/XR chest 1V portable [id number] IMPRESSION: Satisfactory position RIGHT PICC line.
--- NOTE | 2022-05-21 13:30 | PC.NURSE ---
Single lumen PICC placed to right basilic vein without difficulty. Trimmed catheter length 42 cm with 2 cm external length noted. Mid arm circumference measured 10 cm from right AC and noted at 33 cm. Dressing due to be changed tomorrow, 05/22/22. Report given to pt bedside nurseYamileth.
[2022-05-21 13:36] LABS: Potassium, Radom Urine 18 mmol/L; Urine Random Chloride 49 mmol/L; Urine Random Sodium 79 mmol/L
[2022-05-21] MEDS: sodium chloride 0.9% 1,000 ML 75 ML IV (18:40)
--- NOTE | 2022-05-21 19:58 | PC.NURSE ---
Patient A&Ox4, VSS at this time. Anterior lungs auscultated clear, patient on room air. S1 and S2 heart sounds present. Bowel sounds present in all four quadrants of abdomen, abdomen soft and non-tender to touch. Patient reports having a BM today. Left knee dressing dry and intact, pedal pulses 3+ and area warm to touch. Patient had no complaints of pain, and has been getting up to the restroom with walker weight bearing as tolerated. PICC line reported to have been placed in right upper arm, patent and intact at this time. IV on lower right arm patent and asymptomatic at this time. Patient left resting in bed watching television, two side rails up, bed side table and call light within reach. Nurse educated patient to use call light if he needed anything or required assistance getting up. Patient stated no further needs at this time.
[2022-05-21] MEDS: finasteride 5 mg Tablet PO (22:22)
[2022-05-21] MEDS: isosorbide mononitrate ER 30 mg Tablet 15 MG PO (22:28)
[2022-05-22] VITALS (9 sets, daily range): BP systolic 118–164; BP diastolic 66–89; PULSE 74–86; RESP 12–27; TEMP 36.4–37.5; O2SAT 95–96
[2022-05-22] MEDS: acetaminophen 500 mg Tablet 1000 MG PO ×3 (04:09→20:42)
[2022-05-22] MEDS: vancomycin 1,500 MG/300 ML PIGGYBACK 200 MG IV ×2 (04:10→22:00)
[2022-05-22] MEDS: sodium chloride 0.9% 1,000 ML 75 ML IV (04:10)
[2022-05-22 04:29] LABS: Basophils # 0.1 10^3/uL (0.0-0.1); Basophils % 0.9 %; Eosinophils # 0.1 10^3/uL (0.0-0.8); Eosinophils % 1.2 %; Hematocrit 30.5 % (42.0-52.0); Hemoglobin 9.4 g/dL (11.7-16.6); Lymphocytes # 1.6 10^3/uL (0.8-4.8); Lymphocytes % 16.9 %; Mean Corpuscular HGB Conc 30.8 g/dL (30.0-36.0); Mean Corpuscular Hemoglobin 29.5 pg (28.0-34.0); Mean Corpuscular Volume 95.6 fl (80-94); Monocytes # 1.6 10^3/uL (0.2-0.9); Monocytes % 16.9 %; Neutrophils # 5.99 10^3/uL (1.8-7.7); Nucleated Red Blood Cells % 0 %; Platelet Count 285 10^3/cmm (130-400); Red Blood Count 3.19 10^6/uL (4.1-5.3); White Blood Count 9.7 10^3/uL (4.0-10.0)
[2022-05-22 04:58] LABS: Alanine Aminotransferase 20 U/L (0-41); Albumin Level 2.8 g/dL (3.5-5.2); Alkaline Phosphatase 120 U/L (40-130); Blood Urea Nitrogen 13 mg/dL (8-23); Calcium 9.6 mg/dL (8.5-10.5); Carbon Dioxide 20 mmol/L (22-29); Chloride 105 mmol/L (98-107); Chol HDL Ratio 5.55 mg/dL (1.0-5.00); Cholesterol 122 mg/dL (0-200); Globulin 3.7 g/dL (1.3-4.6); Glomerular Filtration Rate 68.1 mL/min (90-130); Glucose 95 mg/dL (65-115); HDL Cholesterol 22 mg/dL (60-100); LDL Cholesterol Calculated 66 mg/dL (50-129); Osmolality Calculated 276 mOsm/kg (285-295); Sodium 133 mmol/L (136-145); Total Bilirubin 0.4 mg/dL (0.15-1.2); Total Protein 6.5 g/dL (6.6-8.7); Triglycerides 169 mg/dL (0-150); VLDL Cholestrol Calculation 34 mg/dL (0-30)
[2022-05-22 05:04] LABS: Vancomycin Trough 7.1 ug/mL (10-15)
[2022-05-22 05:06] LABS: Estmated Average Glucose 91; Hemoglobin A1C 4.8 % (4.0-6.0)
[2022-05-22 05:08] LABS: Anion Gap 12.7 (5-19); Aspartate Amino Transferase 25 U/L (0-40)
[2022-05-22 05:09] LABS: Potassium 4.7 mmol/L (3.5-5.1)
--- NOTE | 2022-05-22 09:52 | PC.NURSE ---
Called Dr. Cline 3 cultures from knee MRSA positive. Dr. Cline said his discharge orders are ready, ask if patient has a PICC and talk with hospitalist about renal issues. Patient will be going home on Vancomycin for 6 weeks.
--- NOTE | 2022-05-22 09:54 | PC.NURSE ---
Spoke to Dr. Wright about discussion with Dr. Cline and spoke to Environment Artist. Environment Artist stated they would take care of setting up antibiotics at home and Dr. Wright stated he would look into the renal issues. Dr. Ellis did teleneph with patient yesterday and he would follow up with that.
[2022-05-22] MEDS: amlodipine 5 mg Tablet PO (09:57)
[2022-05-22] MEDS: sennosides-docusate Tablet 2 TAB PO ×2 (09:57→18:40)
[2022-05-22] MEDS: gabapentin 300 mg Capsule PO ×2 (09:57→18:40)
[2022-05-22] MEDS: metoprolol tartrate 25 mg Tablet 12.5 MG PO ×2 (09:57→18:40)
[2022-05-22] MEDS: oxyCODONE 5 mg IR Tab/Cap PO ×2 (09:58→22:00)
[2022-05-22] MEDS: aspirin 81 mg EC Tablet PO (09:58)
[2022-05-22] MEDS: folic acid 1 mg Tablet PO (09:58)
--- NOTE | 2022-05-22 11:53 | PM.PN ---
Subjective Subjective: No active complaints No overnight events Patient is cleared from orthopedic point of view to go home cost estimating manager is telling me that it might take at least 1 more day to set up IV medications at home DAIN resolved Patient patient doing well Hemodynamically stable, other than hypertension Vitals/I&O/Wt Last Vital Signs Temp 97.6 F 05/22/22 08:36 Pulse 78 05/22/22 08:36 Resp 17 05/22/22 09:58 BP 160/74 05/22/22 08:36 Pulse Ox 95 05/22/22 09:58 O2 Del Method 05/22/22 08:36 O2 Flow Rate 6 05/19/22 17:25 05/21/22 05/22/22 05/22/22 22:59 06:59 14:59 Intake Total 1080 / 1740 1792.5 / 3532.5 240 / 240 Output Total 700 / 700 Balance 1080 / 1740 1092.5 / 2832.5 240 / 240 Physical Exam Narrative: Patient is doing well Laying supine Knee covered in dressing Hemodynamically stable other than hypertension Currently on room air doing well nonfocal neuro exam No active complaints S1, S2 Looks euvolemic Data 05/22/22 04:13 05/22/22 04:13 Micro: Microbiology 05/19/22 16:42 Gram Stain - Final Leg - Left Wound Culture - Final Methicillin Resis Staph Aureus 05/19/22 16:42 Gram Stain - Final Leg - Left Wound Culture - Final Methicillin Resis Staph Aureus 05/19/22 16:42 Gram Stain - Final Leg - Left Anaerobic Culture - Preliminary Wound Culture - Final Methicillin Resis Staph Aureus A&P Assessment and plan (1) Acute kidney injury: (2) Infection of total left knee replacement: (3) Transition of care: (4) Prosthetic joint infection: (5) Lower extremity edema: Plan Left knee prosthetic infection status post washout, I&D, insert exchange 05/19 Patient will need IV vancomycin for 6 weeks We will be able to set up everything at home for the patient he has done IV vancomycin on his own in the past cost estimating manager is telling me that it will take at least 1 more day we might build to set up by Tuesday DAIN has resolved I will continue his losartan for high blood pressure discontinue IV fluid Opioids along bowel regimen Hypertension: Optimize antihypertensive regimen, add losartan, will give first dose now Continue Imdur and amlodipine Also continue metoprolol Full code Regular diet DVT prophylaxis on board Attestations Medical Necessity Statement*: Possible discharge tomorrow Coding Level of Care Code 53084 Diagnoses Acute kidney injury N17.9 Infection of total left knee replacement T84.54XA Transition of care Prosthetic joint infection T84.50XA Lower extremity edema R60.0
[2022-05-22] MEDS: losartan 50 mg Tablet 150 MG PO (13:17)
[2022-05-22] MEDS: rivaroxaban 10 mg Tablet PO (13:17)
[2022-05-22] MEDS: hyDRALAzine 25 mg Tablet PO ×2 (13:17→18:40)
--- NOTE | 2022-05-22 13:35 | PM.PN ---
Subjective Subjective: Picc line placed yesterday. organism from OR cx identified as MRSA. T max 99.7 overnight. No acute interim events. Renal function improved Medications: Reviewed: Yes Vitals/I&O/Wt Last Vital Signs Temp 97.6 F 05/22/22 08:36 Pulse 78 05/22/22 08:36 Resp 17 05/22/22 09:58 BP 164/83 05/22/22 13:17 Pulse Ox 95 05/22/22 09:58 O2 Del Method 05/22/22 08:36 O2 Flow Rate 6 05/19/22 17:25 05/21/22 05/22/22 05/22/22 22:59 06:59 14:59 Intake Total 1080 / 1740 1792.5 / 3532.5 240 / 240 Output Total 700 / 700 Balance 1080 / 1740 1092.5 / 2832.5 240 / 240 Physical Exam Narrative: Seen with RN with telemedicine cart General: No acute distress, AO x3 HEENT: PERRLA, pupils bilaterally equal and reactive, pallors not present Chest: Normal vesicular breath sounds, no added sounds, equal good air entry bilaterally CVS: S1-S2 regular, no murmurs, no tachycardia, no gallops, no rubs Abdomen: Soft, nontender, no organomegaly, bowel sounds present Neuro: No focal deficits, no facial deformity, AO x3, power 5/5 in all limbs EXT: left knee in post op bandage and REY wrap, not opened for exam Data 05/22/22 04:13 05/22/22 04:13 Micro: Microbiology 05/19/22 16:42 Gram Stain - Final Leg - Left Wound Culture - Final Methicillin Resis Staph Aureus 05/19/22 16:42 Gram Stain - Final Leg - Left Wound Culture - Final Methicillin Resis Staph Aureus 05/19/22 16:42 Gram Stain - Final Leg - Left Anaerobic Culture - Preliminary Wound Culture - Final Methicillin Resis Staph Aureus A&P Assessment and plan (1) Status post left knee replacement: (2) Prosthetic joint infection: (3) Hematoma of left knee region: Plan Patient with recent left knee replacement on 05/03/22 p/w fever, redness and drainage from left knee with elevated inflammatory markers. S/p I&D with insert exchange on 05/19 Blood cx thus far NGTD OR joint cx with MRSA Will plan to treat with AT LEAST 6 weeks of iv Vancomycin + add Rifampin at discharge if joint salvage attempted given early infection. Iv vancomycin dose to be 2g iv daily since renal function now back at baseline Twice a week creatinine, vancomycin trough and weekly LFTs while on the above regimen. HH arranged for Picc line care and lab draws Attestations Medical Necessity Statement*: per admitting Coding Level of Care Code Acute Code for Chg Fwd Diagnoses Status post left knee replacement Z96.652 Prosthetic joint infection T84.50XA Hematoma of left knee region S80.02XA
[2022-05-22] MEDS: isosorbide mononitrate ER 30 mg Tablet 15 MG PO (20:42)
[2022-05-22] MEDS: finasteride 5 mg Tablet PO (20:42)
[2022-05-23] VITALS (10 sets, daily range): BP systolic 117–161; BP diastolic 63–91; PULSE 70–88; RESP 14–24; TEMP 36.6–37.3; O2SAT 94–98
[2022-05-23] MEDS: oxyCODONE 5 mg IR Tab/Cap PO ×3 (02:50→20:49)
[2022-05-23] MEDS: acetaminophen 500 mg Tablet 1000 MG PO ×3 (04:56→20:48)
[2022-05-23 05:49] LABS: Anion Gap 16.2 (5-19); Blood Urea Nitrogen 11 mg/dL (8-23); Calcium 9.9 mg/dL (8.5-10.5); Carbon Dioxide 19 mmol/L (22-29); Chloride 104 mmol/L (98-107); Creatinine Clr Calc Pharmacy 89.8221; Glucose 104 mg/dL (65-115); Osmolality Calculated 280 mOsm/kg (285-295); Potassium 4.2 mmol/L (3.5-5.1); Sodium 135 mmol/L (136-145)
[2022-05-23] MEDS: amlodipine 5 mg Tablet PO (09:44)
[2022-05-23] MEDS: aspirin 81 mg EC Tablet PO (09:44)
[2022-05-23] MEDS: losartan 50 mg Tablet 150 MG PO (09:44)
[2022-05-23] MEDS: sennosides-docusate Tablet 2 TAB PO ×2 (09:44→17:24)
[2022-05-23] MEDS: rivaroxaban 10 mg Tablet PO (09:44)
[2022-05-23] MEDS: gabapentin 300 mg Capsule PO ×2 (09:45→17:24)
[2022-05-23] MEDS: metoprolol tartrate 25 mg Tablet 12.5 MG PO ×2 (09:45→17:24)
[2022-05-23] MEDS: hyDRALAzine 25 mg Tablet PO ×2 (09:45→17:24)
[2022-05-23] MEDS: folic acid 1 mg Tablet PO (09:45)
--- NOTE | 2022-05-23 12:57 | P.PN_ITS ---
Subjective Subjective: Poke with Dr. Robertson who is recommending rifampin p.o. regimen outpatient For now we will discharge patient on 2 g of IV vancomycin Home health services have not gotten any approval from his insurance That is what delaying the patient from being discharged from the hospital Otherwise he is stable afebrile wound showing MRSA blood cultures negative to date No overnight events Vitals/I&O/Wt Last Vital Signs Temp 98.1 F 05/23/22 12:07 Pulse 75 05/23/22 12:07 Resp 16 05/23/22 12:07 BP 130/82 05/23/22 12:07 Pulse Ox 98 05/23/22 12:07 O2 Del Method 05/23/22 08:37 O2 Flow Rate 6 05/19/22 17:25 05/22/22 05/23/22 05/23/22 22:59 06:59 14:59 Intake Total 120 / 480 1600 / 2080 840 / 840 Output Total 300 / 300 500 / 800 Balance -180 / 180 1100 / 1280 840 / 840 Physical Exam Narrative: Patient sitting comfortably in his bed Awake and alert He was noted to be discharged however agreeable to stay 1 more day because of his insurance delay for home health services Awake and alert Dressing nice and clean no active drainage Abdomen soft S1, S2 Doing well on room air Pleasant and cooperative Data 05/22/22 04:13 05/23/22 05:21 Micro: Microbiology 05/19/22 16:42 Gram Stain - Final Leg - Left Anaerobic Culture - Preliminary Wound Culture - Final Methicillin Resis Staph Aureus 05/21/22 08:33 MRSA Culture - Final Nose 05/19/22 16:42 Gram Stain - Final Leg - Left Wound Culture - Final Methicillin Resis Staph Aureus 05/19/22 16:42 Gram Stain - Final Leg - Left Wound Culture - Final Methicillin Resis Staph Aureus A&P Assessment and plan (1) HTN (hypertension): Qualifiers: Hypertension type: essential hypertension Qualified Code(s): I10 - Essential (primary) hypertension (2) Lower extremity edema: (3) Iron deficiency anemia: (4) Acute kidney injury: (5) Hematoma of left knee region: (6) Infection of total left knee replacement: (7) Transition of care: (8) Status post left knee replacement: (9) On anticoagulant therapy: Plan We will discharge patient on 2 g of IV vancomycin tomorrow once he gets approval by home health services via insurance DAIN: Resolved with IV fluid hydration Dr. Robertson recommending rifampin outpatient p.o. regimen once he evaluates the patient in her clinic Recommendations are noted and clarified with the case management Patient remains full code Currently on Xarelto Regular diet Full code Dressing instructions given Attestations Medical Necessity Statement*: Discharge tomorrow Coding Level of Care Code 16227 Straight Forward/Low MDM includes number and complexity of problems actively addressed during encounter, amount and/or complexity of data reviewed/ordered and described risk of complication, morbidity or mortality of management as d ocumented Diagnoses HTN (hypertension) I10 Hypertension type: essential hypertension Lower extremity edema R60.0 Iron deficiency anemia D50.9 Acute kidney injury N17.9 Hematoma of left knee region S80.02XA Infection of total left knee replacement T84.54XA Transition of care Status post left knee replacement Z96.652 On anticoagulant therapy Z79.01
--- NOTE | 2022-05-23 15:59 | PM.MISC ---
Miscellaneous Note Purpose of Documentation: Brief orthopedic note: Orthopedic surgeon on-call was contacted pertaining to patient's dressing recommendations at discharge. Reviewed patient's record and chart. Patient was seen evaluated by myself. Dressing was subsequently taken down incision was inspected sutures in place. Patient did have erythema noted small amounts of bloody discharge but no significant drainage appreciated or purulent drainage noted. At this point time would recommend dressings of Xeroform 4 x 4's ABD Curlex and an Isaías wrap. Patient is able to set up with follow-up with Dr. Cline upon discharge. Will defer to Dr. Cline for further treatment and dressing recommendations. No further intervention from orthopedic standpoint at this time. Patient understands and agrees with current plan. All questions answered.
[2022-05-23] MEDS: vancomycin 1,500 MG/300 ML PIGGYBACK 200 MG IV (16:30)
[2022-05-23] MEDS: finasteride 5 mg Tablet PO (20:49)
[2022-05-23] MEDS: isosorbide mononitrate ER 30 mg Tablet 15 MG PO (20:49)
[2022-05-24 00:44] VITALS: RESP 16
[2022-05-24] MEDS: oxyCODONE 5 mg IR Tab/Cap PO ×2 (00:44→04:51)
[2022-05-24 00:56] VITALS: BP 114/65; PULSE 76; RESP 23; TEMP 36.7; O2SAT 96
[2022-05-24 04:29] VITALS: BP 110/67; PULSE 77; RESP 21; TEMP 37.1; O2SAT 95
[2022-05-24 04:51] VITALS: RESP 16
[2022-05-24] MEDS: acetaminophen 500 mg Tablet 1000 MG PO (04:51)
--- NOTE | 2022-05-24 06:42 | PM.MISC ---
Miscellaneous Note Note: Hospitalist team was consulted, discharge summary to be done by orthopedics, patient will go home on 2 g of vancomycin for 4 to 6 weeks, Dr. Robertson will add p.o. rifampin once he gets evaluated at her clinic, he will get serial chemistries which will be sent to her clinic on weekly basis, home health services set up
[2022-05-24 07:37] VITALS: BP 151/88; PULSE 101; RESP 18; TEMP 36.6; O2SAT 95
[2022-05-24] MEDS: isosorbide mononitrate ER 30 mg Tablet PO (08:56)
[2022-05-24] MEDS: amlodipine 5 mg Tablet PO (08:57)
[2022-05-24] MEDS: rivaroxaban 10 mg Tablet PO (08:57)
[2022-05-24] MEDS: folic acid 1 mg Tablet PO (08:57)
[2022-05-24] MEDS: hyDRALAzine 25 mg Tablet PO (08:57)
[2022-05-24] MEDS: losartan 50 mg Tablet 150 MG PO (08:57)
[2022-05-24] MEDS: aspirin 81 mg EC Tablet PO (08:57)
[2022-05-24] MEDS: sennosides-docusate Tablet 2 TAB PO (08:57)
[2022-05-24] MEDS: metoprolol tartrate 25 mg Tablet 12.5 MG PO (08:57)
[2022-05-24] MEDS: gabapentin 300 mg Capsule PO (08:57)
[2022-05-24] MEDS: vancomycin 1,500 MG/300 ML PIGGYBACK 200 MG IV (09:01)
[2022-05-24 11:38] VITALS: BP 151/88; PULSE 101; RESP 18; TEMP 36.6; O2SAT 95
== END 2022-05-24 11:00 | disposition home health service (06) | DRG 486 ==
PROVIDERS: Internal Medicine; Student in an Organized Health Care Education/Training Program; Admitting Provider Orthopaedic Surgery; PCP Nurse Practitioner Family; Visit Provider Orthopaedic Surgery
PROC: 0SPD09Z Removal of Liner from Left Knee Joint, Open Approach (ICD-10-PCS; principal; 2022-05-19 15:00)
PROC: 0SPD09Z Removal of Liner from Left Knee Joint, Open Approach (ICD-10-PCS; 2022-05-19 15:00)
DX: T84.54XA Infection and inflammatory reaction due to internal left knee prosthesis, initial encounter (principal); N17.9 Acute kidney failure, unspecified; Y79.8 Miscellaneous orthopedic devices associated with adverse incidents, not elsewhere classified; S70.12XA Contusion of left thigh, initial encounter; S76.112A Strain of left quadriceps muscle, fascia and tendon, initial encounter; I25.10 Atherosclerotic heart disease of native coronary artery without angina pectoris; Z86.718 Personal history of other venous thrombosis and embolism; Z86.16 Personal history of COVID-19; I10 Essential (primary) hypertension; E78.5 Hyperlipidemia, unspecified; D50.9 Iron deficiency anemia, unspecified; Z87.891 Personal history of nicotine dependence; N20.0 Calculus of kidney; B95.62 Methicillin resistant Staphylococcus aureus infection as the cause of diseases classified elsewhere
CPT/HCPCS: 36415; 36569; 71045; 74176; 76770; 80048; 80053; 80061; 80202; 81003; 82436; 82570; 82607; 82746; 83036; 83540; 83550; 84133; 84300; 84443; 85025; 85651; 86140; 87040; 87070; 87075; 87077; 87186; 87205; 87641; 97110; 97116; 97161; 97165; C1776; G0378; G0379; J1170; J2250; J2270; J2405; J2704; J3010; J3370; J7030; Q3014

== ENCOUNTER 2022-05-26 14:01 | Outpatient (CLI) | payer OTHER, SELFPAY ==
[2022-05-26 14:34] LABS: Alanine Aminotransferase 39 U/L (0-41); Albumin Level 3.3 g/dL (3.5-5.2); Alkaline Phosphatase 131 U/L (40-130); Aspartate Amino Transferase 30 U/L (0-40); Globulin 4.1 g/dL (1.3-4.6); Total Bilirubin 0.4 mg/dL (0.15-1.2); Total Protein 7.4 g/dL (6.6-8.7)
[2022-05-26 14:37] LABS: Vancomycin Trough 11.4 ug/mL (10-15)
== END 2022-05-26 14:02 | disposition home or self-care (01) ==
LOC: LAB 14:03
PROVIDERS: PCP Nurse Practitioner Family; Visit Provider Student in an Organized Health Care Education/Training Program
DX: Z01.89 Encounter for other specified special examinations (principal)
CPT/HCPCS: 80076; 80202; 82565; 86140

== ENCOUNTER 2022-05-28 13:22 | Outpatient (CLI) | payer OTHER, SELFPAY ==
[2022-05-28 14:05] LABS: Alanine Aminotransferase 31 U/L (0-41); Albumin Level 3.4 g/dL (3.5-5.2); Alkaline Phosphatase 125 U/L (40-130); Aspartate Amino Transferase 24 U/L (0-40); C Reactive Protein 72.1 mg/L (0.0-4.9); Globulin 4.4 g/dL (1.3-4.6); Glomerular Filtration Rate 68.1 mL/min (90-130); Total Bilirubin 0.3 mg/dL (0.15-1.2); Total Protein 7.8 g/dL (6.6-8.7)
[2022-05-28 14:06] LABS: Vancomycin Trough 14.5 ug/mL (10-15)
== END 2022-05-28 13:23 | disposition home or self-care (01) ==
LOC: LAB 13:23
PROVIDERS: PCP Nurse Practitioner Family; Visit Provider Student in an Organized Health Care Education/Training Program
DX: T84.54XA Infection and inflammatory reaction due to internal left knee prosthesis, initial encounter (principal); Y83.8 Other surgical procedures as the cause of abnormal reaction of the patient, or of later complication, without mention of misadventure at the time of the procedure; Z79.899 Other long term (current) drug therapy
CPT/HCPCS: 80076; 80202; 82565; 86140

== ENCOUNTER → 2022-06-01 08:55 | Outpatient (BNVA) | payer OTHER, SELFPAY | PROVIDERS: PCP Nurse Practitioner Family; Visit Provider Orthopaedic Surgery | DX: T84.54XA Infection and inflammatory reaction due to internal left knee prosthesis, initial encounter (principal); X58.XXXA Exposure to other specified factors, initial encounter | CPT/HCPCS: 36415; 80076; 80202; 82565; 86140 ==

== ENCOUNTER 2022-06-03 | Outpatient (CLI) | payer OTHER, SELFPAY ==
[2022-06-03 17:04] LABS: Alanine Aminotransferase 13 U/L (0-41); Albumin Level 3.5 g/dL (3.5-5.2); Alkaline Phosphatase 122 U/L (40-130); Aspartate Amino Transferase 14 U/L (0-40); C Reactive Protein 37.6 mg/L (0.0-4.9); Globulin 3.9 g/dL (1.3-4.6); Glomerular Filtration Rate 44.2 mL/min (90-130); Total Bilirubin 0.3 mg/dL (0.15-1.2); Total Protein 7.4 g/dL (6.6-8.7)
== END 2022-06-03 23:00 | disposition home or self-care (01) ==
LOC: LAB 08-18 09:51
PROVIDERS: PCP Nurse Practitioner Family; Visit Provider Student in an Organized Health Care Education/Training Program
DX: T84.54XA Infection and inflammatory reaction due to internal left knee prosthesis, initial encounter (principal); Y79.2 Prosthetic and other implants, materials and accessory orthopedic devices associated with adverse incidents
CPT/HCPCS: 80076; 80202; 82565; 86140

== ENCOUNTER 2022-06-07 18:03 | Outpatient (CLI) | payer OTHER, SELFPAY ==
[2022-06-07 18:35] LABS: Alanine Aminotransferase 15 U/L (0-41); Albumin Level 3.8 g/dL (3.5-5.2); Alkaline Phosphatase 125 U/L (40-130); Aspartate Amino Transferase 19 U/L (0-40); C Reactive Protein 44.7 mg/L (0.0-4.9); Glomerular Filtration Rate 56.1 mL/min (90-130); Total Bilirubin 0.2 mg/dL (0.15-1.2); Total Protein 7.8 g/dL (6.6-8.7)
[2022-06-07 18:36] LABS: Vancomycin Trough 12.5 ug/mL (10-15)
== END 2022-06-07 18:04 | disposition home or self-care (01) ==
LOC: LAB 18:05
PROVIDERS: PCP Nurse Practitioner Family; Visit Provider Student in an Organized Health Care Education/Training Program
DX: T84.54XA Infection and inflammatory reaction due to internal left knee prosthesis, initial encounter (principal); X58.XXXA Exposure to other specified factors, initial encounter
CPT/HCPCS: 80076; 80202; 82565; 86140

== ENCOUNTER 2022-06-10 16:03 | Outpatient (CLI) | payer OTHER, SELFPAY ==
[2022-06-10 16:51] LABS: Vancomycin Trough 18.8 ug/mL (10-15)
[2022-06-10 16:52] LABS: Alanine Aminotransferase 17 U/L (0-41); Albumin Level 3.9 g/dL (3.5-5.2); Alkaline Phosphatase 122 U/L (40-130); Aspartate Amino Transferase 22 U/L (0-40); C Reactive Protein 42.8 mg/L (0.0-4.9); Globulin 4.2 g/dL (1.3-4.6); Glomerular Filtration Rate 41.2 mL/min (90-130); Total Bilirubin 0.3 mg/dL (0.15-1.2); Total Protein 8.1 g/dL (6.6-8.7)
== END 2022-06-10 16:04 | disposition home or self-care (01) ==
LOC: LAB 16:04
PROVIDERS: PCP Nurse Practitioner Family; Visit Provider Student in an Organized Health Care Education/Training Program
DX: T84.54XA Infection and inflammatory reaction due to internal left knee prosthesis, initial encounter (principal); X58.XXXA Exposure to other specified factors, initial encounter
CPT/HCPCS: 80076; 80202; 82565; 86140

== ENCOUNTER → 2022-06-16 10:46 | Outpatient (BNVA) | payer OTHER, SELFPAY | PROVIDERS: PCP Nurse Practitioner Family; Visit Provider Nurse Practitioner Family | DX: T84.54XA Infection and inflammatory reaction due to internal left knee prosthesis, initial encounter (principal); Y83.8 Other surgical procedures as the cause of abnormal reaction of the patient, or of later complication, without mention of misadventure at the time of the procedure; Z79.899 Other long term (current) drug therapy; F32.A Depression, unspecified; T82.838A Hemorrhage due to vascular prosthetic devices, implants and grafts, initial encounter | CPT/HCPCS: 80076; 80202; 82565; 85025; 86140 ==

== ENCOUNTER → 2022-06-17 09:33 | Day surgery (SDC) | payer OTHER, SELFPAY ==
--- NOTE | 2022-06-17 09:34 | XR_ITS ---
WS: [id number] EXAMINATION: XR chest 1V portable [id number] REASON FOR EXAM: PICC line confirmation COMPARISON: 05/21/2022 ORDER DATE: 06/17/2022 10:59 AM TECHNIQUE: A single, portable frontal chest x-ray was obtained. X-RAY FINDINGS: The lungs are clear. Pleural spaces are clear. No pleural effusions or pneumothorax. Cardiomediastinal silhouette is normal. No evidence for pulmonary edema. Soft tissue and osseous structures are unremarkable except for an old midshaft fracture of the right clavicle Left-sided PICC line terminates at the cavoatrial junction in satisfactory central position. XR/XR chest 1V portable [id number] IMPRESSION: Unremarkable frontal portable chest x-ray. Satisfactory PICC line position.
[2022-06-17 09:50] VITALS: BP 163/90; PULSE 60; RESP 18; TEMP 36.3; O2SAT 97; BMI 31.6
--- NOTE | 2022-06-17 12:15 | PC.NURSE ---
1120, 5f single luman PICC line placed in left bacilic vein with moderate difficulty by Ying Kirby RN, BSN. Portable CXR done to verify PICC placement. Tip of PICC line in the cavoatrial junction. PICC secured with STAT lock and sterile dressing applied. PICC has good blood return and flushes easily. Preceptor Enriqueta Martínez RN assisted with the procedure.
--- NOTE | 2022-06-17 14:21 | PC.NURSE ---
1405-Mr Garay came back to the hospital because he noticed that the PICC line site was bleeding and had saturated the dressing. I redressed the site and held pressure for 3 minutes. PICC line flushed easily and had good blood return.
== END ==
PROVIDERS: PCP Nurse Practitioner Family; Visit Provider Student in an Organized Health Care Education/Training Program
DX: T84.59XA Infection and inflammatory reaction due to other internal joint prosthesis, initial encounter (principal); Y83.8 Other surgical procedures as the cause of abnormal reaction of the patient, or of later complication, without mention of misadventure at the time of the procedure
CPT/HCPCS: 36569; 71045

== ENCOUNTER 2022-06-21 | Outpatient (CLI) | payer OTHER, SELFPAY ==
[2022-06-21 14:47] LABS: Alanine Aminotransferase 15 U/L (0-41); Albumin Level 3.8 g/dL (3.5-5.2); Alkaline Phosphatase 123 U/L (40-130); Aspartate Amino Transferase 20 U/L (0-40); C Reactive Protein 20.8 mg/L (0.0-4.9); Globulin 3.8 g/dL (1.3-4.6); Total Bilirubin 0.3 mg/dL (0.15-1.2); Total Protein 7.6 g/dL (6.6-8.7)
[2022-06-21 15:03] LABS: Vancomycin Trough 18.7 ug/mL (10-15)
== END 2022-06-21 23:00 | disposition home or self-care (01) ==
LOC: LAB 08-18 09:48
PROVIDERS: PCP Nurse Practitioner Family; Visit Provider Student in an Organized Health Care Education/Training Program
DX: T84.54XA Infection and inflammatory reaction due to internal left knee prosthesis, initial encounter (principal); Y79.2 Prosthetic and other implants, materials and accessory orthopedic devices associated with adverse incidents
CPT/HCPCS: 80076; 80202; 82565; 86140

== ENCOUNTER → 2022-06-24 10:15 | Outpatient (BNVA) | payer OTHER, SELFPAY | PROVIDERS: PCP Nurse Practitioner Family; Visit Provider Student in an Organized Health Care Education/Training Program | DX: R06.00 Dyspnea, unspecified (principal); T84.54XA Infection and inflammatory reaction due to internal left knee prosthesis, initial encounter; Z79.899 Other long term (current) drug therapy; Y79.2 Prosthetic and other implants, materials and accessory orthopedic devices associated with adverse incidents | CPT/HCPCS: 36415; 71045; 80053; 80202; 85025; 86140; 93970 ==

== ENCOUNTER 2022-06-29 17:46 | Outpatient (CLI) | payer OTHER, SELFPAY ==
[2022-06-29 19:06] LABS: Alanine Aminotransferase 17 U/L (0-41); Albumin Level 3.9 g/dL (3.5-5.2); Alkaline Phosphatase 118 U/L (40-130); Aspartate Amino Transferase 17 U/L (0-40); C Reactive Protein 18.1 mg/L (0.0-4.9); Globulin 3.3 g/dL (1.3-4.6); Total Bilirubin 0.3 mg/dL (0.15-1.2); Total Protein 7.2 g/dL (6.6-8.7)
== END 2022-06-29 17:47 | disposition home or self-care (01) ==
LOC: LAB 17:50
PROVIDERS: PCP Nurse Practitioner Family; Visit Provider Student in an Organized Health Care Education/Training Program
DX: T84.54XA Infection and inflammatory reaction due to internal left knee prosthesis, initial encounter (principal); X58.XXXA Exposure to other specified factors, initial encounter
CPT/HCPCS: 80076; 82565; 86140

== ENCOUNTER 2022-07-01 15:38 | Outpatient (CLI) | payer OTHER, SELFPAY ==
[2022-07-01 16:36] LABS: Vancomycin Trough 22.7 ug/mL (10-15)
[2022-07-01 16:40] LABS: Alanine Aminotransferase 17 U/L (0-41); Alkaline Phosphatase 123 U/L (40-130); Aspartate Amino Transferase 17 U/L (0-40); C Reactive Protein 24.5 mg/L (0.0-4.9); Globulin 3.6 g/dL (1.3-4.6); Total Bilirubin 0.3 mg/dL (0.15-1.2); Total Protein 7.6 g/dL (6.6-8.7)
== END 2022-07-01 15:39 | disposition home or self-care (01) ==
PROVIDERS: PCP Nurse Practitioner Family; Visit Provider Student in an Organized Health Care Education/Training Program
DX: T84.54XA Infection and inflammatory reaction due to internal left knee prosthesis, initial encounter (principal); X58.XXXA Exposure to other specified factors, initial encounter
CPT/HCPCS: 80076; 80202; 82565; 86140

== ENCOUNTER 2022-07-05 | Outpatient (CLI) | payer OTHER, SELFPAY ==
[2022-07-05 19:34] LABS: Alanine Aminotransferase 16 U/L (0-41); Albumin Level 3.9 g/dL (3.5-5.2); Alkaline Phosphatase 116 U/L (40-130); Aspartate Amino Transferase 19 U/L (0-40); C Reactive Protein 18.4 mg/L (0.0-4.9); Globulin 3.3 g/dL (1.3-4.6); Total Bilirubin 0.2 mg/dL (0.15-1.2); Total Protein 7.2 g/dL (6.6-8.7)
[2022-07-05 19:35] LABS: Vancomycin Trough 18.2 ug/mL (10-15)
== END 2022-07-05 23:00 | disposition home or self-care (01) ==
LOC: LAB 08-18 09:49
PROVIDERS: PCP Nurse Practitioner Family; Visit Provider Student in an Organized Health Care Education/Training Program
DX: T84.54XA Infection and inflammatory reaction due to internal left knee prosthesis, initial encounter (principal); Y79.2 Prosthetic and other implants, materials and accessory orthopedic devices associated with adverse incidents
CPT/HCPCS: 80076; 80202; 82565; 86140

== ENCOUNTER 2022-07-08 | Outpatient (CLI) | payer OTHER, SELFPAY ==
[2022-07-08 13:25] LABS: Alanine Aminotransferase 16 U/L (0-41); Albumin Level 3.9 g/dL (3.5-5.2); Alkaline Phosphatase 122 U/L (40-130); Anion Gap 15.7 (5-19); Aspartate Amino Transferase 18 U/L (0-40); Blood Urea Nitrogen 13 mg/dL (8-23); Calcium 9.6 mg/dL (8.5-10.5); Carbon Dioxide 22 mmol/L (22-29); Chloride 104 mmol/L (98-107); Globulin 3.9 g/dL (1.3-4.6); Glomerular Filtration Rate 56.1 mL/min (90-130); Glucose 83 mg/dL (65-115); Osmolality Calculated 285 mOsm/kg (285-295); Potassium 3.7 mmol/L (3.5-5.1); Sodium 138 mmol/L (136-145); Total Bilirubin 0.3 mg/dL (0.15-1.2); Total Protein 7.8 g/dL (6.6-8.7)
== END 2022-07-08 23:00 | disposition home or self-care (01) ==
LOC: LAB 08-18 09:50
PROVIDERS: PCP Nurse Practitioner Family; Visit Provider Student in an Organized Health Care Education/Training Program
DX: T84.54XA Infection and inflammatory reaction due to internal left knee prosthesis, initial encounter (principal); Y79.2 Prosthetic and other implants, materials and accessory orthopedic devices associated with adverse incidents
CPT/HCPCS: 80053

== ENCOUNTER 2022-07-12 06:00 | Outpatient (RCR) | payer OTHER, SELFPAY | END 2022-07-25 23:59 | disposition home or self-care (01) | LOC: WPT 06:00 | PROVIDERS: PCP Nurse Practitioner Family; Visit Provider Orthopaedic Surgery | DX: Z47.1 Aftercare following joint replacement surgery (principal); Z96.652 Presence of left artificial knee joint | CPT/HCPCS: 97110; 97112; 97161 ==

== ENCOUNTER → 2022-07-14 09:54 | Outpatient (BNVA) | payer OTHER, SELFPAY | PROVIDERS: PCP Nurse Practitioner Family; Visit Provider Student in an Organized Health Care Education/Training Program | DX: T84.59XA Infection and inflammatory reaction due to other internal joint prosthesis, initial encounter (principal); Y83.8 Other surgical procedures as the cause of abnormal reaction of the patient, or of later complication, without mention of misadventure at the time of the procedure | CPT/HCPCS: 80053 ==

== ENCOUNTER → 2022-07-21 09:57 | Outpatient (BNVA) | payer OTHER, SELFPAY | PROVIDERS: PCP Nurse Practitioner Family; Visit Provider Student in an Organized Health Care Education/Training Program | DX: T84.59XA Infection and inflammatory reaction due to other internal joint prosthesis, initial encounter (principal); Z96.659 Presence of unspecified artificial knee joint; I25.10 Atherosclerotic heart disease of native coronary artery without angina pectoris; Y83.8 Other surgical procedures as the cause of abnormal reaction of the patient, or of later complication, without mention of misadventure at the time of the procedure | CPT/HCPCS: 80053 ==

== ENCOUNTER 2022-07-26 06:00 | Outpatient (RCR) | payer OTHER, SELFPAY | END 2022-08-25 23:59 | disposition home or self-care (01) | LOC: WPT 06:00 | PROVIDERS: PCP Nurse Practitioner Family; Visit Provider Orthopaedic Surgery | DX: Z47.1 Aftercare following joint replacement surgery (principal); Z96.652 Presence of left artificial knee joint | CPT/HCPCS: 97110; 97112; 97140; 97530 ==

== ENCOUNTER → 2022-07-28 12:33 | Outpatient (BNVA) | payer OTHER, SELFPAY | PROVIDERS: PCP Nurse Practitioner Family; Visit Provider Student in an Organized Health Care Education/Training Program | DX: T84.59XA Infection and inflammatory reaction due to other internal joint prosthesis, initial encounter (principal); Z96.659 Presence of unspecified artificial knee joint; Y83.8 Other surgical procedures as the cause of abnormal reaction of the patient, or of later complication, without mention of misadventure at the time of the procedure; Y79.8 Miscellaneous orthopedic devices associated with adverse incidents, not elsewhere classified | CPT/HCPCS: 80053 ==

== ENCOUNTER → 2022-08-04 14:55 | Outpatient (BNVA) | payer OTHER, SELFPAY | PROVIDERS: PCP Nurse Practitioner Family; Visit Provider Student in an Organized Health Care Education/Training Program | DX: M79.89 Other specified soft tissue disorders (principal) | CPT/HCPCS: 80053; 85025; 86140 ==

== ENCOUNTER → 2022-08-11 11:15 | Outpatient (BNVA) | payer OTHER, SELFPAY | PROVIDERS: PCP Nurse Practitioner Family; Visit Provider Nurse Practitioner Family | DX: T84.59XA Infection and inflammatory reaction due to other internal joint prosthesis, initial encounter (principal); Z96.659 Presence of unspecified artificial knee joint; F32.A Depression, unspecified | CPT/HCPCS: 80053 ==

== ENCOUNTER → 2022-11-23 08:03 | Outpatient (BNVA) | payer OTHER, SELFPAY | PROVIDERS: PCP Nurse Practitioner Family; Visit Provider Nurse Practitioner Family | DX: Z96.652 Presence of left artificial knee joint; Z96.651 Presence of right artificial knee joint; T84.59XA Infection and inflammatory reaction due to other internal joint prosthesis, initial encounter; Y79.2 Prosthetic and other implants, materials and accessory orthopedic devices associated with adverse incidents | CPT/HCPCS: 73560; 73565 ==

== ENCOUNTER → 2023-05-16 08:25 | Outpatient (BNVA) | payer SELFPAY | PROVIDERS: PCP Nurse Practitioner Family; Visit Provider Specialist | DX: M25.561 Pain in right knee (principal); Z96.651 Presence of right artificial knee joint; G89.29 Other chronic pain; M79.89 Other specified soft tissue disorders | CPT/HCPCS: 73560; 73565 ==

== ENCOUNTER → 2023-05-31 10:21 | Outpatient (BNVA) | payer OTHER, SELFPAY | PROVIDERS: PCP Nurse Practitioner Family; Visit Provider Nurse Practitioner Family | DX: I10 Essential (primary) hypertension (principal); E78.5 Hyperlipidemia, unspecified | CPT/HCPCS: 80053; 80061 ==

== ENCOUNTER 2023-06-09 12:06 | Outpatient (CLI) | payer OTHER, SELFPAY ==
--- NOTE | 2023-06-09 12:11 | XRR_ITS ---
PROCEDURE INFORMATION: Exam: XR Chest Exam date and time: 06/09/2023 12:17 PM Age: 62 years old Clinical indication: Cough; Prior surgery; Surgery date: 6+ months; Surgery type: Heart stent; Additional info: R05.9 - cough, unspecified TECHNIQUE: Imaging protocol: Radiologic exam of the chest. Views: 2 views. COMPARISON: CR XR chest 1V [id number] 06/24/2022 12:19 PM FINDINGS: Lungs: Mild have a ventilatory changes at the lung bases. Pleural spaces: Unremarkable. No pleural effusion. No pneumothorax. Heart/Mediastinum: Unremarkable. No cardiomegaly. Bones/joints: Unremarkable. XR/XR chest 2V* [id number] IMPRESSION: No acute findings.
== END 2023-06-09 12:07 | disposition home or self-care (01) ==
LOC: RAD 12:06
PROVIDERS: PCP Nurse Practitioner Family; Visit Provider Nurse Practitioner Family
DX: R05.9 Cough, unspecified (principal)
CPT/HCPCS: 71046

== ENCOUNTER → 2023-06-29 09:14 | Outpatient (BNVA) | payer OTHER, SELFPAY | PROVIDERS: PCP Nurse Practitioner Family; Visit Provider Nurse Practitioner Family | DX: Z79.899 Other long term (current) drug therapy (principal) | CPT/HCPCS: 80076 ==

== ENCOUNTER → 2023-08-30 09:52 | Outpatient (BNVA) | payer OTHER, SELFPAY | PROVIDERS: PCP Nurse Practitioner Family; Visit Provider Nurse Practitioner Family | DX: E78.2 Mixed hyperlipidemia (principal); I10 Essential (primary) hypertension | CPT/HCPCS: 80053; 80061 ==

== ENCOUNTER → 2023-11-30 08:24 | Outpatient (BNVA) | payer OTHER, SELFPAY | PROVIDERS: PCP Nurse Practitioner Family; Visit Provider Nurse Practitioner Family | DX: R35.0 Frequency of micturition (principal) | CPT/HCPCS: 81000 ==

== ENCOUNTER 2024-11-19 10:30 | Outpatient (CLI) | payer MEDICARE, SELFPAY ==
--- NOTE | 2024-11-19 15:28 | XR_ITS ---
Exam: XR hand RT min 3V* [id number] Date/Time of Exam: 11/19/2024 10:38 AM Reason For Exam: M79.644 - Pain in right finger(s) DLP: No acute fracture. Old chip avulsion fracture of the distal end of the second distal phalanx noted. Minimal DJD in the IP joints. No soft tissue foreign bodies. IMPRESSION: 1. Mild DJD. No acute fracture. 2. Probable old distal tuft fracture of the index finger. MTDD
== END 2024-11-19 10:31 | disposition home or self-care (01) ==
PROVIDERS: PCP Nurse Practitioner Family; Visit Provider Nurse Practitioner Family
DX: M19.041 Primary osteoarthritis, right hand (principal); R53.83 Other fatigue; I10 Essential (primary) hypertension
CPT/HCPCS: 73130; 80053; 80061; 84443; 85025

== ENCOUNTER → 2024-12-12 08:17 | Outpatient (BNVA) | payer MEDICARE, SELFPAY | PROVIDERS: PCP Nurse Practitioner Family; Visit Provider Specialist | DX: M65.311 Trigger thumb, right thumb (principal) | CPT/HCPCS: 73130; 99204 ==

== ENCOUNTER → 2025-01-23 09:42 | Outpatient (BNVA) | payer MEDICARE, SELFPAY | PROVIDERS: PCP Nurse Practitioner Family; Visit Provider Specialist | DX: M65.311 Trigger thumb, right thumb (principal); A49.02 Methicillin resistant Staphylococcus aureus infection, unspecified site | CPT/HCPCS: 99213 ==